=== PATIENT | male | born 1965 | race Caucasian/White ===

== ENCOUNTER 2017-07-07 07:04 | Day surgery (SDC) | payer OTHER ==
[~2017-07-07 07:04] MED LIST: Buffered Lidocaine 0.9% SYRIN* 5 ML/SYR SYRINGE INTRADERM ONE
[2017-07-07] MEDS ORDERED: Buffered Lidocaine 0.9% SYRIN* 5 ML/SYR SYRINGE ONE (07:12)
[2017-07-07] MEDS ORDERED: Bupivacaine 0.25% SDV* 30 ML ONE (07:44)
[2017-07-07] MEDS ORDERED: Midazolam* 1 MG/ML 5 ML VIAL (5 MG) ONE (08:37)
[2017-07-07] MEDS ORDERED: fentaNYL* 50 MCG/ML 2 ML VIAL (100 MCG VIAL) ONE (08:44)
[2017-07-07] MEDS ORDERED: Propofol* 10 MG/ML 20 ML BTL IV PUSH ONE (08:53)
[2017-07-07] MEDS ORDERED: Midazolam* 1 MG/ML 2 ML VIAL (2 MG) ONE (08:59)
[2017-07-07] MEDS ORDERED: oxyCODONE TAB* 5 MG TAB PO PRN (09:10)
[2017-07-07] MEDS ORDERED: fentaNYL* 50 MCG/ML 2 ML VIAL (100 MCG VIAL) IV PRN (09:10)
[2017-07-07] MEDS ORDERED: HYDROcodone/ACETAMIN 5-325 MG* 1 TAB PO PRN (09:10)
[2017-07-07] MEDS ORDERED: Ondansetron INJ* 2 MG/ML VIAL IV PRN (09:10)
[2017-07-07] MEDS ORDERED: Naloxone* 0.4 MG/ML 1 ML VIAL IV PRN (09:10)
[2017-07-07 09:50] VITALS: BP 131/71
--- NOTE | 2017-07-08 14:56 | OP ---
DATE OF OPERATION: 07/07/17 - SDS DATE OF : 65 SURGEON: Moises Burkett MD SENIOR EDITOR: VALDEZ Madsen ANESTHESIOLOGIST: Carter Ahmadi MD ANESTHESIA: Local MAC. PRE-OP DIAGNOSIS: Right dorsal ulnar wrist mass. POST-OP DIAGNOSIS: Large right dorsal ulnar wrist cyst. OPERATIVE PROCEDURE: Excision of right dorsal ulnar wrist ganglion cyst coming off the distal radioulnar joint with transposition of the EDQ tendon. INDICATIONS: Prasanna has had enlarging mass over the dorsal ulnar aspect of the wrist. It was bothering him a quite a bit. We talked about risks and benefits. He wanted it excised. ESTIMATED BLOOD LOSS: 2 mL. COMPLICATIONS: None. FINDINGS: See above and below. DESCRIPTION OF PROCEDURE: Prasanna was seen in the preoperative holding area. The correct site and side of the procedure were identified. We came back to the operating room. The arm was prepped and draped in the usual fashion. The time-out was performed. I had infiltrated the operative site with 0.25% plain Marcaine. The arm was exsanguinated with the Esmarch and the tourniquet inflated to 250 mmHg. I made a longitudinal incision right over the fifth dorsal compartment and over the mass. Dissection was carried down. Extensor retinaculum was identified. There were two large areas of ganglion cyst. These were ellipsed out and ultimately tracked down through the extensor retinaculum into the fifth dorsal compartment and ultimately down to the DRUJ. The EDQ tendon was released and transposed dorsal to the retinaculum. Once I had opened up the retinaculum and transposed the tendon, I could easily trace the tendon back and it was excised. I took the Bovie and cauterized the area where it came off the joint. The tendon was left transposed and the extensor retinaculum was closed with 4-0 Ethibond suture. The wound was irrigated and the skin was closed with 4-0 Monocryl and Steri-Strips. Wound was dressed with Xeroform, 4x4, sterile Webril, and a cock-up wrist splint was applied. The tourniquet was deflated. The patient was taken to the recovery room in stable condition. [id number]/[facility] #: [id number] [facility]
== END 2017-07-07 09:56 | disposition home or self-care (01) ==
LOC: OR 07:04
PROVIDERS: ATTEND Orthopaedic Surgery Hand Surgery
DX: M67.431 Ganglion, right wrist (principal); F17.210 Nicotine dependence, cigarettes, uncomplicated; I10 Essential (primary) hypertension; F10.20 Alcohol dependence, uncomplicated; E83.110 Hereditary hemochromatosis; K29.70 Gastritis, unspecified, without bleeding
CPT/HCPCS: 88304; J2250; J2704; J3010

== ENCOUNTER 2018-03-15 21:19 | Inpatient (IN) | payer OTHER ==
[2018-03-15 21:52] LABS: EGFR Non-African American 116.5 (>60)
[2018-03-15] MEDS ORDERED: NS 0.9% 1000 ML* 1,000 ML IV ONE (22:14)
[2018-03-15 22:33] LABS: Hematocrit 45 % (42-52); Hemoglobin 15.1 g/dl (14.0-18.0); Mean Corpuscular HGB Conc 34 g/dl (31-36); Mean Corpuscular Hemoglobin 36 pg (27-31); Mean Corpuscular Volume 106 fL (80-94); Red Blood Count 4.22 10^6/ul (4.00-5.40); Red Cell Distribution Width 16 % (10.5-15); White Blood Count 4.9 10^3/ul (3.5-10.8)
--- NOTE | 2018-03-15 22:33 | ED ---
Syncope/Near Syncope - HPI Summary HPI Summary: This patient is a 52 year old M presenting to [facility] accompanied by his and daughter with a chief complaint of multiple witnessed syncopal episodes since falling backwards on stairs, with at least 5 episodes SHIPFITTER, and at least 3 since arrival. Pt was walking up stairs and fell backwards. He laid down for a few hours, and when he woke up starting fainting recurrently. PMHx HTN, hemochromatosis, 7x MIs with no stents. PMHx alcohol use; 15 beers every 2 days. He endorses chronic bilateral lower extremity numbness. He denies PMHx CVA. Pt denies any pain, LEE. He denies using recreational drugs, and endorses smoking. - History Of Current Complaint Chief Complaint: EDSyncope Time Seen by Provider: 03/15/18 21:35 Hx Obtained From: Patient, Family/Computer Lab Para Professional Onset/Duration: Sudden Onset, Lasting Hours, Still Present Timing: Intermittent Episode Lasting - seconds Context: Witnessed, Loss Of Consciousness Activity At Onset: At Rest Associated Head Trauma: No Aggravating Factor(s): Nothing Alleviating Factor(s): Nothing Associated Signs And Symptoms: Head Trauma (Recent) - possible, fell on stairs prior to sx onset, but denies head pain., Numbness - BLE, chronic Frequency: Episodes x___ - at least 8, Episodes Lasting ____ (in Mins/Days/Weeks /Years) - seconds - Allergies/Home Medications Allergies/Adverse Reactions: Allergies Allergy/AdvReac Type Severity Reaction Status Date / Time cyclobenzaprine Allergy Severe Anaphylatic Verified 09/04/17 11:22 [From Flexeril] Shock latex Allergy Rash Verified 09/04/17 11:22 aspirin AdvReac Stomach Verified 09/04/17 11:22 Cramps ibuprofen AdvReac Stomach Verified 09/04/17 11:22 Cramps PMH/Surg Hx/FS Hx/Imm Hx Endocrine/Hematology History: Reports: Other Endocrine/Hematological Disorders - Hemochromotosis Denies: Hx Diabetes Cardiovascular History: Reports: Hx Hypercholesterolemia, Hx Hypertension - ON MEDICATION, Hx Syncope Denies: Hx Pacemaker/ICD Respiratory History: Reports: Hx Pneumonia, Hx Seasonal Allergies GI History: Reports: Hx Gastroesophageal Reflux Disease, Hx Ulcer History: Denies: Hx Renal Disease Musculoskeletal History: Reports: Hx Arthritis - HANDS, Hx Back Problems, Hx Orthopedic Injury Sensory History: Reports: Hx Contacts or Glasses, Hx Eye Injury Denies: Hx Legally Blind, Hx Deafness, Hx Hearing Aid Opthamlomology History: Reports: Hx Contacts or Glasses, Hx Eye Injury Denies: Hx Legally Blind EENT History: Denies: Hx Deafness Neurological History: Reports: Hx Headaches, Hx Peripheral Neuropathy Psychiatric History: Reports: Hx Substance Abuse - alcohol Denies: Hx Panic Disorder - Surgical History Surgery Procedure, Year, and Place: Piece of metal removed from left eye 1987 done in [place]. Hx Anesthesia Reactions: No - Immunization History Date of Tetanus Vaccine: utd Date of Influenza Vaccine: utd Infectious Disease History: No Infectious Disease History: Denies: Traveled Outside the [place] in Last 30 Days - Family History Known Family History: Negative: Blood Disorder - Social History Lives: With Family Alcohol Use: Daily Alcohol Amount: 7.5 beers a day Hx Substance Use: No Substance Use Type: Reports: None Hx Tobacco Use: Yes Smoking Status (MU): Current Every Day Smoker Type: Cigarettes Amount Used/How Often: 10 cigarettes/ day Have You Smoked in the Last Year: Yes Review of Systems Positive: no symptoms reported Positive: Decreased ROM - BLE Positive: Weakness - BLE, Numbness - BLE, Syncope - multiple episodes with LOC All Other Systems Reviewed And Are Negative: Yes Physical Exam - Summary Physical Exam Summary: Appearance: Well appearing, no pain distress Skin: warm, dry, reflects adequate perfusion Head/face: normal Eyes: EOMI, CARLOS EDUARDO ENT: normal Neck: supple, non-tender Respiratory: CTA, breath sounds present Cardiovascular: RRR, pulses symmetrical Abdomen: non-tender, soft Bowel: present Musculoskeletal: normal, strength/ROM intact Neuro: normal, sensory motor intact, A&Ox3 Triage Information Reviewed: Yes Vital Signs On Initial Exam: Initial Vitals Pulse Resp Pulse Ox 87 16 94 03/15/18 21:24 03/15/18 21:24 03/15/18 21:24 Vital Signs Reviewed: Yes - Pily Coma Scale Best Eye Response: 4 - Spontaneous Best Motor Response: 6 - Obeys Commands Best Verbal Response: 5 - Oriented Coma Scale Total: 15 Diagnostics - Vital Signs Vital Signs Temp Pulse Resp BP Pulse Ox 03/15/18 21:26 98.1 F 86 14 108/73 95 03/15/18 21:25 94 14 108/73 98 03/15/18 21:24 87 16 94 - Laboratory Lab Results: Lab Results 03/15/18 Range/Units 21:26 Sodium 132 L (135-145) mmol/L Potassium 4.0 (3.5-5.0) mmol/L Chloride 99 L (101-111) mmol/L Carbon Dioxide 22 (22-32) mmol/L Anion Gap 11 (2-11) mmol/L BUN 7 (6-24) mg/dL Creatinine 0.71 (0.67-1.17) mg/dL Est GFR ( Amer) 141.0 (>60) Est GFR (Non-Af Amer) 116.5 (>60) BUN/Creatinine Ratio 9.9 (8-20) Glucose 115 H (70-100) mg/dL Calcium 8.8 (8.6-10.3) mg/dL Result Diagrams: 03/15/18 21:26 03/15/18 21:26 Lab Statement: Any lab studies that have been ordered have been reviewed, and results considered in the medical decision making process. - Radiology CXR Xray Interpretation: No Acute Changes Radiology Interpretation Completed By: ED Physician - Negative. Pending official imaging report. - CT C-Spine CT Interpretation: No Acute Changes CT Interpretation Completed By: Radiologist - 1. No cervical spine traumatic abnormalities. 2. Mild C6-C7 cervical spondylopathy. Dr. Masterson has reviewed this report. Brain CT Interpretation: No Acute Changes CT Interpretation Completed By: Radiologist - 1. No traumatic intracranial abnormalities. 2. Age-related atrophy and mild chronic small vessel ischemic disease. Dr. Masterson has reviewed this report. - EKG 2125 Cardiac Rate: NL - 81 EKG Rhythm: Sinus Rhythm ST Segment: Normal Ectopy: None EKG Interpretation: No acute changes. Course/Dx Course Of Treatment: A 52-year-old M presents to the ED with a CC of multiple syncopal episodes, with at least 5 SHIPFITTER, and at least 3 s/p arrival. (+) LOC, associated trauma (fall on stairs). (-) head trauma, pain, LEE. Pt drinks 7 to 8 beers a night, PMHx 7 MIs, hemochromatosis, and HTN. He endorses BLE numbness making ambulation difficult. A CXR was (-). A CT c-spine reveals: 1. No cervical spine traumatic abnormalities. 2. Mild C6-C7 cervical spondylopathy. A CT brain reveals: 1. No traumatic intracranial abnormalities. 2. Age-related atrophy and mild chronic small vessel ischemic disease. An EKG reveals NSR at 81 BPM with no acute changes. In the ED course, pt was given nl saline. Labs and UA obtained and reviewed. - Diagnoses Differential Diagnosis/HQI/PQRI: Positive: Dysrhythmia, Metabolic Reaction, Vasovagal Episode, Other - SYNCOPY/ALCOHOL INTOX Provider Diagnoses: Syncope, Alcohol intoxication - Physician Notifications Discussed Care of Patient With: Flavio Chahal Time Discussed With Above Provider: 23:30 Instructed by Provider To: Other - Accepts admission. - Critical Care Time Critical Care Time: 30-74 min Discharge - Sign-Out/Discharge Documenting (check all that apply): Patient Departure - Admit - Discharge Plan Condition: Fair Disposition: ADMITTED TO [facility] Referrals: Christiana Palmer MD [Primary Care Provider] - - Billing Disposition and Condition Condition: FAIR Disposition: Admitted to [facility] - Attestation Statements Document Initiated by Miroslavaibe: Yes Documenting Scribe: Jaylan Rodas Provider For Whom Miroslavaibe is Documenting (Include Credential): Dr. Bruce Masterson MD Scribe Attestation: Jaylan Trujillo scribed for Dr. Bruce Masterson MD on 03/16/18 at 0017. Scribe Documentation Reviewed: Yes Provider Attestation: The documentation as recorded by the Jaylan curry accurately reflects the service I personally performed and the decisions made by , Dr. Bruce Masterson MD
[2018-03-15 22:36] LABS: ABS Basophils 0.1 10^3/ul (0-0.2); ABS Eosinophils 0.1 10^3/ul (0-0.6); ABS Monocytes 0.7 10^3/ul (0-0.8); ABS Nucleated RBC 0 10^3/ul; Eosinophil % 1.7 % (0-6); Lymphocyte % 40.7 % (25-47); Nucleated Red Blood Cells % 0.2; Platelet Count 152 10^3/ul (150-450)
[2018-03-15 22:38] LABS: INR 0.84 (0.77-1.02)
--- NOTE | 2018-03-15 22:46 | RAD ---
EXAM: CT Head Without Intravenous Contrast CLINICAL HISTORY: 52 years old, male; Signs and symptoms; Syncope and collapse; Additional info: Head injury TECHNIQUE: Axial computed tomography images of the head/brain without intravenous contrast. All CT scans at this facility use at least one of these dose optimization techniques: automated exposure control; mA and/or kV adjustment per patient size (includes targeted exams where dose is matched to clinical indication); or iterative reconstruction. COMPARISON: No relevant prior studies available. FINDINGS: Brain: Small round focus of low attenuation left thalamus. Mild periventricular and subcortical low attenuation without adjacent mass effect. No acute ischemic changes, extra axial fluid collections, intraparenchymal hemorrhage, or midline shift. Ventricles: The ventricles and extraventricular CSF spaces are widened although symmetrically positioned along the midline. Bones/joints: No acute fracture. No suspicious osseous lesions. Soft tissues: Normal. Vasculature: The vasculature demonstrates diffuse moderate atherosclerotic calcification. Sinuses: Normal as visualized. Mastoid air cells: Normal as visualized. No mastoid effusion. IMPRESSION: 1. No traumatic intracranial abnormalities. 2. Age-related atrophy and mild chronic small vessel ischemic disease.
--- NOTE | 2018-03-15 22:58 | RAD ---
EXAM: CT Cervical Spine Without Intravenous Contrast CLINICAL HISTORY: 52 years old, male; Pain; Neck pain; Additional info: Neck pains TECHNIQUE: Axial computed tomography images of the cervical spine without intravenous contrast. All CT scans at this facility use at least one of these dose optimization techniques: automated exposure control; mA and/or kV adjustment per patient size (includes targeted exams where dose is matched to clinical indication); or iterative reconstruction. COMPARISON: No relevant prior studies available. FINDINGS: Vertebrae: Normal cervical lordosis without spondylolisthesis.The craniocervical junction and atlantoaxial articulation are symmetric and normal. No fractures. Vertebral body heights are maintained. Discs/spinal canal/neural foramina: C2-C3:There is no significant disc space narrowing. No canal stenosis or foraminal narrowing. The facet joints are normal. C3-C4:There is no significant disc space narrowing. No canal stenosis or foraminal narrowing. The facet joints are normal. C4-C5: There is no significant disc space narrowing. No canal stenosis or foraminal narrowing. The facet joints are normal. C5-C6:There is no significant disc space narrowing. No canal stenosis or foraminal narrowing. The facet joints are normal. C6-C7: Disc space loss with endplate osteophytes. Bilateral uncovertebral hypertrophy causing moderate right and mild left neural foraminal narrowing. C7-T1:There is no significant disc space narrowing. No canal stenosis or foraminal narrowing. The facet joints are normal. Soft tissues: Normal. Lung apices: Single right apical bleb. Vasculature:The vasculature demonstrates diffuse mild atherosclerotic calcification. IMPRESSION: 1. No cervical spine traumatic abnormalities. 2. Mild C6-C7 cervical spondylopathy.
[2018-03-15 23:16] LABS: Urine Appearance Clear; Urine Blood Negative (Negative); Urine Color Yellow; Urine Ketones Negative (Negative); Urine Protein Negative (Negative); Urine Specific Gravity 1.002 (1.010-1.030); Urine Urobilinogen Negative (Negative)
--- NOTE | 2018-03-16 02:36 | HP ---
H&P (Free Text) History and Physical: PCP: Suhail Palmer MD Date/Time: 03/16/2018 0230 CC: syncope HPI: Mr Rodriguez is a 52YO alcoholic male typically drinking a case of beer daily w/ HX hemachromatosis, CAD, HTN, HLD, polyneuropathy who around 1500 "collapsed" for "a few hours". He daughter arrived home around 1900 and he informed her of the episode. She was helping him upstairs and he passed out again this time for ~10minutes falling backwards down the stairs. EMS was called and he reportedly syncopized in the ambulance and further here in ED. In ED nursing reports he would be talking one minute and 'out' the next. No telemetry irregularities associated. Mr Rodriguez denies prodromal symptoms, chest pain, SOB, palpitations, N/V, light-headedness, and sweats. Evaluation is most notable for a blood alcohol of 487. PMedHx alcoholism degenerative disc disease hemochromotosis CAD HTN HLD peripheral polyneuropathy GERD Ambulatory Orders Nursing to reconcile. Felodipine [Felodipine ER] 5 mg PO QAM 02/10/14 Lisinopril TAB* [Prinivil TAB*] 5 mg PO QAM 02/10/14 Lipitor 10 MG* 10 mg PO BEDTIME 01/09/15 Omeprazole 40 mg PO QAM 04/16/16 traZODone TAB* [Desyrel TAB*] 50 mg PO BEDTIME 06/27/17 Acetaminophen [Tylenol] 325 mg PO DAILY 08/18/17 Cetirizine HCl [Zyrtec] 20 mg PO DAILY 08/18/17 Oxycodone HCl [Roxicodone] 15 mg PO BID 08/18/17 Allergies cyclobenzaprine [From Flexeril] Allergy (Severe, Verified 09/04/17 11:22) Anaphylatic Shock latex Allergy (Verified 09/04/17 11:22) Rash aspirin Adverse Reaction (Verified 09/04/17 11:22) Stomach Cramps ibuprofen Adverse Reaction (Verified 09/04/17 11:22) Stomach Cramps PSurgHx denies SocHx: 1PPD cigarettes, 1 case beer daily (per daughter from shortly after awakening in the AM until going to bed), denies recreational drugs; , lives with his ; full code status FamHx: Sister: hemochromatosis ROS: as above, otherwise reviewed and all were negative vitals: Vital Signs Temp 36.7 C 03/15/18 21:26 Pulse 87 03/16/18 03:18 Resp 21 03/16/18 03:18 BP 110/74 03/16/18 03:18 Pulse Ox 90 03/16/18 03:18 Intake & Output 03/15/18 03/15/18 03/16/18 11:59 23:59 11:59 Intake Total 1000 Balance 1000 Weight 78.925 kg Intake: IV Fluids 1000 Constitutional: NAD, normally developed, well-nourished white male HEENM: atraumatic; sclera/conjunctiva: anicteric/clear; hearing: clinically intact; oropharynx: clear, mucosa moist Neck: soft tissue: non-tender, full ROM; thyroid: normal Pulmonary: clear to auscultation bilaterally, good aeration, no accessory muscle use CV: RR/RR, normal S1S2, no carotid bruit, no jugular venous distention, 2+ B DP/ PT, no edema Abdominal: soft, non-distended, non-tender, no rebound/guarding/rigidity, normoactive bowel sounds, no hepatosplenomegaly or masses, no costovertebral angle tenderness Musculoskeletal: general: grossly intact, non-tender Integumental: bruising BUE Psychiatric orientation: AA&O to PPS affect: calm mood: cooperative eye contact: fair content: seemingly reliable responses: timely insight: poor Testing: Lab Results 03/15/18 03/15/18 03/15/18 Range/Units 21:26 21:26 21:26 WBC 4.9 (3.5-10.8) 10^3/ul RBC 4.22 (4.00-5.40) 10^6/ul Hgb 15.1 (14.0-18.0) g/dl Hct 45 (42-52) % MCV 106 H (80-94) fL MCH 36 H (27-31) pg MCHC 34 (31-36) g/dl RDW 16 H (10.5-15) % Plt Count 152 (150-450) 10^3/ul MPV 9.0 (7.4-10.4) um3 Neut % (Auto) 40.8 (38-83) % Lymph % (Auto) 40.7 (25-47) % [place] % (Auto) 14.3 H (0-7) % Eos % (Auto) 1.7 (0-6) % Baso % (Auto) 2.5 H (0-2) % Absolute Neuts (auto) 2.0 (1.5-7.7) 10^3/ul Absolute Lymphs (auto) 2.0 (1.0-4.8) 10^3/ul Absolute Monos (auto) 0.7 (0-0.8) 10^3/ul Absolute Eos (auto) 0.1 (0-0.6) 10^3/ul Absolute Basos (auto) 0.1 (0-0.2) 10^3/ul Absolute Nucleated RBC 0 10^3/ul Nucleated RBC % 0.2 INR (Anticoag Therapy) 0.84 (0.77-1.02) APTT 34.8 (26.0-36.3) seconds Sodium 132 L (135-145) mmol/L Potassium 4.0 (3.5-5.0) mmol/L Chloride 99 L (101-111) mmol/L Carbon Dioxide 22 (22-32) mmol/L Anion Gap 11 (2-11) mmol/L BUN 7 (6-24) mg/dL Creatinine 0.71 (0.67-1.17) mg/dL Est GFR ( Amer) 141.0 (>60) Est GFR (Non-Af Amer) 116.5 (>60) BUN/Creatinine Ratio 9.9 (8-20) Glucose 115 H (70-100) mg/dL Lactic Acid (0.5-2.0) mmol/L Calcium 8.8 (8.6-10.3) mg/dL Total Bilirubin 0.70 (0.2-1.0) mg/dL AST 160 H (13-39) U/L ALT 69 H (7-52) U/L Alkaline Phosphatase 114 H (34-104) U/L Myoglobin 72.2 (17.4-105.7) ng/mL Troponin I 0.00 (<0.04) ng/mL Total Protein 7.2 (6.4-8.9) g/dL Albumin 4.0 (3.2-5.2) g/dL Globulin 3.2 (2-4) g/dL Albumin/Globulin Ratio 1.3 (1-3) TSH 3.51 (0.34-5.60) mcIU/mL Urine Color Urine Appearance Urine pH (5-9) Ur Specific [place] (1.010-1.030) Urine Protein (Negative) Urine Ketones (Negative) Urine Blood (Negative) Urine Nitrate (Negative) Urine Bilirubin (Negative) Urine Urobilinogen (Negative) Ur Leukocyte Esterase (Negative) Urine Glucose (Negative) Serum Alcohol 487 H* (<10) mg/dL 03/15/18 03/15/18 03/16/18 Range/Units 21:26 23:07 01:04 WBC (3.5-10.8) 10^3/ul RBC (4.00-5.40) 10^6/ul Hgb (14.0-18.0) g/dl Hct (42-52) % MCV (80-94) fL MCH (27-31) pg MCHC (31-36) g/dl RDW (10.5-15) % Plt Count (150-450) 10^3/ul MPV (7.4-10.4) um3 Neut % (Auto) (38-83) % Lymph % (Auto) (25-47) % [place] % (Auto) (0-7) % Eos % (Auto) (0-6) % Baso % (Auto) (0-2) % Absolute Neuts (auto) (1.5-7.7) 10^3/ul Absolute Lymphs (auto) (1.0-4.8) 10^3/ul Absolute Monos (auto) (0-0.8) 10^3/ul Absolute Eos (auto) (0-0.6) 10^3/ul Absolute Basos (auto) (0-0.2) 10^3/ul Absolute Nucleated RBC 10^3/ul Nucleated RBC % INR (Anticoag Therapy) (0.77-1.02) APTT (26.0-36.3) seconds Sodium (135-145) mmol/L Potassium (3.5-5.0) mmol/L Chloride (101-111) mmol/L Carbon Dioxide (22-32) mmol/L Anion Gap (2-11) mmol/L BUN (6-24) mg/dL Creatinine (0.67-1.17) mg/dL Est GFR ( Amer) (>60) Est GFR (Non-Af Amer) (>60) BUN/Creatinine Ratio (8-20) Glucose (70-100) mg/dL Lactic Acid 4.0 H* (0.5-2.0) mmol/L Calcium (8.6-10.3) mg/dL Total Bilirubin (0.2-1.0) mg/dL AST (13-39) U/L ALT (7-52) U/L Alkaline Phosphatase (34-104) U/L Myoglobin (17.4-105.7) ng/mL Troponin I 0.00 (<0.04) ng/mL Total Protein (6.4-8.9) g/dL Albumin (3.2-5.2) g/dL Globulin (2-4) g/dL Albumin/Globulin Ratio (1-3) TSH (0.34-5.60) mcIU/mL Urine Color Yellow Urine Appearance Clear Urine pH 6.0 (5-9) Ur Specific [place] 1.002 L (1.010-1.030) Urine Protein Negative (Negative) Urine Ketones Negative (Negative) Urine Blood Negative (Negative) Urine Nitrate Negative (Negative) Urine Bilirubin Negative (Negative) Urine Urobilinogen Negative (Negative) Ur Leukocyte Esterase Negative (Negative) Urine Glucose Negative (Negative) Serum Alcohol (<10) mg/dL ECG, personally reviewed: NSR rate 81, no ischemia CXR, personally reviewed: no acute process CT brain WO, personally reviewed: IMPRESSION: 1. No traumatic intracranial abnormalities. 2. Age-related atrophy and mild chronic small vessel ischemic disease. CT C-spine WO: IMPRESSION: 1. No cervical spine traumatic abnormalities. 2. Mild C6-C7 cervical spondylopathy. Impression: 52M HX hemachromatosis, CAD, HTN, HLD, polyneuropathy presents with acute/chronic alcohol intoxication PRADO 487 & new recurrent syncope of uncertain etiology DIAGNOSIS & PLAN Primary recurrent syncope : while in the setting of acute/chronic alcohol intoxication, he has not done this previously : telemetry : ECHO in AM ?alcoholic cardiomyopathy ?aortic stenosis : IVFs : check orthostatics : PT evaluation : supportive care Secondary alcoholism : advised treatment to abstain particularly given hemochromatosis, no motivation : WAM protocol degenerative disc disease : continue oxycodone ER hemochromatosis : no acute issues CAD : no acute issues HTN : continue lisinopril & amlodipine HLD : continue atorvastatin peripheral polyneuropathy GERD : continue omeprazole Admission Rational: observation for syncope work up DVTp: ELINA Code Status: full HCP:
[2018-03-16] MEDS ORDERED: Acetaminophen TAB* 325 MG PO PRN (03:21)
[2018-03-16] MEDS ORDERED: LORazepam INJ* 2 MG/ML 1 ML VIAL IV PUSH SCH (04:00)
[2018-03-16] MEDS ORDERED: Thiamine IV* 100 MG/ML 2 ML VIAL IM ONE (04:00)
--- NOTE | 2018-03-16 08:23 | RAD ---
Indication: Syncope Comparison: July 01, 2016 Technique: Sitting AP chest 2247 hours Report: Rarefaction of interstitial markings. No focal pulmonary lesion, compelling alveolar consolidation, pleural effusion, pneumothorax. The heart, pulmonary vasculature, and mediastinal contours are unremarkable. IMPRESSION: #. Stigmata of potential obstructive lung disease. #. No evidence for acute intrathoracic disease.
[2018-03-16] MEDS: Thiamine TAB* 100 MG TAB PO SCH (08:32)
[2018-03-16] MEDS: Multivitamins/Minerals TAB PO SCH (08:32)
[2018-03-16] MEDS: Lisinopril TAB* 5 MG PO SCH (08:32)
[2018-03-16] MEDS: Folic Acid TAB* 1 MG PO SCH (08:32)
[2018-03-16] MEDS: oxyCODONE SR TAB(*) 15 MG TAB.SR PO SCH ×2 (08:33→20:30)
[2018-03-16] MEDS: Omeprazole CAP* 20 MG PO SCH (08:38)
[2018-03-16] MEDS ORDERED: Docusate CAP* 100 MG PO SCH (09:00)
[2018-03-16] MEDS ORDERED: amLODIPine TAB* 5 MG PO SCH (09:00)
--- NOTE | 2018-03-16 10:47 | PN ---
Subjective Date of Service: 03/16/18 Interval History: Pt states he will stop abusing alcohol now. He had LOC before his fall. Appetite OK. Objective Active Medications: Atorvastatin Calcium (Lipitor*) 10 mg PO BEDTIME [facility] Chlordiazepoxide (Librium Cap*) 50 mg PO TID [facility] Folic Acid (Folvite Tab*) 1 mg PO DAILY [facility] Last Admin: 03/16/18 08:32 Dose: 1 mg Sodium Chloride (Ns 0.9% 1000 Ml*) 1,000 mls @ 75 mls/hr IV PER RATE [facility] Lisinopril (Prinivil Tab*) 5 mg PO QAM [facility] Last Admin: 03/16/18 08:32 Dose: 5 mg Multivitamins/Minerals (Theragran/Minerals Tab*) 1 tab PO DAILY [facility] Last Admin: 03/16/18 08:32 Dose: 1 tab Omeprazole (Prilosec Cap*) 40 mg PO QAM@0730 [facility] Last Admin: 03/16/18 08:38 Dose: 40 mg Oxycodone HCl (Oxycontin(*)) 15 mg PO BID [facility] Last Admin: 03/16/18 08:33 Dose: 15 mg Thiamine HCl (Vitamin B-1 Tab*) 100 mg PO DAILY [facility] Last Admin: 03/16/18 08:32 Dose: 100 mg Trazodone HCl (Desyrel Tab*) 50 mg PO BEDTIME [facility] Vital Signs - 8 hr 03/16/18 03/16/18 03/16/18 02:46 02:48 03:00 Temperature Pulse Rate 86 Respiratory 19 15 16 Rate Blood Pressure 120/83 101/76 (mmHg) O2 Sat by Pulse 95 Oximetry 03/16/18 03/16/18 03/16/18 03:04 03:18 04:15 Temperature 97.9 F Pulse Rate 87 87 Respiratory 18 21 21 Rate Blood Pressure 95/55 110/74 110/74 (mmHg) O2 Sat by Pulse 90 94 Oximetry 03/16/18 03/16/18 03/16/18 04:20 04:54 05:57 Temperature 98.5 F Pulse Rate 87 85 Respiratory 20 20 20 Rate Blood Pressure 139/77 126/87 (mmHg) O2 Sat by Pulse 97 97 Oximetry 03/16/18 03/16/18 03/16/18 08:07 08:33 10:00 Temperature 98.3 F Pulse Rate 77 Respiratory 20 16 16 Rate Blood Pressure 129/77 (mmHg) O2 Sat by Pulse 97 Oximetry Oxygen Devices in Use Now: None Appearance: Alert, in good spirits. Partly up in bed. Looks comfortable. Eyes: No Scleral Icterus Respiratory: Symmetrical Chest Expansion and Respiratory Effort, Clear to Auscultation, Clear to Percussion Cardiovascular: NL Sounds; No Murmurs; No JVD, RRR, No Edema, - Abdominal: NL Sounds; No Tenderness; No Distention, No Hepatosplenomegaly, - Extremities: No Edema, No Clubbing, Cyanosis, - Skin: No Rash or Ulcers, No Nodules or Sclerosis, - Neurological: Alert and Oriented x 3, NL Sensation - mod sustention tremor. Both legs weak. Result Diagrams: 03/15/18 21:26 03/15/18 21:26 Additional Lab and Data: Lab Results 03/15/18 Range/Units 21:26 Sodium 132 L (135-145) mmol/L Potassium 4.0 (3.5-5.0) mmol/L Chloride 99 L (101-111) mmol/L Carbon Dioxide 22 (22-32) mmol/L Anion Gap 11 (2-11) mmol/L BUN 7 (6-24) mg/dL Creatinine 0.71 (0.67-1.17) mg/dL Est GFR ( Amer) 141.0 (>60) Est GFR (Non-Af Amer) 116.5 (>60) BUN/Creatinine Ratio 9.9 (8-20) Glucose 115 H (70-100) mg/dL Calcium 8.8 (8.6-10.3) mg/dL Assess/Plan/Problems-Billing Assessment: - Patient Problems (1) Alcoholism Current Visit: Yes Status: Acute Code(s): F10.20 - ALCOHOL DEPENDENCE, UNCOMPLICATED SNOMED Code(s): 9487899 Comment: With alcoholic liver disease, early withdrawal sx's, 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 PTN and scheduled chlordiazepoxide ordered. (2) Hemochromatosis Current Visit: Yes Status: Acute Code(s): E83.119 - HEMOCHROMATOSIS, UNSPECIFIED SNOMED Code(s): 392432053 Comment: Dx noted. (3) CAD (coronary artery disease) Current Visit: Yes Status: Acute Code(s): I25.10 - ATHSCL HEART DISEASE OF [place] CORONARY ARTERY W/O ANG PCTRS SNOMED Code(s): 74744195 Comment: Continue statin. Pt states he can't take ASA because it makes his stomach bleed and he wasn't offered an alternative medication. (4) HTN (hypertension) Current Visit: Yes Status: Acute Code(s): I10 - ESSENTIAL (PRIMARY) HYPERTENSION SNOMED Code(s): 33421532 Comment: Continue lisinopril. (5) Gait disorder Current Visit: Yes Status: Acute Code(s): R26.9 - UNSPECIFIED ABNORMALITIES OF GAIT AND MOBILITY SNOMED Code(s): 71069052 Comment: Continue PT. Re-evluate 03/17.
[2018-03-16] MEDS: chlordiazePOXIDE CAP* 25 MG PO SCH ×3 (11:41→20:31)
--- NOTE | 2018-03-16 14:36 | ECHO ---
Patient: OC RIOS [facility] Rec#: [id number] : 1965 Date: 03/16/2018 Age: 52y Height: 183 cm / 72.0 in Weight: 78.9 kg / 173.9 lbs Sex: M BSA: 2.01 Room#: [facility] Admit Date#: 03/16/2018 Type: Inpatient Referring: Flavio Chahal MD Reading: Shilo Acosta MD Global Marketing Manager: Dora Tarango RDCS CC: MAN HYLTON Transthoracic Echocardiogram Indication: Syncope BP: 126/87 HR: 76 Rhythm: NSR Findings History: Hemachromatosis, CAD, HTN, HLD, alcoholism, smoker. Technical Comments: The study quality is fair. Completed at 1200. Left Ventricle: The left ventricular chamber size is mildly dilated. There is no left ventricular hypertrophy. There is global hypokinesis of the left ventricle with minor regional variation. There is mildly decreased left ventricular systolic function. The estimated ejection fraction is 45-50%. Abnormal left ventricular diastolic function is observed. There is an E to A reversal in the mitral valve flow pattern suggestive of diastolic dysfunction. Left Atrium: The left atrial chamber size is normal. Right Ventricle: Moderator Band present. The right ventricle is mildly dilated. The right ventricular global systolic function is normal. Right Atrium: The right atrium is mildly dilated. Aortic Valve: The aortic valve is trileaflet. The aortic valve leaflets are mildly thickened. There is no evidence of aortic regurgitation. There is no evidence of aortic stenosis. Mitral Valve: The mitral valve leaflets are mildly thickened. There is a trace of mitral regurgitation. There is no evidence of mitral stenosis. Tricuspid Valve: The tricuspid valve leaflets are normal. There is trace tricuspid regurgitation. Unable to estimate the right ventricular systolic pressure. There is no tricuspid stenosis. Pulmonic Valve: The pulmonic valve appears normal. There is a trace pulmonic regurgitation. There is no pulmonic stenosis. Pericardium: There is no significant pericardial effusion. A pericardial fat pad is visualized. Aorta: There is mild dilatation of the ascending aorta. There is no dilatation of the aortic arch. There is mild dilatation of the aortic root. Pulmonary Artery: The main pulmonary artery is not well visualized. Venous: The inferior vena cava appears normal in size. There is a greater than 50% respiratory change in the inferior vena cava dimension. Summary: There was not any prior study for comparison. Conclusions There is global hypokinesis of the left ventricle with minor regional variation. There is mildly decreased left ventricular systolic function. The estimated ejection fraction is 45-50%. The right ventricular global systolic function is normal. The aortic valve leaflets are mildly thickened. There is no evidence of aortic stenosis. There is a trace of mitral regurgitation. There is trace tricuspid regurgitation. Unable to estimate the right ventricular systolic pressure. There is no significant pericardial effusion. Measurements Name Value Normal Range RVIDd (AP) 2D 3.14 cm (0.9 - 2.6) RVDdMajor (2D) 4.5 cm (2.2 - 4.4) RAd ISD 4CH 4.7 cm (3.4 - 4.9) RA (A4C)W 4.7 cm (2.9 - 4.6) IVSd (2D) 0.7 cm (0.6 - 1) LVPWd (2D) 1 cm (0.6 - 1) LVIDd (2D) 5.5 cm (3.6 - 5.4) LVIDs (2D) 4.1 cm - LV FS (2D) 26 % (25 - 45) Aortic Annulus 2.4 cm (1.4 - 2.6) Ao root diameter (2D) 3.6 cm (2.1 - 3.5) Ascending Ao 3.9 cm (2.1 - 3.4) Aortic arch 2.5 cm (1.8 - 3.4) LA dimension (AP) 2D 3.5 cm (2.3 - 3.8) LAd ISD 4CH 5 cm (2.9 - 5.3) LA ISD 4CH W 4.8 cm (2.5 - 4.5) Name Value Normal Range LA ESV BP (A/L) index 38 ml/m2 - Name Value Normal Range MV E-wave Vmax 0.7 m/sec - MV deceleration time 169 msec - MV A-wave Vmax 0.9 m/sec - MV E:A ratio 0.7 ratio - LV septal e' Vmax 0.09 m/sec - LV lateral e' Vmax 0.06 m/sec - LV E:e' septal ratio 7.78 ratio - LV E:e' lateral ratio 11.67 ratio - Name Value Normal Range AV Vmax 1.2 m/sec - AV VTI 20.6 cm - AV peak gradient 5 mmHg - AV mean gradient 3 mmHg - LVOT Vmax 0.9 m/sec - LVOT VTI 16 cm - LVOT peak gradient 3 mmHg - LVOT mean gradient 1 mmHg - Name Value Normal Range IVC diameter 1.5 cm - Name Value Normal Range PV Vmax 0.76 m/sec - PV peak gradient 2 mmHg -
[2018-03-16] MEDS: NS 0.9% 1000 ML* 1,000 ML IV SCH (16:20)
[2018-03-16] MEDS: chlordiazePOXIDE CAP* 25 MG PO PRN ×2 (16:53→23:40)
[2018-03-16] MEDS: traZODone TAB* 50 MG TAB PO SCH (20:30)
[2018-03-16] MEDS: Atorvastatin* 10 MG TAB PO SCH (20:31)
[2018-03-17] MEDS: chlordiazePOXIDE CAP* 25 MG PO PRN ×3 (03:46→23:39)
[2018-03-17] MEDS: NS 0.9% 1000 ML* 1,000 ML IV SCH (06:10)
[2018-03-17 06:14] LABS: EGFR Non-African American 225.9 (>60)
[2018-03-17] MEDS: chlordiazePOXIDE CAP* 25 MG PO SCH ×3 (08:59→19:35)
[2018-03-17] MEDS: Multivitamins/Minerals TAB PO SCH (08:59)
[2018-03-17] MEDS: Omeprazole CAP* 20 MG PO SCH (08:59)
[2018-03-17] MEDS: Lisinopril TAB* 5 MG PO SCH (08:59)
[2018-03-17] MEDS: Thiamine TAB* 100 MG TAB PO SCH (09:00)
[2018-03-17] MEDS: oxyCODONE SR TAB(*) 15 MG TAB.SR PO SCH ×2 (09:00→19:36)
[2018-03-17] MEDS: Folic Acid TAB* 1 MG PO SCH (09:00)
[2018-03-17] MEDS: Potassium Chlor TAB* 10 MEQ TAB.ER PO SCH ×2 (14:23→19:38)
[2018-03-17] MEDS: traZODone TAB* 50 MG TAB PO SCH (19:36)
[2018-03-17] MEDS: Atorvastatin* 10 MG TAB PO SCH (19:36)
--- NOTE | 2018-03-18 00:27 | PN ---
Progress Note - Progress Note Date of Service: 03/18/18 Note: Patient ripped out IV, threatening to leave AMA. ON my arrival, patient calm. at bedside. Now agreeing to stay.
[2018-03-18] MEDS: chlordiazePOXIDE CAP* 25 MG PO PRN ×2 (02:02→05:37)
[2018-03-18] MEDS ORDERED: Acetaminophen TAB* 325 MG PO PRN (02:28)
[2018-03-18] MEDS: Haloperidol INJ IV/IM* 5 MG/ML AMP IV SLOW PU PRN (02:32)
[2018-03-18] MEDS ORDERED: LORazepam TAB(*) 1 MG PO SCH (03:00)
[2018-03-18] MEDS: Omeprazole CAP* 20 MG PO SCH (05:36)
[2018-03-18] MEDS: chlordiazePOXIDE CAP* 25 MG PO SCH ×3 (08:42→19:34)
[2018-03-18] MEDS: Potassium Chlor TAB* 10 MEQ TAB.ER PO SCH ×3 (08:42→20:46)
[2018-03-18] MEDS: Lisinopril TAB* 5 MG PO SCH (08:42)
[2018-03-18] MEDS: Multivitamins/Minerals TAB PO SCH (08:42)
[2018-03-18] MEDS: Folic Acid TAB* 1 MG PO SCH (08:42)
[2018-03-18] MEDS: Thiamine TAB* 100 MG TAB PO SCH (08:42)
[2018-03-18] MEDS: oxyCODONE SR TAB(*) 15 MG TAB.SR PO SCH ×2 (08:42→19:34)
[2018-03-18] MEDS ORDERED: Nicotine Inhaler* 10 MG AMP INH PRN (12:53)
[2018-03-18] MEDS ORDERED: Mouth Piece, Nicotine* 1 EACH CARTRIDGE INH PRN (12:53)
--- NOTE | 2018-03-18 14:07 | PN ---
Subjective Date of Service: 03/18/18 Interval History: Patient sleeping deeply. at bedside, was with him during lunch. He was oriented during lunch, spoke in a very soft voice. Objective Active Medications: Acetaminophen (Tylenol Tab*) 650 mg PO Q4H PRN PRN Reason: PAIN Atorvastatin Calcium (Lipitor*) 10 mg PO BEDTIME [facility] Last Admin: 03/17/18 19:36 Dose: 10 mg Chlordiazepoxide (Librium Cap*) 25 mg PO Q2H PRN PRN Reason: ANXIETY Last Admin: 03/18/18 05:37 Dose: 25 mg Chlordiazepoxide (Librium Cap*) 25 mg PO TID [facility] Last Admin: 03/18/18 08:42 Dose: 25 mg Device (Nicotine Mouth Piece*) 1 each INH .USE WITH NICOTROL PRN PRN Reason: CRAVING Last Admin: 03/18/18 13:03 Dose: 1 each Folic Acid (Folvite Tab*) 1 mg PO DAILY [facility] Last Admin: 03/18/18 08:42 Dose: 1 mg Haloperidol Lactate (Haldol Inj Iv/Im*) 5 mg IV SLOW PU Q6H PRN PRN Reason: AGITATION Last Admin: 03/18/18 02:32 Dose: 5 mg Lisinopril (Prinivil Tab*) 5 mg PO QAM [facility] Last Admin: 03/18/18 08:42 Dose: 5 mg Lorazepam (Ativan Tab(*)) 0 - 6 mg PO .PER [facility] PROTOCOL [facility]; Protocol Multivitamins/Minerals (Theragran/Minerals Tab*) 1 tab PO DAILY [facility] Last Admin: 03/18/18 08:42 Dose: 1 tab Nicotine (Nicotine Inhaler*) 10 mg INH Q2H PRN PRN Reason: CRAVING Last Admin: 03/18/18 13:03 Dose: 10 mg Omeprazole (Prilosec Cap*) 40 mg PO QAM@0730 [facility] Last Admin: 03/18/18 05:36 Dose: 40 mg Oxycodone HCl (Oxycontin(*)) 15 mg PO BID [facility] Last Admin: 03/18/18 08:42 Dose: 15 mg Potassium Chloride (Klor Con Er Tab*) 20 meq PO TID [facility] Last Admin: 03/18/18 08:42 Dose: 20 meq Thiamine HCl (Vitamin B-1 Tab*) 100 mg PO DAILY [facility] Last Admin: 03/18/18 08:42 Dose: 100 mg Trazodone HCl (Desyrel Tab*) 50 mg PO BEDTIME [facility] Last Admin: 03/17/18 19:36 Dose: 50 mg Vital Signs - 8 hr 03/18/18 03/18/18 03/18/18 08:00 08:25 08:42 Temperature Pulse Rate 78 Respiratory 18 18 18 Rate Blood Pressure 121/77 (mmHg) O2 Sat by Pulse 97 Oximetry 03/18/18 03/18/18 03/18/18 10:00 10:26 10:31 Temperature 97.5 F Pulse Rate 75 Respiratory 20 20 Rate Blood Pressure 97/64 111/72 (mmHg) O2 Sat by Pulse 96 Oximetry 03/18/18 03/18/18 03/18/18 11:14 12:00 12:06 Temperature 97.8 F Pulse Rate 76 Respiratory 20 19 19 Rate Blood Pressure 112/69 (mmHg) O2 Sat by Pulse 99 Oximetry Oxygen Devices in Use Now: None Appearance: On his R side in bed. Sleeping soundly, looks comfortable. Respiratory: Symmetrical Chest Expansion and Respiratory Effort, Clear to Auscultation, Clear to Percussion Cardiovascular: NL Sounds; No Murmurs; No JVD, RRR, No Edema, - Extremities: No Edema, No Clubbing, Cyanosis, - Skin: No Rash or Ulcers, No Nodules or Sclerosis, - Neurological: - - sleeping deeply. no tremor. Result Diagrams: 03/15/18 21:26 03/17/18 05:19 Additional Lab and Data: Lab Results 03/15/18 Range/Units 21:26 Sodium 132 L (135-145) mmol/L Potassium 4.0 (3.5-5.0) mmol/L Chloride 99 L (101-111) mmol/L Carbon Dioxide 22 (22-32) mmol/L Anion Gap 11 (2-11) mmol/L BUN 7 (6-24) mg/dL Creatinine 0.71 (0.67-1.17) mg/dL Est GFR ( Amer) 141.0 (>60) Est GFR (Non-Af Amer) 116.5 (>60) BUN/Creatinine Ratio 9.9 (8-20) Glucose 115 H (70-100) mg/dL Calcium 8.8 (8.6-10.3) mg/dL Assess/Plan/Problems-Billing Assessment: - Patient Problems (1) Alcoholism Current Visit: Yes Status: Acute Code(s): F10.20 - ALCOHOL DEPENDENCE, UNCOMPLICATED SNOMED Code(s): 8730528 Comment: With alcoholic liver disease, early withdrawal sx's, 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 PTN and scheduled chlordiazepoxide ordered. Flagrant DT's with aggressive behavior night on 03/17-03/18, received IM hloperidol 5 mg. Continue scheduled chlordiazepoxide. CBC, CMP 03/19. (2) Hemochromatosis Current Visit: Yes Status: Acute Code(s): E83.119 - HEMOCHROMATOSIS, UNSPECIFIED SNOMED Code(s): 521720977 Comment: Dx noted. (3) CAD (coronary artery disease) Current Visit: Yes Status: Acute Code(s): I25.10 - ATHSCL HEART DISEASE OF [place] CORONARY ARTERY W/O ANG PCTRS SNOMED Code(s): 28661288 Comment: Continue statin. Pt states he can't take ASA because it makes his stomach bleed and he wasn't offered an alternative medication. (4) HTN (hypertension) Current Visit: Yes Status: Acute Code(s): I10 - ESSENTIAL (PRIMARY) HYPERTENSION SNOMED Code(s): 45563208 Comment: Continue lisinopril. (5) Gait disorder Current Visit: Yes Status: Acute Code(s): R26.9 - UNSPECIFIED ABNORMALITIES OF GAIT AND MOBILITY SNOMED Code(s): 14299397 Comment: Continue PT. Re-evluate 03/17.
[2018-03-18] MEDS: traZODone TAB* 50 MG TAB PO SCH (19:34)
[2018-03-18] MEDS: Atorvastatin* 10 MG TAB PO SCH (20:45)
[2018-03-19] MEDS: chlordiazePOXIDE CAP* 25 MG PO SCH (00:09)
[2018-03-19] MEDS: traZODone TAB* 50 MG TAB PO SCH ×2 (00:09→20:47)
[2018-03-19] MEDS: Haloperidol INJ IV/IM* 5 MG/ML AMP IV SLOW PU PRN (01:18)
[2018-03-19] MEDS: Potassium Chlor TAB* 10 MEQ TAB.ER PO SCH ×2 (08:27→14:00)
[2018-03-19] MEDS: Lisinopril TAB* 5 MG PO SCH (08:27)
[2018-03-19] MEDS: oxyCODONE SR TAB(*) 15 MG TAB.SR PO SCH ×2 (08:27→20:46)
[2018-03-19] MEDS: Omeprazole CAP* 20 MG PO SCH (08:27)
[2018-03-19] MEDS: Multivitamins/Minerals TAB PO SCH (08:27)
[2018-03-19] MEDS: Thiamine TAB* 100 MG TAB PO SCH (08:27)
[2018-03-19] MEDS: Folic Acid TAB* 1 MG PO SCH (08:27)
[2018-03-19 15:35] LABS: EGFR Non-African American 207.8 (>60)
[2018-03-19 15:35] LABS: INR 0.95 (0.77-1.02)
[2018-03-19 16:12] LABS: Hematocrit 40 % (42-52); Hemoglobin 13.8 g/dl (14.0-18.0); Mean Corpuscular HGB Conc 34 g/dl (31-36); Mean Corpuscular Hemoglobin 36 pg (27-31); Mean Corpuscular Volume 106 fL (80-94); Red Cell Distribution Width 15 % (10.5-15); White Blood Count 3.4 10^3/ul (3.5-10.8)
[2018-03-19] MEDS ORDERED: Magnesium Sulfate IV* 3 GM in NS 0.9% 100 ML* 100 ML IVPB ONE (16:30)
[2018-03-19] MEDS ORDERED: oxyCODONE TAB* 5 MG TAB PO ONE (16:32)
--- NOTE | 2018-03-19 16:40 | PN ---
Subjective Date of Service: 03/19/18 Interval History: Patient very sedated this AM. Has a hard time forming words due to dry mouth. Patient only states that he does not want any more pills in morning and will not answer more questions. Patient more alert in PM when present and denies CP, SOB, N/V, abdominal pain, F/C, dysuria, dizziness, or other pain. Patient offers no other complaint except for a desire to stand up. Patient is still perseverative. Family History: Unchanged from Admission Social History: Unchanged from Admission Past Medical History: Unchanged from Admission Objective Active Medications: Acetaminophen (Tylenol Tab*) 650 mg PO Q4H PRN PRN Reason: PAIN Atorvastatin Calcium (Lipitor*) 10 mg PO BEDTIME [facility] Last Admin: 03/18/18 20:45 Dose: Not Given Device (Nicotine Mouth Piece*) 1 each INH .USE WITH NICOTROL PRN PRN Reason: CRAVING Last Admin: 03/18/18 13:03 Dose: 1 each Folic Acid (Folvite Tab*) 1 mg PO DAILY [facility] Last Admin: 03/19/18 08:27 Dose: Not Given Haloperidol Lactate (Haldol Inj Iv/Im*) 5 mg IV SLOW PU Q6H PRN PRN Reason: AGITATION Last Admin: 03/19/18 01:18 Dose: 5 mg Magnesium Sulfate 3 gm/ Sodium (Chloride) 106 mls @ 53 mls/hr IVPB ONCE ONE Stop: 03/19/18 18:29 Lisinopril (Prinivil Tab*) 5 mg PO QAM [facility] Last Admin: 03/19/18 08:27 Dose: Not Given Lorazepam (Ativan Tab(*)) 0 - 6 mg PO .PER [place] PROTOCOL [facility]; Protocol Multivitamins/Minerals (Theragran/Minerals Tab*) 1 tab PO DAILY [facility] Last Admin: 03/19/18 08:27 Dose: Not Given Nicotine (Nicotine Inhaler*) 10 mg INH Q2H PRN PRN Reason: CRAVING Last Admin: 03/18/18 13:03 Dose: 10 mg Omeprazole (Prilosec Cap*) 40 mg PO QAM@0730 [facility] Last Admin: 03/19/18 08:27 Dose: Not Given Oxycodone HCl (Oxycontin(*)) 15 mg PO BID [facility] Last Admin: 10/04/18 08:27 Dose: Not Given Potassium Chloride (Klor Con Er Tab*) 20 meq PO TID [facility] Last Admin: 03/19/18 14:00 Dose: Not Given Thiamine HCl (Vitamin B-1 Tab*) 100 mg PO DAILY [facility] Last Admin: 03/19/18 08:27 Dose: Not Given Trazodone HCl (Desyrel Tab*) 50 mg PO BEDTIME [facility] Last Admin: 03/19/18 00:09 Dose: Not Given Vital Signs - 8 hr 03/19/18 03/19/18 03/19/18 09:06 10:03 12:03 Temperature 97.7 F 97.7 F Pulse Rate 84 80 Respiratory 14 20 22 Rate Blood Pressure 140/84 134/74 (mmHg) O2 Sat by Pulse 97 99 Oximetry 03/19/18 15:36 Temperature 97.6 F Pulse Rate 86 Respiratory 23 Rate Blood Pressure 115/85 (mmHg) O2 Sat by Pulse 98 Oximetry Oxygen Devices in Use Now: None Appearance: Patient is a 52yo female who appears stated age and is sitting in the bed in [facility]. Eyes: No Scleral Icterus, PERRLA Ears/Nose/Mouth/Throat: NL Teeth, Lips, Gums, Clear Oropharnyx, Mucous Membranes Moist Neck: NL Appearance and Movements; NL JVP, Trachea Midline Respiratory: Symmetrical Chest Expansion and Respiratory Effort, Clear to Auscultation Cardiovascular: NL Sounds; No Murmurs; No JVD, RRR, No Edema Abdominal: NL Sounds; No Tenderness; No Distention, No Hepatosplenomegaly Lymphatic: No Cervical Adenopathy Extremities: No Edema, No Clubbing, Cyanosis Skin: No Rash or Ulcers, No Nodules or Sclerosis Neurological: - - Sedated but responsive to questioning. Unable to do full Neurological Exam. Result Diagrams: 03/19/18 15:07 03/19/18 15:07 Additional Lab and Data: Lab Results Assess/Plan/Problems-Billing Assessment: Patient is a 52yo female with a PMH for alcohol abuse, Hemochromatosis, and is presenting with syncope while intoxicated and is recovering slowly from alcohol withdrawal. 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 - [facility] protocol - Haldol PRN for agitation (2) CAD (coronary artery disease) Current Visit: Yes Status: Acute Code(s): I25.10 - ATHSCL HEART DISEASE OF [place] CORONARY ARTERY W/O ANG PCTRS SNOMED Code(s): 92507921 Comment: - Continue statin. - GI bleeding associated with aspirin. (3) Gait disorder Current Visit: Yes Status: Acute Code(s): R26.9 - UNSPECIFIED ABNORMALITIES OF GAIT AND MOBILITY SNOMED Code(s): 35307620 Comment: - Possibly due to alcoholic peripheral neuropathy - Will need re-assessment when not detoxing - B12 pending. (4) HTN (hypertension) Current Visit: Yes Status: Acute Code(s): I10 - ESSENTIAL (PRIMARY) HYPERTENSION SNOMED Code(s): 29777092 Comment: - Continue lisinopril. - Normotensive (5) Hemochromatosis Current Visit: Yes Status: Acute Code(s): E83.119 - HEMOCHROMATOSIS, UNSPECIFIED SNOMED Code(s): 680062625 Comment: - Ferritin Pending, Predisposes synergistically to cirrhosis with alcohol abuse Status and Disposition: Inpatient, Discharge to [facility] when available.
[2018-03-19 19:03] LABS: ABS Basophils 0 10^3/ul (0-0.2); ABS Eosinophils 0.1 10^3/ul (0-0.6); ABS Lymphocytes 0.8 10^3/ul (1.0-4.8); ABS Monocytes 0.4 10^3/ul (0-0.8); ABS Neutrophils 2.1 10^3/ul (1.5-7.7); ABS Nucleated RBC 0 10^3/ul; Eosinophil % 1.9 % (0-6); Lymphocyte % 23.4 % (25-47); Mean Platelet Volume 9.2 um3 (7.4-10.4); Nucleated Red Blood Cells % 0.2; Platelet Count 130 10^3/ul (150-450)
[2018-03-19] MEDS: Potassium Chlor TAB* 20 MEQ TAB.ER PO SCH (20:46)
[2018-03-19] MEDS: Atorvastatin* 10 MG TAB PO SCH (20:47)
[2018-03-20 07:22] LABS: Hematocrit 40 % (42-52); Hemoglobin 13.5 g/dl (14.0-18.0); Mean Corpuscular HGB Conc 34 g/dl (31-36); Mean Corpuscular Hemoglobin 37 pg (27-31); Mean Corpuscular Volume 108 fL (80-94); Mean Platelet Volume 9.4 um3 (7.4-10.4); Platelet Count 101 10^3/ul (150-450); Red Blood Count 3.66 10^6/ul (4.00-5.40); Red Cell Distribution Width 15 % (10.5-15); White Blood Count 3.9 10^3/ul (3.5-10.8)
[2018-03-20 07:35] LABS: EGFR Non-African American 202.4 (>60)
[2018-03-20] MEDS: Lisinopril TAB* 5 MG PO SCH (07:35)
[2018-03-20] MEDS: Potassium Chlor TAB* 20 MEQ TAB.ER PO SCH ×3 (07:35→22:03)
[2018-03-20] MEDS: Multivitamins/Minerals TAB PO SCH (07:35)
[2018-03-20] MEDS: Omeprazole CAP* 20 MG PO SCH (07:35)
[2018-03-20] MEDS: oxyCODONE SR TAB(*) 15 MG TAB.SR PO SCH ×2 (07:35→19:39)
[2018-03-20] MEDS: Folic Acid TAB* 1 MG PO SCH (07:36)
[2018-03-20] MEDS: Thiamine TAB* 100 MG TAB PO SCH (07:36)
[2018-03-20 07:52] LABS: ABS Basophils 0 10^3/ul (0-0.2); ABS Eosinophils 0.1 10^3/ul (0-0.6); ABS Lymphocytes 0.9 10^3/ul (1.0-4.8); ABS Monocytes 0.6 10^3/ul (0-0.8); ABS Neutrophils 2.3 10^3/ul (1.5-7.7); ABS Nucleated RBC 0 10^3/ul; Eosinophil % 1.8 % (0-6); Lymphocyte % 23.4 % (25-47); Nucleated Red Blood Cells % 0.2
[2018-03-20] MEDS ORDERED: LORazepam TAB(*) 0.5 MG PO PRN (13:47)
--- NOTE | 2018-03-20 15:57 | PN ---
Subjective Date of Service: 03/20/18 Interval History: Patient seen and examined. Appears to be mumbling. When asked if he is having any pain or discomfort, he states "I'll give you some pain" and appears disinterested in being examined or answering questions. Per notes, patient needed safety monitor last nite for agitation. Plan was for patient to go to [facility] for rehab, however he will not be accepted until Friday. Family History: Unchanged from Admission Social History: Unchanged from Admission Past Medical History: Unchanged from Admission Objective Active Medications: Acetaminophen (Tylenol Tab*) 650 mg PO Q4H PRN PRN Reason: PAIN Atorvastatin Calcium (Lipitor*) 10 mg PO BEDTIME [facility] Last Admin: 03/19/18 20:47 Dose: 10 mg Device (Nicotine Mouth Piece*) 1 each INH .USE WITH NICOTROL PRN PRN Reason: CRAVING Last Admin: 03/18/18 13:03 Dose: 1 each Folic Acid (Folvite Tab*) 1 mg PO DAILY [facility] Last Admin: 03/20/18 07:36 Dose: 1 mg Lisinopril (Prinivil Tab*) 5 mg PO QAM [facility] Last Admin: 03/20/18 07:35 Dose: 5 mg Lorazepam (Ativan Tab(*)) 0.5 mg PO Q6H PRN PRN Reason: agitation or anxiety Multivitamins/Minerals (Theragran/Minerals Tab*) 1 tab PO DAILY [facility] Last Admin: 03/20/18 07:35 Dose: 1 tab Nicotine (Nicotine Inhaler*) 10 mg INH Q2H PRN PRN Reason: CRAVING Last Admin: 03/18/18 13:03 Dose: 10 mg Omeprazole (Prilosec Cap*) 40 mg PO QAM@0730 [facility] Last Admin: 03/20/18 07:35 Dose: 40 mg Oxycodone HCl (Oxycontin(*)) 15 mg PO BID [facility] Last Admin: 03/20/18 07:35 Dose: 15 mg Potassium Chloride (Klor Con Er Tab*) 20 meq PO TID [facility] Last Admin: 03/20/18 13:18 Dose: 20 meq Thiamine HCl (Vitamin B-1 Tab*) 100 mg PO DAILY [facility] Last Admin: 03/20/18 07:36 Dose: 100 mg Trazodone HCl (Desyrel Tab*) 50 mg PO BEDTIME [facility] Last Admin: 03/19/18 20:47 Dose: 50 mg Vital Signs - 8 hr 03/20/18 03/20/18 07:55 11:42 Temperature 98.2 F Pulse Rate 102 Respiratory 20 15 Rate Blood Pressure 118/81 (mmHg) O2 Sat by Pulse 96 Oximetry Oxygen Devices in Use Now: None Appearance: disheveled, NAD Eyes: No Scleral Icterus Ears/Nose/Mouth/Throat: Mucous Membranes Moist Neck: NL Appearance and Movements; NL JVP Respiratory: Symmetrical Chest Expansion and Respiratory Effort, Clear to Auscultation Cardiovascular: NL Sounds; No Murmurs; No JVD, RRR, No Edema Extremities: No Edema Neurological: - - difficult to communicqate with, appears confused at times Nutrition: Taking PO's Result Diagrams: 03/20/18 07:09 03/20/18 07:10 Additional Lab and Data: Lab Results Assess/Plan/Problems-Billing Assessment: Patient is a 52yo female with a PMH for alcohol abuse, Hemochromatosis, and is presenting with syncope while intoxicated, acute alcohol withdrawal, gait dysfunction and encephalopathic changes. - Patient Problems (1) Alcoholic encephalopathy Code(s): G31.2 - DEGENERATION OF NERVOUS SYSTEM DUE TO ALCOHOL; F10.20 - ALCOHOL DEPENDENCE, UNCOMPLICATED SNOMED Code(s): 145971851 Comment: - Likely due to acute alcohol withdrawal - WAM scores low - Continue ativan for anxiety and geodon for acute agitation (2) Alcoholism Code(s): F10.20 - ALCOHOL DEPENDENCE, UNCOMPLICATED SNOMED Code(s): 8131732 Comment: - Advise complete abstinence - Librium as needed - Delerium tremens seem to have passed but should monitor closely (3) CAD (coronary artery disease) Code(s): I25.10 - ATHSCL HEART DISEASE OF [place] CORONARY ARTERY W/O ANG PCTRS SNOMED Code(s): 17867947 Comment: - Continue statin. - GI bleeding associated with aspirin. (4) Gait disorder Code(s): R26.9 - UNSPECIFIED ABNORMALITIES OF GAIT AND MOBILITY SNOMED Code(s) : 68046785 Comment: - Likley 2/2 alcoholic neuropathy and encephalopathy - PT recommends physical rehab (5) HTN (hypertension) Code(s): I10 - ESSENTIAL (PRIMARY) HYPERTENSION SNOMED Code(s): 04679365 Comment: - Continue lisinopril, stable (6) Hemochromatosis Code(s): E83.119 - HEMOCHROMATOSIS, UNSPECIFIED SNOMED Code(s): 511074768 Comment: - stable Status and Disposition: Ready for DC to [facility], however they cannot take the patient until friday. Remain inpatient.
[2018-03-20] MEDS ORDERED: Ziprasidone IM INJ* 20 MG/ML VIAL IM PRN ×2 (16:01→16:04)
[2018-03-20] MEDS: Atorvastatin* 10 MG TAB PO SCH (19:39)
[2018-03-20] MEDS: traZODone TAB* 50 MG TAB PO SCH (19:40)
--- NOTE | 2018-03-20 22:39 | PN ---
Hospitalist Progress Note Date of Service: 03/20/18 Per NS staff Pt has not urinated in an unknown amount of time. He has 400 ml in his bladder per bladder scan. Acute urinary retention. Will place urinary catheter tonight with plans to remove in the morning for a voiding trial. If he is unable to urinate after the voiding trial he should have the urinary catheter replaced and be seen in follow -up by urology outpatient.
[2018-03-20 23:21] LABS: Urine Red Blood Cell Absent (Absent); Urine White Blood Cell 1+(6-10/hpf) (Absent)
[2018-03-20 23:29] LABS: Urine Appearance Cloudy; Urine Blood Negative (Negative); Urine Color Amber; Urine Ketones 2+ (Negative); Urine Protein 1+(30 mg/dL) (Negative); Urine Urobilinogen Positive (Negative)
[2018-03-21] MEDS ORDERED: D5W 1/2 NS KCl 20 Meq 1000 ML* 1,000 ML IV SCH (08:00)
[2018-03-21] MEDS: Multivitamins/Minerals TAB PO SCH (08:03)
[2018-03-21] MEDS: Thiamine TAB* 100 MG TAB PO SCH (08:03)
[2018-03-21] MEDS: oxyCODONE SR TAB(*) 15 MG TAB.SR PO SCH (08:04)
[2018-03-21] MEDS: Lisinopril TAB* 5 MG PO SCH (08:04)
[2018-03-21] MEDS: Folic Acid TAB* 1 MG PO SCH (08:05)
[2018-03-21] MEDS ORDERED: Magnesium Oxide TAB* 400 MG PO SCH (09:00)
[2018-03-21] MEDS: Omeprazole CAP* 20 MG PO SCH (09:18)
--- NOTE | 2018-03-21 12:10 | PN ---
Subjective Date of Service: 03/21/18 Interval History: Patient lethargic, lying in bed , respirations easy and even, responds to tactile and painful stimuli, not following commands, at the bedside reports that the patient only takes oxycodone at night and not during the day. Patient is mumbling incomprehensible words. reports that this is not the patients baseline, states that he is usually yelling and loud. 1830- patient remain lethargic , but now will opens eyes to verbal stimuli, following some simple commands. will get CT head and Labs Family History: Unchanged from Admission Social History: Unchanged from Admission Past Medical History: Unchanged from Admission Objective Active Medications: Acetaminophen (Tylenol Tab*) 650 mg PO Q4H PRN PRN Reason: PAIN Atorvastatin Calcium (Lipitor*) 10 mg PO BEDTIME [facility] Last Admin: 03/20/18 19:39 Dose: 10 mg Device (Nicotine Mouth Piece*) 1 each INH .USE WITH NICOTROL PRN PRN Reason: CRAVING Last Admin: 03/18/18 13:03 Dose: 1 each Folic Acid (Folvite Tab*) 1 mg PO DAILY [facility] Last Admin: 03/21/18 08:05 Dose: 1 mg Lisinopril (Prinivil Tab*) 5 mg PO QAM [facility] Last Admin: 03/21/18 08:04 Dose: 5 mg Lorazepam (Ativan Tab(*)) 0.5 mg PO Q6H PRN PRN Reason: agitation or anxiety Magnesium Oxide (Magox 400 Tab*) 400 mg PO DAILY [facility] Last Admin: 03/21/18 09:20 Dose: 400 mg Multivitamins/Minerals (Theragran/Minerals Tab*) 1 tab PO DAILY [facility] Last Admin: 03/21/18 08:03 Dose: 1 tab Nicotine (Nicotine Inhaler*) 10 mg INH Q2H PRN PRN Reason: CRAVING Last Admin: 03/18/18 13:03 Dose: 10 mg Omeprazole (Prilosec Cap*) 40 mg PO QAM@0730 [facility] Last Admin: 03/21/18 09:18 Dose: 40 mg Oxycodone HCl (Oxycontin(*)) 15 mg PO BID [facility] Last Admin: 03/21/18 08:04 Dose: 15 mg Thiamine HCl (Vitamin B-1 Tab*) 100 mg PO DAILY [facility] Last Admin: 03/21/18 08:03 Dose: 100 mg Trazodone HCl (Desyrel Tab*) 50 mg PO BEDTIME [facility] Last Admin: 03/20/18 19:40 Dose: 50 mg Ziprasidone (Geodon Im Inj*) 20 mg IM BEDTIME PRN PRN Reason: AGITATION Vital Signs - 8 hr 03/21/18 08:04 Respiratory 20 Rate Oxygen Devices in Use Now: None Appearance: lethargic, responding to tactile stimuli Eyes: No Scleral Icterus Ears/Nose/Mouth/Throat: NL Teeth, Lips, Gums, Mucous Membranes Moist Neck: NL Appearance and Movements; NL JVP, Trachea Midline Respiratory: Symmetrical Chest Expansion and Respiratory Effort, Clear to Auscultation, - - diminished t/o bilat Cardiovascular: NL Sounds; No Murmurs; No JVD, No Edema Abdominal: NL Sounds; No Tenderness; No Distention Extremities: No Edema, No Clubbing, Cyanosis Skin: No Rash or Ulcers Neurological: - - lethargic, mumbles a few words, Nutrition: Taking PO's Result Diagrams: 03/21/18 21:00 03/22/18 06:42 Additional Lab and Data: Lab Results Assess/Plan/Problems-Billing Assessment: Patient is a 52yo female with a PMH for alcohol abuse, Hemochromatosis, and is presenting with syncope while intoxicated, acute alcohol withdrawal, gait dysfunction and encephalopathic changes. - Patient Problems (1) Alcoholic encephalopathy Current Visit: Yes Status: Acute Code(s): G31.2 - DEGENERATION OF NERVOUS SYSTEM DUE TO ALCOHOL; F10.20 - ALCOHOL DEPENDENCE, UNCOMPLICATED SNOMED Code( s): 431934018 Comment: - Likely due to acute alcohol withdrawal - WAM scores low - Continue ativan for anxiety and geodon for acute severe agitation - patient is lethargic today - suspect this is related to oxycodone per patient only take this in the evening. will stop BID dosing and change to PRN with lower dose of 5 mg. - if the patient mental status does not improve by tomorrow will ask neurology to see- suspect this could also be related to wernicke's encephalopathy vs other underlying neurologic event. - will also check a ammonia level today- was WNL on admission (2) Alcoholism Current Visit: Yes Status: Acute Code(s): F10.20 - ALCOHOL DEPENDENCE, UNCOMPLICATED SNOMED Code(s): 9880449 Comment: - Advise complete abstinence - will continue to monitor for withdrawal symptoms with WAM (3) CAD (coronary artery disease) Current Visit: Yes Status: Acute Code(s): I25.10 - ATHSCL HEART DISEASE OF [place] CORONARY ARTERY W/O ANG PCTRS SNOMED Code(s): 81827745 Comment: - Continue statin. - GI bleeding associated with aspirin. 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 - PT recommends physical rehab (5) HTN (hypertension) Current Visit: Yes Status: Acute Code(s): I10 - ESSENTIAL (PRIMARY) HYPERTENSION SNOMED Code(s): 20206820 Comment: - Continue lisinopril, stable (6) Hemochromatosis Current Visit: Yes Status: Acute Code(s): E83.119 - HEMOCHROMATOSIS, UNSPECIFIED SNOMED Code(s): 893802993 Comment: - stable (7) Full code status Current Visit: Yes Status: Acute Code(s): Z78.9 - OTHER SPECIFIED HEALTH STATUS SNOMED Code(s): 042340375 Status and Disposition: Ready for DC to [facility], however they cannot take the patient until friday. Remain inpatient.
[2018-03-21] MEDS ORDERED: oxyCODONE TAB* 5 MG TAB PO PRN (12:31)
[2018-03-21] MEDS ORDERED: NS 0.9% 500 ML* 500 ML IV ONE (17:45)
[2018-03-21] MEDS ORDERED: NS 0.9% 1000 ML* 1,000 ML IV SCH (18:00)
--- NOTE | 2018-03-21 20:07 | RAD ---
EXAM: CT Head Without Intravenous Contrast CLINICAL HISTORY: 52 years old, male; Signs and symptoms; Other: [employer] TECHNIQUE: Axial computed tomography images of the head/brain without intravenous contrast. All CT scans at this facility use at least one of these dose optimization techniques: automated exposure control; mA and/or kV adjustment per patient size (includes targeted exams where dose is matched to clinical indication); or iterative reconstruction. COMPARISON: BRAIN WO CT BRAIN WO 03/15/2018 10:34 PM FINDINGS: Brain: No intracranial hemorrhage or extra-axial fluid collection. No evidence of mass effect or midline shift. Mclean-white matter differentiation is normal. Ventricles: Mild prominence of the ventricles and sulci, most likely attributed to parenchymal volume loss. Bones/joints: Unremarkable. No acute fracture. Soft tissues: Unremarkable. Sinuses: Unremarkable as visualized. No acute sinusitis. Mastoid air cells: Unremarkable as visualized. No mastoid effusion. IMPRESSION: No acute intracranial pathology. To contact [facility] with a general question: [facility] - [phone] For direct physician to physician contact: Physician Hotline - [phone] [facility] ([facility] Facility ID #[id number])
[2018-03-21] MEDS ORDERED: Naloxone* 0.4 MG/ML 1 ML VIAL IV PUSH ONE (20:47)
[2018-03-21] MEDS: Atorvastatin* 10 MG TAB PO SCH ×2 (20:48→23:50)
[2018-03-21] MEDS ORDERED: Naloxone* 0.4 MG/ML 1 ML VIAL ONE (20:54)
[2018-03-21 21:21] LABS: ABS Basophils 0 10^3/ul (0-0.2); ABS Eosinophils 0.1 10^3/ul (0-0.6); ABS Lymphocytes 1.1 10^3/ul (1.0-4.8); ABS Monocytes 0.8 10^3/ul (0-0.8); ABS Neutrophils 1.5 10^3/ul (1.5-7.7); ABS Nucleated RBC 0 10^3/ul; Eosinophil % 2.6 % (0-6); Hematocrit 42 % (42-52); Hemoglobin 14.1 g/dl (14.0-18.0); Lymphocyte % 30.6 % (25-47); Mean Corpuscular HGB Conc 34 g/dl (31-36); Mean Corpuscular Hemoglobin 37 pg (27-31); Mean Corpuscular Volume 108 fL (80-94); Mean Platelet Volume 9.2 um3 (7.4-10.4); Nucleated Red Blood Cells % 0.1; Platelet Count 120 10^3/ul (150-450); Red Blood Count 3.88 10^6/ul (4.00-5.40); Red Cell Distribution Width 15 % (10.5-15); White Blood Count 3.4 10^3/ul (3.5-10.8)
[2018-03-21 21:36] LABS: EGFR Non-African American 144.3 (>60)
[2018-03-22 07:15] LABS: EGFR Non-African American 166.9 (>60)
[2018-03-22] MEDS ORDERED: Magnesium Sulfate IV* 3 GM in NS 0.9% 100 ML* 100 ML IVPB ONE (08:30)
--- NOTE | 2018-03-22 08:41 | PN ---
Subjective Date of Service: 03/22/18 Interval History: Patient more awake today. able to follow commands and participate in conversation. Patient denies chest pain or shortness of breath. Denies abd pain n/v/d. speech is mumbled and slight slurred. patient reports that his speech feels slurred to him . alert and oriented x3 Family History: Unchanged from Admission Social History: Unchanged from Admission Past Medical History: Unchanged from Admission Objective Active Medications: Acetaminophen (Tylenol Tab*) 650 mg PO Q4H PRN PRN Reason: PAIN Atorvastatin Calcium (Lipitor*) 10 mg PO BEDTIME [facility] Last Admin: 03/21/18 23:50 Dose: 10 mg Device (Nicotine Mouth Piece*) 1 each INH .USE WITH NICOTROL PRN PRN Reason: CRAVING Last Admin: 03/18/18 13:03 Dose: 1 each Folic Acid (Folvite Tab*) 1 mg PO DAILY [facility] Last Admin: 03/21/18 08:05 Dose: 1 mg Sodium Chloride (Ns 0.9% 1000 Ml*) 1,000 mls @ 75 mls/hr IV PER RATE [facility] Last Admin: 03/22/18 02:56 Dose: 75 mls/hr Magnesium Sulfate 3 gm/ Sodium (Chloride) 106 mls @ 53 mls/hr IVPB ONCE ONE Stop: 03/22/18 10:29 Lisinopril (Prinivil Tab*) 5 mg PO QAM [facility] Last Admin: 03/21/18 08:04 Dose: 5 mg Lorazepam (Ativan Tab(*)) 0.5 mg PO Q6H PRN PRN Reason: agitation or anxiety Magnesium Oxide (Magox 400 Tab*) 400 mg PO DAILY [facility] Multivitamins/Minerals (Theragran/Minerals Tab*) 1 tab PO DAILY [facility] Last Admin: 03/21/18 08:03 Dose: 1 tab Nicotine (Nicotine Inhaler*) 10 mg INH Q2H PRN PRN Reason: CRAVING Last Admin: 03/18/18 13:03 Dose: 10 mg Omeprazole (Prilosec Cap*) 40 mg PO QAM@0730 [facility] Last Admin: 03/21/18 09:18 Dose: 40 mg Thiamine HCl (Vitamin B-1 Tab*) 100 mg PO DAILY [facility] Last Admin: 03/21/18 08:03 Dose: 100 mg Ziprasidone (Geodon Im Inj*) 20 mg IM BEDTIME PRN PRN Reason: AGITATION Vital Signs - 8 hr 03/22/18 03/22/18 03:38 06:41 Temperature 98.2 F 97.8 F Pulse Rate 90 83 Respiratory 18 20 Rate Blood Pressure 128/83 139/80 (mmHg) O2 Sat by Pulse 98 99 Oximetry Oxygen Devices in Use Now: None Appearance: awake, oriented x3 , no acute distress Eyes: No Scleral Icterus Ears/Nose/Mouth/Throat: Clear Oropharnyx, Mucous Membranes Moist Neck: NL Appearance and Movements; NL JVP, Trachea Midline Respiratory: Symmetrical Chest Expansion and Respiratory Effort, Clear to Auscultation Cardiovascular: NL Sounds; No Murmurs; No JVD, No Edema Abdominal: NL Sounds; No Tenderness; No Distention Extremities: No Edema, No Clubbing, Cyanosis, - Skin: No Rash or Ulcers Neurological: Alert and Oriented x 3, - - slurred speech, lower extremity weekness noted right greater then left. Nutrition: Taking PO's Result Diagrams: 03/21/18 21:00 03/22/18 06:42 Additional Lab and Data: Lab Results Microbiology and Other Data: Microbiology 03/20/18 23:07 Urine Culture - Final Urine No Growth (<1,000 CFU/mL) Assess/Plan/Problems-Billing Assessment: Patient is a 52yo female with a PMH for alcohol abuse, Hemochromatosis, and is presenting with syncope while intoxicated, acute alcohol withdrawal, gait dysfunction and encephalopathic changes. - Patient Problems (1) Alcoholic encephalopathy Current Visit: Yes Status: Acute Code(s): G31.2 - DEGENERATION OF NERVOUS SYSTEM DUE TO ALCOHOL; F10.20 - ALCOHOL DEPENDENCE, UNCOMPLICATED SNOMED Code( s): 926775044 Comment: - Likely due to acute alcohol withdrawal - [facility] protocol stopped not scoring - Continue ativan for anxiety and geodon for acute severe agitation - patient more alert - with holding of oxycontin, able to converse and answer questions appropriately but continues to have slurred speech, that soft and mumbled as well - mental status improved today- will ask neurology to see d/t continued slurred sppech- suspect this could also be related to wernicke's encephalopathy vs other underlying neurologic event such as a stroke- ASA held d/t hx of GI bleeding in the event this was a stroke. -will get MRI tomorrow. - ammonia wnl (2) Alcoholism Current Visit: Yes Status: Acute Code(s): F10.20 - ALCOHOL DEPENDENCE, UNCOMPLICATED SNOMED Code(s): 7255009 Comment: - Advise complete abstinence (3) Hypomagnesemia Current Visit: Yes Status: Acute Code(s): E83.42 - HYPOMAGNESEMIA SNOMED Code(s): 024017009 Comment: Magnesium 1.6 today will give 3 gm of magnesium IV and repeat tomorrow magnesium level tomorrow (4) CAD (coronary artery disease) Current Visit: Yes Status: Acute Code(s): I25.10 - ATHSCL HEART DISEASE OF [place] CORONARY ARTERY W/O ANG PCTRS SNOMED Code(s): 87427843 Comment: - Continue statin. - GI bleeding associated with aspirin. 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 - PT recommends physical rehab - reports numbness in bilat lower legs for several months (6) HTN (hypertension) Current Visit: Yes Status: Acute Code(s): I10 - ESSENTIAL (PRIMARY) HYPERTENSION SNOMED Code(s): 85184224 Comment: - Continue lisinopril, stable (7) Hemochromatosis Current Visit: Yes Status: Acute Code(s): E83.119 - HEMOCHROMATOSIS, UNSPECIFIED SNOMED Code(s): 728713488 Comment: - stable (8) Full code status Current Visit: Yes Status: Acute Code(s): Z78.9 - OTHER SPECIFIED HEALTH STATUS SNOMED Code(s): 639164311 Status and Disposition: Ready for DC to [facility], however they cannot take the patient until friday. Remain inpatient.
--- NOTE | 2018-03-22 08:45 | RAD ---
Indication: Altered mental status. Hypertension. Recurrent syncope. Comparison: March 15, 2018 Technique: Upright AP 2105 hours Report: Clear lungs and pleural spaces. Negative for pneumothorax. The heart, pulmonary vasculature, and mediastinal contours are unremarkable. Unremarkable osseous structures and soft tissue contours. IMPRESSION: #. No evidence for acute intrathoracic disease. R1
[2018-03-22] MEDS: Multivitamins/Minerals TAB PO SCH (09:31)
[2018-03-22] MEDS: Thiamine TAB* 100 MG TAB PO SCH (09:31)
[2018-03-22] MEDS: Lisinopril TAB* 5 MG PO SCH (09:31)
[2018-03-22] MEDS: Folic Acid TAB* 1 MG PO SCH (09:31)
[2018-03-22] MEDS: Omeprazole CAP* 20 MG PO SCH (09:36)
[2018-03-22] MEDS: Atorvastatin* 10 MG TAB PO SCH (22:05)
[2018-03-22] MEDS: NS 0.9% 1000 ML* 1,000 ML IV SCH (22:05)
--- NOTE | 2018-03-22 23:02 | CONS ---
CONSULTATION REPORT: DATE OF CONSULT: 03/22/18 PATIENT OF: Mamta Lemus NP and Dr. Palemr. HISTORY OF PRESENT ILLNESS: This is a 52-year-old alcoholic man who drinks a case of beer daily and has a history of hemochromatosis, coronary artery disease , hypertension, hyperlipidemia and polyneuropathy, who apparently at 3 on collapsed for a few hours and he passed out falling down the stairs and then he apparently passed out in the ambulance. When he presented in the ER, he had blood alcohol level of 487. PAST MEDICAL HISTORY: Significant for alcoholism, degenerative disk disease, hemochromatosis, coronary artery disease, hypertension, hyperlipidemia, peripheral neuropathy, GERD. MEDICATIONS AT HOME: Include: 1. Oxycodone 15 b.i.d. 2. Zyrtec 20 mg daily. 3. Trazodone 50 mg at bedtime. 4. Omeprazole 40 mg in the morning. 5. Lipitor 10 mg at bedtime. 6. Lisinopril 5 mg q.a.m. 7. Felodipine 5 mg q.a.m. ALLERGIES: He is allergic to FLEXERIL; LATEX; ASPIRIN, he gets stomach cramps; IBUPROFEN, he gets stomach cramps. SOCIAL HISTORY: He smokes 1 pack of cigarettes a day, 1 case of beer daily. REVIEW OF SYSTEMS: Review of systems is negative in all 14 spheres, although history is somewhat limited. PHYSICAL EXAM: Temperature 97.8, pulse 83, respirations 20, blood pressure 139/ 80. He is alert. He knew he was at [facility]. He felt it was 03/19, but it was 03/22/18. He knew his age and his name. He spoke in complete sentences. He could name body parts. He did have slurred speech. Cranial nerves II through XII were intact. There was no nystagmus. [id number] was intact other than a [id number]-[id number] intention tremor; however, rapid alternating movements were quite sloppy. Strength: He needed coaxing, but in the upper extremities he was at least 5-/5. The lower extremities, he said he could not move at all, though he was moving earlier today per Ms. Lemus. When I moved his right leg, he said it hurts and he hurt all over without any occasion, but then later on I tested him and he had at least 4/5 plantarflexion and dorsiflexion in both feet, though his exam was hard to assess. He appeared to have decreased sensation to vibration in the feet, but he had changing hard to interpret exam. Reflexes were trace to 1. Toes were downgoing. Chest: Clear. Cardiovascular: Regular rate and rhythm. Abdomen: Soft. He had bloodshot eyes bilaterally. DIAGNOSTIC STUDIES/LAB DATA: His CT scan was reviewed and showed some mild atrophy for age, but no acute findings. Labs include a normal BMP. Most recent magnesium was 1.6. C-reactive protein 8.29. Ammonia 30. Normal liver function tests other than an AST of 73. B12 1278. TSH 3.51. IMPRESSION AND PLAN: Prasanna has significant alcoholism. It is unclear whether his slurring is just part of his alcohol chronic and acute toxicity. I think that this is the most likely thing. He is a hard person to evaluate because he is not fully cooperative with exam. It would make sense to get a MRI scan to screen for thing such as subacute stroke. We would not do anything differently in terms of he is outside of anytime window for acute intervention. He does not tolerate aspirin well and with his alcoholism, I am going to have him on antiplatelet agent until we document clear findings of stroke on MRI scan. Therefore, he will need to be reevaluated after his MRI scan to be done tomorrow. I discussed this with Ms. Lemus. Thank you for sharing his case. [id number]/[facility] #: [id number] [place]
[2018-03-23] MEDS ORDERED: LORazepam INJ* 2 MG/ML 1 ML VIAL IV PUSH ONE (04:38)
[2018-03-23] MEDS: LORazepam INJ* 2 MG/ML 1 ML VIAL ONE ×2 (04:56→05:22)
[2018-03-23 07:08] LABS: EGFR Non-African American 174.6 (>60)
[2018-03-23] MEDS ORDERED: Pneumococcal *Vac Polyvalent 0.5 ML VIAL IM ONE (09:00)
[2018-03-23] MEDS: Omeprazole CAP* 20 MG PO SCH (09:14)
[2018-03-23] MEDS: Folic Acid TAB* 1 MG PO SCH (09:16)
[2018-03-23] MEDS: Multivitamins/Minerals TAB PO SCH (09:16)
[2018-03-23] MEDS: Thiamine TAB* 100 MG TAB PO SCH (09:16)
[2018-03-23] MEDS: Magnesium Oxide TAB* 400 MG PO SCH (09:17)
[2018-03-23] MEDS: Lisinopril TAB* 5 MG PO SCH (09:18)
--- NOTE | 2018-03-23 11:20 | PN ---
Subjective Date of Service: 03/23/18 Interval History: Mr. Lizama reports feeling well this morning. He is difficult to understand d/ t slurred speech, but denies any significant complaints. He denies pain. No N/V/ D, chest pain, SOB. Family History: Unchanged from Admission Social History: Unchanged from Admission Past Medical History: Unchanged from Admission Objective Active Medications: Acetaminophen (Tylenol Tab*) 650 mg PO Q4H PRN Atorvastatin Calcium (Lipitor*) 10 mg PO BEDTIME [facility] Device (Nicotine Mouth Piece*) 1 each INH .USE WITH NICOTROL PRN Folic Acid (Folvite Tab*) 1 mg PO DAILY [facility] Sodium Chloride (Ns 0.9% 1000 Ml*) 1,000 mls @ 100 mls/hr IV PER RATE [facility] Lisinopril (Prinivil Tab*) 5 mg PO QAM [facility] Lorazepam (Ativan Tab(*)) 0.5 mg PO Q6H PRN Magnesium Oxide (Magox 400 Tab*) 400 mg PO DAILY [facility] Multivitamins/Minerals (Theragran/Minerals Tab*) 1 tab PO DAILY [facility] Nicotine (Nicotine Inhaler*) 10 mg INH Q2H PRN Omeprazole (Prilosec Cap*) 40 mg PO QAM@0730 [facility] Thiamine HCl (Vitamin B-1 Tab*) 100 mg PO DAILY [facility] Vital Signs - 8 hr 03/23/18 03/23/18 05:05 06:05 Respiratory 18 18 Rate Oxygen Devices in Use Now: None Appearance: Elderly male sitting in bed in no acute distress. Slightly drowsy, but able to participate in conversation and follows commands. Eyes: No Scleral Icterus, PERRLA Ears/Nose/Mouth/Throat: NL Teeth, Lips, Gums, Mucous Membranes Moist Neck: NL Appearance and Movements; NL JVP, Trachea Midline Respiratory: Symmetrical Chest Expansion and Respiratory Effort, Clear to Auscultation Cardiovascular: NL Sounds; No Murmurs; No JVD, RRR, No Edema Abdominal: NL Sounds; No Tenderness; No Distention, No Hepatosplenomegaly Extremities: No Edema Neurological: NL Sensation, - - Oriented to self and time Lines/Tubes/Other Access: Clean, Dry and Intact Peripheral IV Nutrition: Taking PO's Result Diagrams: 03/21/18 21:00 03/23/18 06:35 Assess/Plan/Problems-Billing Assessment: Patient is a 52yo female with a PMH for alcohol abuse, hemochromatosis, and is presenting with syncope while intoxicated, acute alcohol withdrawal, gait dysfunction and encephalopathic changes. - Patient Problems (1) Alcoholic encephalopathy Current Visit: Yes Status: Acute Priority: High Code(s): G31.2 - DEGENERATION OF NERVOUS SYSTEM DUE TO ALCOHOL; F10.20 - ALCOHOL DEPENDENCE, UNCOMPLICATED SNOMED Code(s): 944319286 Comment: - Wernicke's encephalopathy vs other neurological process - Continues to have slurred speech and some confusion - Appreciate neurology consult - Brain MRI today - Continue ativan for anxiety (2) Alcoholism Current Visit: Yes Status: Acute Priority: High Code(s): F10.20 - ALCOHOL DEPENDENCE, UNCOMPLICATED SNOMED Code(s): 4102114 Comment: - [facility] protocol stopped - Advise complete abstinence (3) Gait disorder Current Visit: Yes Status: Acute Priority: High Code(s): R26.9 - UNSPECIFIED ABNORMALITIES OF GAIT AND MOBILITY SNOMED Code(s): 68050029 Comment: - Shar 2/2 alcoholic neuropathy and encephalopathy - Reports numbness in bilat lower legs for several months - PT recommends physical rehab (4) Hypomagnesemia Current Visit: Yes Status: Acute Priority: High Code(s): E83.42 - HYPOMAGNESEMIA SNOMED Code(s): 140225256 Comment: - 4gm Mag sulfate today - Repeat labs in AM (5) HTN (hypertension) Current Visit: Yes Status: Acute Code(s): I10 - ESSENTIAL (PRIMARY) HYPERTENSION SNOMED Code(s): 50608353 Comment: - Continue lisinopril (6) CAD (coronary artery disease) Current Visit: Yes Status: Chronic Priority: Medium Code(s): I25.10 - ATHSCL HEART DISEASE OF [place] CORONARY ARTERY W/O ANG PCTRS SNOMED Code(s): 50331318 Comment: - Continue atorvastatin - Reported GI bleed in the past from aspirin use (7) Hemochromatosis Current Visit: Yes Status: Acute Code(s): E83.119 - HEMOCHROMATOSIS, UNSPECIFIED SNOMED Code(s): 314251033 Comment: - Stable (8) Full code status Current Visit: Yes Status: Acute Priority: High Code(s): Z78.9 - OTHER SPECIFIED HEALTH STATUS SNOMED Code(s): 030161073 (9) DVT prophylaxis Current Visit: Yes Status: Acute Priority: High Code(s): JHJ5837 - SNOMED Code(s): 704575831 Comment: - SCDs and encourage ambulation Status and Disposition: Ready for d/c to [facility] pending MRI.
--- NOTE | 2018-03-23 11:43 | RAD ---
HISTORY: slurred speech COMPARISONS: Head CT dated March 21, 2018 TECHNIQUE: The following sequences were obtained of the head: Sagittal T1-weighted images, axial T2-weighted images, axial FLAIR images, axial susceptibility weighted images, axial T1-weighted images. Additionally, axial diffusion-weighted images were obtained with calculated apparent diffusion coefficients. FINDINGS: HEMORRHAGE/INFARCT: There is no hemorrhage or acute infarct. MASSES/SHIFT: There is no mass or shift. EXTRA-AXIAL SPACES/MENINGES: There are no extra-axial fluid collections. SULCI AND VENTRICLES: The sulci and ventricles are normal in size and position for the patient's stated age. CEREBRUM: There are few scattered small foci of elevated T2/FLAIR signal within the periventricular and subcortical white matter. There is a chronic appearing lacunar infarct of the left thalamus. BRAINSTEM: There are no focal parenchymal abnormalities. CEREBELLUM: There are no focal parenchymal abnormalities. The cerebellar tonsils are normal in size and position. SELLA: The sella is normal. PINEAL: The pineal region is clear. CP ANGLE/TEMPORAL BONES: The labyrinthine structures are grossly normal. VESSELS: Normal flow-voids are noted within the visualized vertebral vasculature. DIFFUSION ABNORMALITIES: There are no diffusion abnormalities. PARANASAL SINUSES/MASTOIDS: There is a probable mucocele of the right frontal skull adjacent to the frontal sinus. ORBITS: The orbits are unremarkable. BONES AND SOFT TISSUE: No bone or soft tissue abnormalities are noted. OTHER: None IMPRESSION: 1. NO RESTRICTED DIFFUSION TO SUGGEST ACUTE INFARCT. 2. CHRONIC APPEARING LACUNAR INFARCT OF THE LEFT THALAMUS. 3. SCATTERED NONSPECIFIC WHITE MATTER CHANGES. GIVEN THE PRESENCE OF A LACUNAR INFARCT IN THE LEFT THALAMUS, THESE LIKELY REPRESENT CHRONIC SMALL VESSEL ISCHEMIC CHANGES. 4. INCIDENTALLY NOTED IS A PROBABLE MUCOCELE OF THE RIGHT FRONTAL SINUS.
[2018-03-23] MEDS ORDERED: Magnesium Sulf 4 GM/100 ML IV* 4,000 MG/100 ML BAG IVPB ONE (12:00)
[2018-03-23] MEDS: NS 0.9% 1000 ML* 1,000 ML IV SCH (15:46)
[2018-03-23] MEDS: Atorvastatin* 10 MG TAB PO SCH (20:23)
--- NOTE | 2018-03-23 22:30 | PN ---
PROGRESS NOTE: DATE OF SERVICE: 03/23/18 PATIENT OF: Esther Cai NP. HISTORY: Mr. Rodriguez has no new complaints. He still has some slurring of his speech. MEDICATIONS: Include: 1. Thiamine 100 mg daily. 2. Prilosec 40 mg daily. 3. Nicotine inhaler 10 mg q.2 hours p.r.n. 4. Ativan 0.5 p.r.n. 5. Lisinopril 5 mg p.o. q.a.m. 6. Lipitor 10 mg at bedtime. PHYSICAL EXAMINATION: He is alert and oriented, but still with slurred speech. Cranial nerves were otherwise intact. Motor exam revealed normal tone and strength. He still has some clumsy movements and has slight past-pointing today on exam. DIAGNOSTIC STUDIES/LAB DATA: I reviewed his MRI scan, which showed some diffuse atrophy including in the cerebellum. He also had some white matter changes and lacunar infarct in the left thalamus. There is no acute stroke or other acute findings. BMP today was normal other than magnesium 1.5. ASSESSMENT AND PLAN: Mr. Rodriguez's slurred speech is most likely just due to his alcoholism. There is no evidence of an acute stroke. I have no other recommendations to make at this point. [id number]/[facility] #: [id number] [facility]
--- NOTE | 2018-03-24 01:15 | DS ---
CC: Dr. Palmer * DISCHARGE SUMMARY: DATE OF ADMISSION: 03/16/18 DATE OF DISCHARGE: 03/24/18 PRIMARY CARE PROVIDER: Dr. Palmer. ATTENDING PHYSICIAN: Dr. Flory Winkler * (dictated by Erika Cai NP). PRIMARY DIAGNOSES: 1. Alcoholic encephalopathy. 2. Alcohol withdrawal. 3. 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 4. Hypomagnesemia. SECONDARY DIAGNOSES: 1. Hypertension. 2. Coronary artery disease. 3. Hemochromatosis. 4. Hyperlipidemia. 5. Peripheral neuropathy. 6. Gastroesophageal reflux disease. STUDIES WHILE IN THE HOSPITAL: 1. Chest x-ray on 03/15/18 reads as stigmata of potential obstructive lung disease. No evidence for acute intrathoracic disease. 2. Brain CT on 03/15/18 reads as no traumatic intracranial abnormalities, age- related atrophy and mild chronic small vessel ischemic disease. 3. Cervical spine CT on 03/15/18 reads as no cervical spine traumatic abnormalities, mild C6 through C7 cervical spondylopathy. 4. Transthoracic echocardiogram on 03/16/18 reads as global hypokinesis of the left ventricle, mildly decreased left ventricular systolic function, estimated ejection fraction is 45% to 50%. Right ventricular global systolic function is normal. Aortic valve leaflets are mildly thickened. No evidence of aortic stenosis. Trace mitral regurgitation, trace tricuspid regurgitation. No significant pericardial effusion. 5. Brain CT on 03/21/18 reads as no acute intracranial pathology. 6. Chest x-ray on 03/21/18 reads as no evidence for acute intrathoracic disease. 7. Brain MRI on 03/23/18 reads as no restricted diffusion to suggest acute infarct. Chronic appearing lacunar infarct of the left thalamus scattered nonspecific white matter changes given the presence of a lacunar infarct in the left thalamus. These likely represent chronic small vessel ischemic changes. 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 CONSULTATIONS WHILE IN THE HOSPITAL: The patient was seen in consultation by Dr. Mason on 03/22/18. At that point, Dr. Mason felt that the most of his acute issues were related to chronic alcoholism and acute toxicity. He felt as though a brain MRI should be done in order to rule out a subacute stroke. DISCHARGE MEDICATIONS: New Medications: 1. Folic acid 1 mg p.o. daily. 2. Magnesium oxide 400 mg p.o. daily. 3. Multivitamin 1 tab p.o. daily. 4. Thiamine 100 mg p.o. daily. 5. Lorazepam 0.5 mg p.o. q.6 hours p.r.n. 6. Olanzapine 5 mg p.o. bedtime Continued home medications: 1. Atorvastatin 10 mg p.o. daily. 2. Lisinopril 5 mg p.o. daily. 3. Omeprazole 40 mg p.o. daily. 4. Acetaminophen 325 mg p.o. daily. 5. Cetirizine 20 mg p.o. daily. 6. Felodipine 5 mg p.o. daily. Changed home medications: None. Discontinued home medications: None. HISTORY OF PRESENT ILLNESS AND HOSPITAL COURSE: Mr. Rodriguez is a 52-year-old male with a past medical history of alcoholism, hemochromatosis, CAD, hypertension, hyperlipidemia, and polyneuropathy, who presented to the emergency room on 03/15/18 with complaints of syncope. Please see the history and physical by Dr. Chahal for complete summary of the events leading up to his hospitalization, but in short, his daughter reported that she was helping him up the stairs when he "collapsed for a few hours." EMS was called and he reportedly syncopized in the ambulance en route to the hospital. In the ED there were no telemetry abnormalities. He denied any complaints at that time. He was noted to have an elevated blood alcohol of 487. He was admitted for syncope and alcohol withdrawal. During this hospitalization, it was determined that the syncope was likely related to his acute intoxication as he had an unremarkable cardiac workup. He was placed on [facility] protocol for alcohol withdrawal, which he completed on . Since that time, he has continued to have slurred speech and confusion, which was determined to the likely related to his alcoholism, less likely Wernicke's encephalopathy. All imaging was negative for any acute changes. He did have multiple instances where he became belligerent and aggressive towards staff, during which time he required Haldol. He has not required any Haldol or other sedatives since 03/19/18, although, he has continued to receive lorazepam 0.5 mg PO as needed. He did require a Beasley catheter for acute retention, which was successfully removed on 03/23/18. The patient continues to be slightly confused and has slurred speech. Physical Therapy recommended rehab for his gait disorder which is likely in part related to neuropathy in his lower extremities. He has been for the most part normotensive during this admission. He has had multiple instances of hypomagnesemia for which his magnesium was repleted. His hemochromatosis appears to be stable at this point. On the night prior to discharge, the patient became anxious overnight, hallucinating about attempted bombings. He was given lorazepam and Seroquel which resolved his agitation. His night was otherwise uneventful and he is pleasant and cooperative this morning. Mr. Rodriguez is stable for discharge to [facility]. Vital signs are as follows: Temp 97.4, heart rate 70, respiratory rate 18, oxygen saturation 99% on room air, blood pressure 156/87. DISCHARGE PLAN: Mr. Rodriguez will be discharged to [facility] for physical rehabilitation. Activity will be as tolerated. Diet will be regular as tolerated. He has been prescribed multiple new medications on discharge including lorazepam p.r.n., folic acid, magnesium oxide, multivitamin , and thiamine. Further medical management will be at the discretion of [facility]. The patient should follow up with his PCP in 4 to 7 days. He should return to the emergency room or nearest hospital for any worsening or symptoms, shortness of breath, lightheadedness, dizziness, chest discomfort, high fevers, chills, night sweats, loss of consciousness, or any other worrisome signs or symptoms. This is a summarized report of a complex medical history and hospital stay. For further details, please see the entire medical record. This case has been reviewed with my attending, Dr. Winkler, who is in agreement with the plans for discharge. TIME SPENT: Approximately 45 minutes were spent on this discharge, greater than half of that time was spent [id number] with the patient discussing discharge plans and instructions. ERIKA CAI NP [id number]/[facility] #: [id number] CHRYSTAL
[2018-03-24] MEDS ORDERED: LORazepam INJ* 2 MG/ML 1 ML VIAL IV PUSH ONE (04:00)
[2018-03-24] MEDS: Omeprazole CAP* 20 MG PO SCH (08:09)
[2018-03-24] MEDS: Lisinopril TAB* 5 MG PO SCH (08:10)
[2018-03-24] MEDS: Magnesium Oxide TAB* 400 MG PO SCH (08:10)
[2018-03-24] MEDS: Folic Acid TAB* 1 MG PO SCH (08:10)
[2018-03-24] MEDS: Multivitamins/Minerals TAB PO SCH (08:10)
[2018-03-24] MEDS: Thiamine TAB* 100 MG TAB PO SCH (08:10)
[2018-03-24 12:48] VITALS: BP 115/74
[2018-03-24] MEDS ORDERED: OLANzapine TAB*ODT* 5 MG PO SCH (21:00)
== END 2018-03-24 14:20 | DRG 775 ==
LOC: ED 21:19 → INTOOBSV 03-16 03:15 → MEDTELE 03-16 03:15 → OBSVTOIN 03-17 14:52 → MED 03-18 19:47
PROVIDERS: ADMIT Hospitalist; ATTEND Internal Medicine
DX: F10.229 Alcohol dependence with intoxication, unspecified (principal); F10.239 Alcohol dependence with withdrawal, unspecified; G31.2 Degeneration of nervous system due to alcohol; Y90.8 Blood alcohol level of 240 mg/100 ml or more; I10 Essential (primary) hypertension; R20.0 Anesthesia of skin; J30.2 Other seasonal allergic rhinitis; K21.9 Gastro-esophageal reflux disease without esophagitis; M19.042 Primary osteoarthritis, left hand; M19.041 Primary osteoarthritis, right hand; G62.9 Polyneuropathy, unspecified; F17.210 Nicotine dependence, cigarettes, uncomplicated; R40.2352 Coma scale, best motor response, localizes pain, at arrival to emergency department; R40.2142 Coma scale, eyes open, spontaneous, at arrival to emergency department; R40.2252 Coma scale, best verbal response, oriented, at arrival to emergency department; E78.5 Hyperlipidemia, unspecified; E83.119 Hemochromatosis, unspecified; E83.42 Hypomagnesemia; I08.1 Rheumatic disorders of both mitral and tricuspid valves; R26.9 Unspecified abnormalities of gait and mobility; R33.9 Retention of urine, unspecified; R45.1 Restlessness and agitation; I25.2 Old myocardial infarction; Z86.73 Personal history of transient ischemic attack (TIA), and cerebral infarction without residual deficits; Z88.8 Allergy status to other drugs, medicaments and biological substances; Z91.040 Latex allergy status; Z87.01 Personal history of pneumonia (recurrent)
CPT/HCPCS: 36415; 36600; 70450; 70551; 71045; 72125; 80048; 80053; 80320; 81003; 81015; 82140; 82607; 82728; 82803; 83540; 83550; 83605; 83735; 83874; 84443; 84484; 85025; 85610; 85652; 85730; 86140; 87086; 87493; 90686; 90732; 93005; 93306; 99284; 99406; A9270-GY; A9579; G0480; G8978-GP-CJ; G8979-GP-CI; G8987-GO-CL; G8988-GO-CI; J1630; J2060; J2310; J3411; J3475

== ENCOUNTER 2019-03-23 19:11 | Emergency (ER) | payer OTHER ==
[2019-03-23] MEDS: Iodixanol* (CONTRAST) 320 MG/ML 100 ML SDV IV ONE (20:13)
[2019-03-23 20:36] LABS: ABS Eosinophils 0.3 10^3/ul (0-0.6); ABS Lymphocytes 2.5 10^3/ul (1.0-4.8); ABS Monocytes 0.8 10^3/ul (0-0.8); ABS Neutrophils 4.2 10^3/ul (1.5-7.7); Eosinophil % 3.3 %; Hematocrit 43 % (42-52); Hemoglobin 14.9 g/dL (14.0-18.0); Mean Corpuscular HGB Conc 35 g/dL (31-36); Mean Corpuscular Hemoglobin 36 pg (27-31); Mean Corpuscular Volume 104 fL (80-94); Mean Platelet Volume 8.1 fL (7.4-10.4); Nucleated Red Blood Cells % 0.1; Platelet Count 271 10^3/uL (150-450); Red Blood Count 4.14 10^6 /uL (4.18-5.48); Red Cell Distribution Width 14 % (10-15); White Blood Count 7.8 10^3/uL (3.5-10.8)
--- NOTE | 2019-03-23 20:37 | ED ---
HPI Chest Pain - HPI Summary HPI Summary: Pt is a 53 y/o M presenting to the ED with a chief complaint of chest pain initially onset a couple of weeks ago but worsened today, 03/23/19. He states it began this morning when he woke up and it comes and goes intermittently. EMS states family reported episodes of confusion, and EMS noted a syncopal episode in the ambulance lasting about 30 seconds. EMS denies the pt having seizure activity. Pt reports LEE and chronic weakness in his LE. He denies vomiting or diarrhea, and states his would better remember his episodes of confusion. He notes hx of two CVAs in 2018. - History of Current Complaint Chief Complaint: EDChestPainROMI Time Seen by Provider: 03/23/19 19:26 Hx Obtained From: Patient Onset/Duration: Started Hours Ago, Still Present Timing: Intermittent, Lasting Hours Initial Severity: Moderate Current Severity: Moderate Pain Intensity: 7 Pain Scale Used: 0-10 Numeric Chest Pain Location: Diffuse Chest Pain Radiates: No Aggravating Factor(s): Nothing Alleviating Factor(s): Nothing Associated Signs and Symptoms: Positive: Chest Pain, Headaches, Weakness - chronic in LE, Syncope - reported by EMS, Other: - confusion. Negative: Vomiting - Additional Pertinent History Primary Care Physician: [id number] - Allergy/Home Medications Allergies/Adverse Reactions: Allergies Allergy/AdvReac Type Severity Reaction Status Date / Time cyclobenzaprine Allergy Severe Anaphylatic Verified 07/16/18 14:57 [From Flexeril] Shock latex Allergy Rash Verified 07/16/18 14:57 aspirin AdvReac Stomach Verified 07/16/18 14:57 Cramps ibuprofen AdvReac Stomach Verified 07/16/18 14:57 Cramps Home Medications: Home Medications Cetirizine* [ZyrTEC 10 MG TAB*] 10 mg PO DAILY 03/23/19 [History Confirmed 03/23] Felodipine (NF) [Plendil (NF)] 5 mg PO DAILY 03/23/19 [History Confirmed ] Omeprazole (Nf) [Prilosec (NF)] 40 mg PO DAILY 03/23/19 [History Confirmed 03/23] PMH/Surg Hx/FS Hx/Imm Hx Previously Healthy: Yes Endocrine/Hematology History: Reports: Other Endocrine/Hematological Disorders - Hemochromatosis Denies: Hx Diabetes Cardiovascular History: Reports: Hx Hypercholesterolemia, Hx Hypertension, Hx Syncope Denies: Hx Pacemaker/ICD Respiratory History: Reports: Hx Pneumonia, Hx Seasonal Allergies GI History: Reports: Hx Gastroesophageal Reflux Disease, Hx Ulcer History: Denies: Hx Renal Disease Musculoskeletal History: Reports: Hx Arthritis - HANDS, Hx Back Problems, Hx Orthopedic Injury Sensory History: Reports: Hx Contacts or Glasses - Not currently with patient, Hx Eye Injury Denies: Hx Legally Blind, Hx Deafness, Hx Hearing Aid Opthamlomology History: Reports: Hx Contacts or Glasses - Not currently with patient, Hx Eye Injury Denies: Hx Legally Blind Neurological History: Reports: Hx CVA, Hx Headaches, Hx Peripheral Neuropathy Psychiatric History: Reports: Hx Substance Abuse - alcohol Denies: Hx Panic Disorder - Surgical History Surgery Procedure, Year, and Place: Piece of metal removed from left eye 1987 done in [place] Anesthesia Reactions: No - Immunization History Date of Tetanus Vaccine: utd Date of Influenza Vaccine: utd Infectious Disease History: No Infectious Disease History: Denies: Traveled Outside the [place] in Last 30 Days - Family History Known Family History: Negative: Blood Disorder - Social History Alcohol Use: Daily Alcohol Amount: 7.5 beers a day Hx Substance Use: No Substance Use Type: Reports: None Hx Tobacco Use: Yes Smoking Status (MU): Current Every Day Smoker Type: Cigarettes Amount Used/How Often: 10 cigarettes/ day Have You Smoked in the Last Year: Yes Review of Systems Positive: Other - confusion Positive: Chest Pain Negative: Vomiting, Diarrhea Positive: Weakness - chronic in LE, Syncope - reported by EMS All Other Systems Reviewed And Are Negative: Yes Physical Exam - Summary Physical Exam Summary: Constitutional: Well-developed, Well-nourished, Alert. (-) Distressed. Pt smells of alcohol. Skin: Warm, Dry HENT: Normocephalic; Atraumatic Eyes: Conjunctiva normal Neck: Musculoskeletal ROM normal neck. (-) JVD, (-) Stridor, (-) Tracheal deviation Cardio: Rhythm regular, rate normal, Heart sounds normal; Intact distal pulses; Radial pulses are 2+ and symmetric. (-) Murmur Pulmonary/Chest wall: Effort normal. (-) Respiratory distress, (-) Wheezes, (-) Rales Abd: Soft, (-) tenderness, (-) Distension, (-) Guarding, (-) Rebound Musculoskeletal: (-) Edema. Weakness in bilateral LE. Lymph: (-) Cervical adenopathy Neuro: Alert, Oriented x3 Psych: Mood and affect Normal Triage Information Reviewed: Yes Vital Signs On Initial Exam: Initial Vitals Temp Pulse Resp BP Pulse Ox 99.2 F 87 12 157/93 96 03/23/19 19:18 03/23/19 19:18 03/23/19 19:18 03/23/19 19:18 03/23/19 19:18 Vital Signs Reviewed: Yes - Pily Coma Scale Best Eye Response: 4 - Spontaneous Best Motor Response: 6 - Obeys Commands Best Verbal Response: 5 - Oriented Coma Scale Total: 15 Procedures - Sedation Patient Received Moderate/Deep Sedation with Procedure: No Diagnostics - Vital Signs Vital Signs Temp Pulse Resp BP Pulse Ox 03/23/19 19:18 99.2 F 87 12 157/93 96 - Laboratory Result Diagrams: 03/23/19 20:25 03/23/19 20:24 Lab Statement: Any lab studies that have been ordered have been reviewed, and results considered in the medical decision making process. - CT CT Chest/Abd/Pelvis CT Interpretation Completed By: Radiologist Summary of CT Findings: No acute findings in the chest. Specifically, no aneurysm or dissection. No acute findings in the abdomen and pelvis. Specifically, no aneurysm or dissection. ED physician has reviewed this report. Brain CT CT Interpretation Completed By: Radiologist Summary of CT Findings: 1. No acute intracranial abnormality. 2. No change from the comparison study. ED physician has reviewed this report. - EKG 1911 Cardiac Rate: NL - 87bpm EKG Rhythm: Sinus Rhythm ST Segment: Normal Ectopy: None Summary of EKG Findings: EKG at 1911 shows NSR at 87bpm with no STEMI. ED physician has reviewed and interpreted this report. Re-Evaluation - Re-Evaluation 1st re-eval Re-Evaluation Time: 01:09 Change: Unchanged Comment: Pt is standing at bedside and is very adamant about leaving. RN called pt's daughter for a safe, sober ride home, who is coming to pick the pt up. Chest Pain Course/Dx - Course Course Of Treatment: Patient is here with chest pain, altered mental status. Patient had a stat CTA of his chest. Abdomen/pelvis which was negative for any dissection or aneurysm. Patient also had a negative CT brain performed. Patient bloater performed which showed an alcohol level in the 300s. Patient states he had an episode of arrhythmia in the [place] 30 years ago which was concerning given his 2 syncopal episodes today. Patient's also had prior CVAs. Patient was initially admitted but then became irate and wanted to leave. The patient's and daughter were called who came to pick him up. Patient left AGAINST MEDICAL ADVICE without discharge paperwork - Diagnoses Provider Diagnoses: Syncope, Chest pain, Altered mental status, Alcohol intoxication - Provider Notifications Discussed Care Of Patient With: Tj Troy Time Discussed With Above Provider: 22:25 Instructed by Provider To: Admit As Inpatient Discharge ED - Sign-Out/Discharge Documenting (check all that apply): Patient Departure - Discharge Plan Condition: Stable Disposition: AGAINST MEDICAL ADVICE Referrals: Christiana Palmer MD [Primary Care Provider] - Additional Instructions: Come back to the emergency department if you decide you'd like to be treated for your medical conditions. - Billing Disposition and Condition Condition: STABLE Disposition: Against Medical Advice - Attestation Statements Document Initiated by Scribe: Yes Documenting Scribe: Maribel Rodriguez Provider For Whom Nikki is Documenting (Include Credential): John Syed MD. Scribe Attestation: IMaribel, scribed for John Syed MD. on 03/24/19 at 0245. Scribe Documentation Reviewed: Yes Provider Attestation: The documentation as recorded by the scribeMaribel accurately reflects the service I personally performed and the decisions made by me, John Syed MD. Status of Scribe Document: Viewed Consult Consult: [id number] - I spoke with Dr. Troy who accepts the pt for admission to [facility].
[2019-03-23 20:52] LABS: Albumin 4.3 g/dL (3.2-5.2); Albumin/Globulin Ratio 1.5 (1-3); Calcium 9.1 mg/dL (8.6-10.3); EGFR African American 170.5 (>60); EGFR Non-African American 140.9 (>60); Globulin 2.8 g/dL (2-4); Potassium 4.3 mmol/L (3.5-5.0); Total Bilirubin 0.4 mg/dL (0.2-1.0); Total Protein 7.1 g/dL (6.4-8.9)
[2019-03-23 20:54] LABS: Troponin I 0.01 ng/mL (<0.04)
[2019-03-23 21:22] LABS: TSH (Thyroid Stimulating Horm) 1.06 mcIU/mL (0.34-5.60)
[2019-03-23] MEDS: NS 0.9% 1000 ML** 1,000 ML IV ONE (21:24)
[2019-03-24 01:33] VITALS: BP 0/0
== END 2019-03-24 01:32 | disposition left against medical advice (07) ==
LOC: ED 19:11
DX: R07.9 Chest pain, unspecified (principal); R55 Syncope and collapse; R41.82 Altered mental status, unspecified; F10.929 Alcohol use, unspecified with intoxication, unspecified; F17.210 Nicotine dependence, cigarettes, uncomplicated; E78.00 Pure hypercholesterolemia, unspecified; I10 Essential (primary) hypertension; K21.9 Gastro-esophageal reflux disease without esophagitis; Z86.73 Personal history of transient ischemic attack (TIA), and cerebral infarction without residual deficits; Z79.899 Other long term (current) drug therapy; Z88.8 Allergy status to other drugs, medicaments and biological substances; Z88.6 Allergy status to analgesic agent; Z91.040 Latex allergy status
CPT/HCPCS: 36415; 70450; 71275; 74174; 80053; 80320; 82140; 83605; 84443; 84484; 85025; 93005; 96360; 96361; 99283; G0480; Q9967

== ENCOUNTER 2022-01-29 12:40 | Inpatient (IN) ==
[2022-01-29] MEDS ORDERED: Lactated Ringers 1000 ml BAG 1,000 ML IV ONE ×2 (13:02→13:27)
[2022-01-29] MEDS ORDERED: Cefepime 2 GM in Dextrose 2 GM/50 ML BAG IV ONE (13:03)
[2022-01-29 13:14] LABS: PCO2 Arterial 22 mmHg (35-45); PO2 Arterial 75 mmHg (80-100)
[2022-01-29 13:19] LABS: Hematocrit 39 % (42-52); Hemoglobin 13.9 g/dL (14.0-18.0); Mean Corpuscular HGB Conc 35 g/dL (31-36); Mean Corpuscular Hemoglobin 36 pg (27-31); Mean Corpuscular Volume 103 fL (80-94); Mean Platelet Volume 10.8 fL (7.4-10.4); Platelet Count 143 10^3/uL (150-450); Red Blood Count 3.85 10^6 /uL (4.18-5.48); Red Cell Distribution Width 14 % (10-15); White Blood Count 3.3 10^3/uL (3.5-10.8)
[2022-01-29 13:25] LABS: Activated Partial Thrombo Time 37.4 seconds (26.0-38.0); INR 0.97 (0.89-1.11)
[2022-01-29 13:35] LABS: Urine Appearance Turbid; Urine Bilirubin 1+ (Small) (Negative); Urine Color Amber; Urine Glucose Negative (Negative); Urine Ketones Negative (Negative)
[2022-01-29 13:36] LABS: Urine Blood 3+ (Large) (Negative); Urine Nitrite Negative (Negative); Urine Protein 3+ (>=300 mg/dL) (Negative); Urine Urobilinogen 1.0 (Negative) (Negative); Urine pH 5.5 (5.0-9.0)
[2022-01-29 13:41] LABS: High Sens Troponin Baseline 1091 pg/mL (<20)
[2022-01-29 13:47] LABS: ALT 150 U/L (7-52); AST 508 U/L (13-39); Albumin 3.1 g/dL (3.2-5.2); Albumin/Globulin Ratio 0.9 (1-3); Alcohol, S < 13 mg/dL (<13); Alkaline Phosphatase 44 U/L (35-149); Anion Gap 17 mmol/L (2-11); Blood Urea Nitrogen 63 mg/dL (6-24); C Reactive Protein 406.93 mg/L (<8.01); CO2 Carbon Dioxide 18 mmol/L (22-32); Calcium 8.1 mg/dL (8.6-10.3); Chloride 95 mmol/L (101-111); Globulin 3.5 g/dL (2-4); Glucose 178 mg/dL (70-100); Potassium 3.4 mmol/L (3.5-5.0); Sodium 130 mmol/L (135-145); Total Protein 6.6 g/dL (6.4-8.9); eGFR CKD-EPI 38.2 (>60)
[2022-01-29 13:56] LABS: ABS Lymphocytes 0.2 10^3/ul (1.0-4.8); ABS Monocytes 0.3 10^3/ul (0-0.8); ABS Neutrophils 2.8 10^3/ul (1.5-7.7); Eosinophil % 0.1 %; Lymphocyte % 5.8 %; Macrocytosis 1+; Nucleated Red Blood Cells % 0.2
[2022-01-29 14:05] LABS: Urine Amorphous Crystals Present (Absent); Urine Bacteria 1+ (Absent); Urine Granular Casts Present (Absent); Urine Red Blood Cell 3+(>10/hpf) (Absent); Urine Squamous Epithelial Cell Present (Absent); Urine Transitional Epithelial Present (Absent); Urine White Blood Cell 3+(>20/hpf) (Absent)
[2022-01-29] MEDS ORDERED: Vancomycin 2,000 MG in NS 0.9% 500 ml BAG 500 ML IVPB ONE (14:30)
[2022-01-29 15:21] LABS: High Sensitivity Troponin 1 Hr 1077 pg/mL (<20)
[2022-01-29] MEDS ORDERED: Lorazepam PYXIS KEY PRN (15:31)
[2022-01-29] MEDS: Piperacillin/Tazobac ADVAN 3.375 GM in NS 0.9% 100 ml BAG 100 ML IV ONE ×2 (15:41→16:23)
[2022-01-29] MEDS ORDERED: Thiamine 100 MG/ML 2 ml VIAL 100 MG, Folic Acid IV 1 MG, Multiple Vitamin IV ADULT 10 M... IV ONE (15:45)
[2022-01-29] MEDS ORDERED: LORazepam 2 mg VIAL 1 ml IV PUSH SCH (16:00)
[2022-01-29] MEDS ORDERED: Zosyn per Pharmacy NOTE FOLLOW UP SCH (16:00)
[2022-01-29 17:11] LABS: CKMB ng/mL 2.9 ng/mL (0.6-6.3)
[2022-01-29 17:22] LABS: Creatine Kinase 10658 U/L (10-223)
[2022-01-29 17:26] LABS: Total Iron Binding Capacity 109 mcg/dL (250-450); Transferrin 78 mg/dL (203-362)
[2022-01-29 17:51] LABS: Ferritin > 1500.0 ng/mL (24-336)
[2022-01-29] MEDS: Azithromycin 500 mg/250 ml NS 500 MG/250 ML BAG IVPB SCH (17:51)
[2022-01-29] MEDS: Linezolid 600 MG IVPREMIX(*) 600 MG/300 ML BAG IVPB SCH (17:51)
[2022-01-29 18:18] LABS: % Iron Saturation 26 % (15-55); Iron 27 ug/dL (50-212); Total Iron Binding Capacity 105 mcg/dL (250-450); Transferrin < 75 mg/dL (203-362); Unsaturated Iron Binding 78 ug/dL
[2022-01-29] MEDS: fentaNYL 100 mcg/2 ml 50 MCG/ML VIAL IV SLOW PU PRN (18:35)
[2022-01-29] MEDS: ZOSYN 3.375 GM Q8H per EXTENDED INFUSION IV SCH (20:31)
[2022-01-29] MEDS: Lactated Ringers 1000 ml BAG 1,000 ML IV SCH (20:40)
[2022-01-29] MEDS: Heparin 5000 UNITS/ML 1 mL VIAL SUBCUT SCH (21:24)
[2022-01-29] MEDS: Acetaminophen IV 1 GM/100ML 1,000 MG/100 ML BAG IV PRN (21:24)
[2022-01-30] MEDS: Acetaminophen IV 1 GM/100ML 1,000 MG/100 ML BAG IV PRN ×3 (02:56→17:05)
[2022-01-30] MEDS: fentaNYL 100 mcg/2 ml 50 MCG/ML VIAL IV SLOW PU PRN (03:03)
[2022-01-30] MEDS: ZOSYN 3.375 GM Q8H per EXTENDED INFUSION IV SCH ×3 (04:07→20:32)
[2022-01-30] MEDS: Linezolid 600 MG IVPREMIX(*) 600 MG/300 ML BAG IVPB SCH (04:08)
[2022-01-30 04:33] LABS: ABS Lymphocytes 0.1 10^3/ul (1.0-4.8); ABS Monocytes 0.2 10^3/ul (0-0.8); ABS Neutrophils 1.5 10^3/ul (1.5-7.7); Eosinophil % 0.3 %; Hematocrit 32 % (42-52); Mean Corpuscular HGB Conc 34 g/dL (31-36); Mean Corpuscular Hemoglobin 36 pg (27-31); Mean Corpuscular Volume 105 fL (80-94); Mean Platelet Volume 10.2 fL (7.4-10.4); Nucleated Red Blood Cells % 0.1; Platelet Count 116 10^3/uL (150-450); Red Blood Count 3.08 10^6 /uL (4.18-5.48); Red Cell Distribution Width 15 % (10-15); White Blood Count 1.8 10^3/uL (3.5-10.8)
[2022-01-30 04:50] LABS: Calcium 7.3 mg/dL (8.6-10.3); Magnesium 2.2 mg/dL (1.9-2.7); Phosphorus 3.2 mg/dL (2.5-5.0); eGFR CKD-EPI 56.6 (>60)
[2022-01-30] MEDS ORDERED: Potassium Chlor 20 meq TAB.ER PO ONE (05:08)
[2022-01-30] MEDS: Heparin 5000 UNITS/ML 1 mL VIAL SUBCUT SCH ×3 (05:42→21:33)
[2022-01-30] MEDS: Lactated Ringers 1000 ml BAG 1,000 ML IV SCH ×2 (06:40→17:05)
[2022-01-30] MEDS: Multivitamins/Minerals TAB PO SCH (09:24)
[2022-01-30] MEDS: Azithromycin 500 mg/250 ml NS 500 MG/250 ML BAG IVPB SCH (15:20)
[2022-01-30] MEDS ORDERED: Albuterol/Ipratropium NEB.SOL (2.5/0.5 MG) 3 ML NEB.SOLN INH PRN (17:02)
[2022-01-30] MEDS: Thiamine 100 MG/ML 2 ml VIAL 500 MG in NS 0.9% 250 ml 250 ML IV SCH (21:33)
[2022-01-31] MEDS: Acetaminophen IV 1 GM/100ML 1,000 MG/100 ML BAG IV PRN ×3 (00:07→21:18)
[2022-01-31] MEDS: diazePAM INJ CARPUJECT 5 MG/ML SYRINGE IV PRN ×2 (02:25→05:58)
[2022-01-31] MEDS: Lactated Ringers 1000 ml BAG 1,000 ML IV SCH ×3 (03:22→22:12)
[2022-01-31] MEDS: ZOSYN 3.375 GM Q8H per EXTENDED INFUSION IV SCH ×3 (04:43→20:30)
[2022-01-31 05:01] LABS: Hematocrit 33 % (42-52); Hemoglobin 10.9 g/dL (14.0-18.0); Mean Corpuscular HGB Conc 33 g/dL (31-36); Mean Corpuscular Hemoglobin 35 pg (27-31); Mean Corpuscular Volume 104 fL (80-94); Mean Platelet Volume 10.4 fL (7.4-10.4); Platelet Count 160 10^3/uL (150-450); Red Blood Count 3.15 10^6 /uL (4.18-5.48); Red Cell Distribution Width 15 % (10-15)
[2022-01-31] MEDS: Heparin 5000 UNITS/ML 1 mL VIAL SUBCUT SCH ×3 (05:13→21:03)
[2022-01-31] MEDS: Thiamine 100 MG/ML 2 ml VIAL 500 MG in NS 0.9% 250 ml 250 ML IV SCH ×3 (05:13→22:01)
[2022-01-31 05:35] LABS: Blood Urea Nitrogen 37 mg/dL (6-24); CO2 Carbon Dioxide 26 mmol/L (22-32); Calcium 7.8 mg/dL (8.6-10.3); Chloride 108 mmol/L (101-111); Glucose 114 mg/dL (70-100); Magnesium 2.4 mg/dL (1.9-2.7); Sodium 142 mmol/L (135-145)
[2022-01-31 05:36] LABS: Anion Gap 8 mmol/L (2-11)
[2022-01-31 06:08] LABS: Target Cells 3+
[2022-01-31 06:12] LABS: ABS Lymphocytes 0.2 10^3/ul (1.0-4.8); ABS Monocytes 0.2 10^3/ul (0-0.8); ABS Neutrophils 3.6 10^3/ul (1.5-7.7); Eosinophil % 1.1 %; Lymphocyte % 4.3 %; Nucleated Red Blood Cells % 0.2; Toxic Granulation 1+
[2022-01-31 06:42] LABS: Potassium Redraw 3.1 mmol/L (3.5-5.0)
[2022-01-31] MEDS: Multivitamins/Minerals TAB PO SCH (08:20)
[2022-01-31] MEDS: KCL 20 MEQ/100 ML IVPREMIX 20 MEQ/100 ML BAG IV SCH ×3 (10:24→14:56)
[2022-01-31] MEDS ORDERED: Diazepam IV 0-15 mg dose for WAM protocol IV SCH (12:00)
[2022-01-31 13:35] LABS: Creatine Kinase 4213 U/L (10-223)
[2022-01-31] MEDS ORDERED: Gadoteridol (CONTRAST) 279.3 MG/ML 10 ML IV ONE (15:20)
[2022-01-31] MEDS: fentaNYL 100 mcg/2 ml 50 MCG/ML VIAL IV SLOW PU PRN (16:03)
[2022-01-31] MEDS: Azithromycin 500 mg/250 ml NS 500 MG/250 ML BAG IVPB SCH (17:38)
[2022-02-01] MEDS ORDERED: Vancomycin 1,000 MG in NS 0.9% 250 ml 250 ML IVPB ONE (02:12)
[2022-02-01] MEDS ORDERED: Vancomycin per Pharmacy 1 EA NOTE FOLLOW UP SCH (03:00)
[2022-02-01] MEDS ORDERED: Vancomycin 1,500 MG in NS 0.9% 250 ml 250 ML IVPB ONE (04:00)
[2022-02-01 04:38] LABS: Hematocrit 35 % (42-52); Mean Corpuscular HGB Conc 34 g/dL (31-36); Mean Corpuscular Hemoglobin 36 pg (27-31); Mean Corpuscular Volume 103 fL (80-94); Mean Platelet Volume 9.9 fL (7.4-10.4); Platelet Count 265 10^3/uL (150-450); Red Blood Count 3.39 10^6 /uL (4.18-5.48); Red Cell Distribution Width 15 % (10-15); White Blood Count 5.9 10^3/uL (3.5-10.8)
[2022-02-01 05:06] LABS: Blood Urea Nitrogen 26 mg/dL (6-24); CO2 Carbon Dioxide 29 mmol/L (22-32); Calcium 8.3 mg/dL (8.6-10.3); Chloride 111 mmol/L (101-111); Glucose 119 mg/dL (70-100); Magnesium 2.1 mg/dL (1.9-2.7); eGFR CKD-EPI 106.8 (>60)
[2022-02-01 05:09] LABS: Anion Gap 11 mmol/L (2-11); Sodium 151 mmol/L (135-145)
[2022-02-01] MEDS: ZOSYN 3.375 GM Q8H per EXTENDED INFUSION IV SCH ×3 (05:15→20:27)
[2022-02-01 05:28] LABS: Creatine Kinase 3057 U/L (10-223)
[2022-02-01 05:58] LABS: Phosphorus 1.5 mg/dL (2.5-5.0); Potassium Redraw 2.9 mmol/L (3.5-5.0)
[2022-02-01 06:03] LABS: ABS Eosinophils 0.1 10^3/ul (0-0.6); ABS Lymphocytes 0.2 10^3/ul (1.0-4.8); ABS Monocytes 0.2 10^3/ul (0-0.8); ABS Neutrophils 5.4 10^3/ul (1.5-7.7); Eosinophil % 1.6 %; Lymphocyte % 2.9 %; Nucleated Red Blood Cells % 0.1
[2022-02-01] MEDS: Thiamine 100 MG/ML 2 ml VIAL 500 MG in NS 0.9% 250 ml 250 ML IV SCH ×3 (06:04→21:27)
[2022-02-01] MEDS: Heparin 5000 UNITS/ML 1 mL VIAL SUBCUT SCH ×4 (06:07→21:19)
[2022-02-01] MEDS: Acetaminophen IV 1 GM/100ML 1,000 MG/100 ML BAG IV PRN ×3 (07:12→23:48)
[2022-02-01] MEDS ORDERED: Potassium Chlor 20 meq TAB.ER PO ONE (07:29)
[2022-02-01] MEDS ORDERED: Magnesium Sulf 4 GM/100 ML IV 4,000 MG/100 ML BAG IVPB ONE (07:29)
[2022-02-01 07:57] LABS: Calcium 8.3 mg/dL (8.6-10.3); eGFR CKD-EPI 109.6 (>60)
[2022-02-01] MEDS: KCL 20 MEQ/100 ML IVPREMIX 20 MEQ/100 ML BAG IV SCH ×5 (09:01→22:11)
[2022-02-01] MEDS: Multivitamins/Minerals TAB PO SCH (09:05)
[2022-02-01] MEDS ORDERED: D5W 1000 ml BAG 1,000 ML IV SCH (10:00)
[2022-02-01] MEDS: Potassium Acid Phos 500 mg TAB PO SCH ×3 (10:12→20:34)
[2022-02-01] MEDS ORDERED: Vancomycin 1,250 MG in NS 0.9% 250 ml 250 ML IVPB SCH (13:00)
[2022-02-01] MEDS: Acyclovir IV 800 MG in NS 0.9% 250 ml 250 ML IVPB SCH (16:44)
[2022-02-01] MEDS: DOXYcycline 100 MG in NS 0.9% 250 ml 250 ML IVPB SCH (16:45)
[2022-02-01 16:52] LABS: Calcium 7.7 mg/dL (8.6-10.3); Phosphorus 1.5 mg/dL (2.5-5.0); Potassium 3.2 mmol/L (3.5-5.0); eGFR CKD-EPI 110.6 (>60)
[2022-02-01 17:18] LABS: HIV 4th Generation Nonreactive (Nonreactive)
[2022-02-01] MEDS ORDERED: Potassium Phosphate IV 15 MMOLE in NS 0.9% 250 ml 250 ML IVPB ONE (17:45)
[2022-02-01] MEDS: Potassium Chloride IV 40 MEQ in D5W 1000 ml BAG 980 ML IVPB SCH (18:25)
[2022-02-02] MEDS ORDERED: Vancomycin 1,250 MG in NS 0.9% 250 ml 250 ML IVPB SCH
[2022-02-02 01:13] LABS: Calcium 7.3 mg/dL (8.6-10.3); Potassium 3.5 mmol/L (3.5-5.0); eGFR CKD-EPI 112.2 (>60)
[2022-02-02] MEDS: Acyclovir IV 800 MG in NS 0.9% 250 ml 250 ML IVPB SCH ×3 (01:15→16:45)
[2022-02-02] MEDS: DOXYcycline 100 MG in NS 0.9% 250 ml 250 ML IVPB SCH ×2 (04:28→16:51)
[2022-02-02] MEDS ORDERED: Vancomycin Trough Check NOTE FOLLOW UP ONE ×2 (04:30→11:30)
[2022-02-02] MEDS: ZOSYN 3.375 GM Q8H per EXTENDED INFUSION IV SCH ×3 (04:35→19:52)
[2022-02-02] MEDS: Potassium Chloride IV 40 MEQ in D5W 1000 ml BAG 980 ML IVPB SCH (04:50)
[2022-02-02 05:33] LABS: ABS Eosinophils 0.4 10^3/ul (0-0.6); ABS Lymphocytes 0.4 10^3/ul (1.0-4.8); ABS Monocytes 0.4 10^3/ul (0-0.8); ABS Neutrophils 4.7 10^3/ul (1.5-7.7); Eosinophil % 6.6 %; Hematocrit 31 % (42-52); Hemoglobin 11.1 g/dL (14.0-18.0); Lymphocyte % 7.2 %; Mean Corpuscular HGB Conc 35 g/dL (31-36); Mean Corpuscular Hemoglobin 36 pg (27-31); Mean Corpuscular Volume 102 fL (80-94); Mean Platelet Volume 9.1 fL (7.4-10.4); Nucleated Red Blood Cells % 0.2; Platelet Count 270 10^3/uL (150-450); Red Blood Count 3.08 10^6 /uL (4.18-5.48); Red Cell Distribution Width 15 % (10-15); White Blood Count 5.9 10^3/uL (3.5-10.8)
[2022-02-02] MEDS: Thiamine 100 MG/ML 2 ml VIAL 500 MG in NS 0.9% 250 ml 250 ML IV SCH ×4 (06:09→21:19)
[2022-02-02] MEDS: Heparin 5000 UNITS/ML 1 mL VIAL SUBCUT SCH ×3 (06:14→21:06)
[2022-02-02 06:31] LABS: Calcium 7.4 mg/dL (8.6-10.3); Magnesium 1.6 mg/dL (1.9-2.7); eGFR CKD-EPI 116.3 (>60)
[2022-02-02 06:34] LABS: Phosphorus 1.7 mg/dL (2.5-5.0); Potassium 3.3 mmol/L (3.5-5.0)
[2022-02-02] MEDS ORDERED: KCL 20 MEQ/100 ML IVPREMIX 20 MEQ/100 ML BAG IV ONE (08:27)
[2022-02-02] MEDS ORDERED: Potassium Phosphate IV 15 MMOLE in NS 0.9% 250 ml 250 ML IVPB ONE (08:27)
[2022-02-02] MEDS ORDERED: Magnesium Sulf 4 GM/100 ML IV 4,000 MG/100 ML BAG IVPB ONE (08:28)
[2022-02-02] MEDS: Multivitamins/Minerals TAB PO SCH (09:59)
[2022-02-02] MEDS: Acetaminophen IV 1 GM/100ML 1,000 MG/100 ML BAG IV PRN (11:40)
[2022-02-02 17:19] LABS: Calcium 7.1 mg/dL (8.6-10.3); Magnesium 2.1 mg/dL (1.9-2.7); Phosphorus 2.5 mg/dL (2.5-5.0); eGFR CKD-EPI 118.3 (>60)
[2022-02-02] MEDS ORDERED: Potassium Chloride LIQUID 20 MEQ/15 ML LIQUID PEG TUBE ONE (17:46)
[2022-02-02] MEDS: fentaNYL 100 mcg/2 ml 50 MCG/ML VIAL IV SLOW PU PRN (17:51)
[2022-02-02] MEDS: KCL 20 MEQ/100 ML IVPREMIX 20 MEQ/100 ML BAG IV SCH ×2 (18:39→21:04)
[2022-02-03] MEDS: Acyclovir IV 800 MG in NS 0.9% 250 ml 250 ML IVPB SCH ×3 (00:52→17:06)
[2022-02-03] MEDS: diazePAM INJ CARPUJECT 5 MG/ML SYRINGE IV PRN ×3 (02:17→21:52)
[2022-02-03] MEDS: DOXYcycline 100 MG in NS 0.9% 250 ml 250 ML IVPB SCH ×2 (04:20→16:33)
[2022-02-03] MEDS: ZOSYN 3.375 GM Q8H per EXTENDED INFUSION IV SCH ×3 (04:24→21:43)
[2022-02-03 04:49] LABS: ABS Eosinophils 0.4 10^3/ul (0-0.6); ABS Lymphocytes 0.6 10^3/ul (1.0-4.8); ABS Monocytes 0.5 10^3/ul (0-0.8); ABS Neutrophils 6.2 10^3/ul (1.5-7.7); Eosinophil % 5.4 %; Hematocrit 33 % (42-52); Hemoglobin 11.6 g/dL (14.0-18.0); Lymphocyte % 7.1 %; Mean Corpuscular HGB Conc 35 g/dL (31-36); Mean Corpuscular Hemoglobin 36 pg (27-31); Mean Corpuscular Volume 102 fL (80-94); Mean Platelet Volume 9.7 fL (7.4-10.4); Nucleated Red Blood Cells % 0.3; Platelet Count 303 10^3/uL (150-450); Red Blood Count 3.25 10^6 /uL (4.18-5.48); Red Cell Distribution Width 15 % (10-15); White Blood Count 7.8 10^3/uL (3.5-10.8)
[2022-02-03] MEDS: Acetaminophen IV 1 GM/100ML 1,000 MG/100 ML BAG IV PRN ×2 (05:13→23:47)
[2022-02-03 05:26] LABS: Calcium 7.3 mg/dL (8.6-10.3); Magnesium 1.6 mg/dL (1.9-2.7); Potassium 3.4 mmol/L (3.5-5.0); eGFR CKD-EPI 117.6 (>60)
[2022-02-03] MEDS: Thiamine 100 MG/ML 2 ml VIAL 500 MG in NS 0.9% 250 ml 250 ML IV SCH ×3 (05:58→21:43)
[2022-02-03] MEDS: Heparin 5000 UNITS/ML 1 mL VIAL SUBCUT SCH ×3 (06:00→21:53)
[2022-02-03] MEDS: fentaNYL 100 mcg/2 ml 50 MCG/ML VIAL IV SLOW PU PRN ×2 (08:14→21:51)
[2022-02-03] MEDS: Multivitamins/Minerals TAB PO SCH (09:14)
[2022-02-03] MEDS ORDERED: Potassium Chloride LIQUID 20 MEQ/15 ML LIQUID PEG TUBE ONE (09:43)
[2022-02-03] MEDS ORDERED: Magnesium Sulf 4 GM/100 ML IV 4,000 MG/100 ML BAG IVPB ONE (11:00)
[2022-02-03] MEDS: guaiFENesin 100 mg/5 ml LIQ unit dose cup NG TUBE PRN ×2 (13:34→21:51)
[2022-02-04] MEDS: diazePAM INJ CARPUJECT 5 MG/ML SYRINGE IV PRN ×3 (00:14→04:21)
[2022-02-04] MEDS: Acyclovir IV 800 MG in NS 0.9% 250 ml 250 ML IVPB SCH ×3 (00:39→17:00)
[2022-02-04] MEDS: fentaNYL 100 mcg/2 ml 50 MCG/ML VIAL IV SLOW PU PRN (02:22)
[2022-02-04] MEDS: DOXYcycline 100 MG in NS 0.9% 250 ml 250 ML IVPB SCH ×2 (04:21→18:17)
[2022-02-04] MEDS: ZOSYN 3.375 GM Q8H per EXTENDED INFUSION IV SCH ×3 (04:22→20:32)
[2022-02-04 05:31] LABS: ABS Eosinophils 0.3 10^3/ul (0-0.6); ABS Lymphocytes 0.7 10^3/ul (1.0-4.8); ABS Monocytes 0.5 10^3/ul (0-0.8); ABS Neutrophils 6.2 10^3/ul (1.5-7.7); ABS Nucleated RBC 0.1 10^3/ul; Eosinophil % 4.3 %; Hematocrit 29 % (42-52); Hemoglobin 9.6 g/dL (14.0-18.0); Lymphocyte % 9.1 %; Mean Corpuscular HGB Conc 34 g/dL (31-36); Mean Corpuscular Hemoglobin 35 pg (27-31); Mean Corpuscular Volume 103 fL (80-94); Mean Platelet Volume 9.6 fL (7.4-10.4); Nucleated Red Blood Cells % 0.7; Platelet Count 293 10^3/uL (150-450); Red Blood Count 2.78 10^6 /uL (4.18-5.48); Red Cell Distribution Width 15 % (10-15); White Blood Count 7.7 10^3/uL (3.5-10.8)
[2022-02-04 05:36] LABS: INR 1.14 (0.89-1.11)
[2022-02-04 05:46] LABS: Magnesium 1.6 mg/dL (1.9-2.7); eGFR CKD-EPI 117.6 (>60)
[2022-02-04] MEDS: Thiamine 100 MG/ML 2 ml VIAL 500 MG in NS 0.9% 250 ml 250 ML IV SCH ×3 (05:47→22:04)
[2022-02-04 05:56] LABS: Potassium 2.5 mmol/L (3.5-5.0)
[2022-02-04] MEDS ORDERED: Magnesium Sulf 4 GM/100 ML IV 4,000 MG/100 ML BAG IVPB ONE (06:00)
[2022-02-04] MEDS: Potassium Chloride LIQUID 20 MEQ/15 ML LIQUID PO SCH ×2 (06:25→13:20)
[2022-02-04 08:50] LABS: Activated Partial Thrombo Time 35.7 seconds (26.0-38.0)
[2022-02-04 10:26] LABS: Phosphorus 2.4 mg/dL (2.5-5.0)
[2022-02-04] MEDS: KCL 20 MEQ/100 ML IVPREMIX 20 MEQ/100 ML BAG IV SCH ×2 (10:45→13:30)
[2022-02-04] MEDS ORDERED: Gadoteridol (CONTRAST) 279.3 MG/ML 10 ML IV ONE (11:26)
[2022-02-04] MEDS: Multivitamins/Minerals TAB PO SCH (13:19)
[2022-02-04] MEDS: Heparin 5000 UNITS/ML 1 mL VIAL SUBCUT SCH ×3 (13:24→21:55)
[2022-02-04 14:15] LABS: C Reactive Protein 107.34 mg/L (<8.01)
[2022-02-04] MEDS: Metoprolol Tartrate 5 mg VIAL 5 ml VIAL (1 mg/ml) IV SCH (18:20)
[2022-02-04] MEDS: Acetaminophen IV 1 GM/100ML 1,000 MG/100 ML BAG IV PRN (19:42)
[2022-02-04 19:53] LABS: Calcium 7.1 mg/dL (8.6-10.3); Magnesium 1.9 mg/dL (1.9-2.7); Potassium 2.9 mmol/L (3.5-5.0); eGFR CKD-EPI 117.6 (>60)
[2022-02-05] MEDS: Metoprolol Tartrate 5 mg VIAL 5 ml VIAL (1 mg/ml) IV SCH ×4 (00:19→17:45)
[2022-02-05] MEDS: Acyclovir IV 800 MG in NS 0.9% 250 ml 250 ML IVPB SCH ×3 (01:16→16:03)
[2022-02-05] MEDS ORDERED: Potassium Phosphate IV 15 MMOLE in NS 0.9% 250 ml 250 ML IVPB ONE (01:39)
[2022-02-05 02:24] LABS: Urine Osmo 434 mOsm/kg (150-1150)
[2022-02-05 04:33] LABS: Hematocrit 28 % (42-52); Hemoglobin 9.6 g/dL (14.0-18.0); Mean Corpuscular HGB Conc 35 g/dL (31-36); Mean Corpuscular Hemoglobin 35 pg (27-31); Mean Corpuscular Volume 103 fL (80-94); Mean Platelet Volume 9.5 fL (7.4-10.4); Platelet Count 330 10^3/uL (150-450); Red Blood Count 2.71 10^6 /uL (4.18-5.48); Red Cell Distribution Width 15 % (10-15); White Blood Count 10.4 10^3/uL (3.5-10.8)
[2022-02-05] MEDS: DOXYcycline 100 MG in NS 0.9% 250 ml 250 ML IVPB SCH ×2 (04:38→16:28)
[2022-02-05] MEDS: ZOSYN 3.375 GM Q8H per EXTENDED INFUSION IV SCH ×3 (04:46→20:21)
[2022-02-05 04:47] LABS: Activated Partial Thrombo Time 37.4 seconds (26.0-38.0)
[2022-02-05 04:49] LABS: ABS Eosinophils 0.3 10^3/ul (0-0.6); ABS Monocytes 0.7 10^3/ul (0-0.8); ABS Neutrophils 8.4 10^3/ul (1.5-7.7); ABS Nucleated RBC 0.1 10^3/ul; Eosinophil % 2.6 %; Lymphocyte % 9.5 %; Nucleated Red Blood Cells % 0.5
[2022-02-05 05:16] LABS: Blood Urea Nitrogen 13 mg/dL (6-24); CO2 Carbon Dioxide 28 mmol/L (22-32); Calcium 7.1 mg/dL (8.6-10.3); Glucose 98 mg/dL (70-100); Magnesium 1.5 mg/dL (1.9-2.7); Phosphorus 2.9 mg/dL (2.5-5.0); Potassium 2.8 mmol/L (3.5-5.0); Rheumatoid Factor < 10 IU/mL (<15); eGFR CKD-EPI 117.6 (>60)
[2022-02-05 05:19] LABS: Anion Gap 4 mmol/L (2-11); Chloride 116 mmol/L (101-111); Sodium 148 mmol/L (135-145)
[2022-02-05] MEDS ORDERED: Magnesium Sulf 4 GM/100 ML IV 4,000 MG/100 ML BAG IVPB ONE ×2 (05:37→08:39)
[2022-02-05] MEDS: Thiamine 100 MG/ML 2 ml VIAL 500 MG in NS 0.9% 250 ml 250 ML IV SCH ×3 (07:50→20:39)
[2022-02-05] MEDS: KCL 20 MEQ/100 ML IVPREMIX 20 MEQ/100 ML BAG IV SCH ×5 (07:50→20:39)
[2022-02-05] MEDS: Heparin 5000 UNITS/ML 1 mL VIAL SUBCUT SCH (07:50)
[2022-02-05 08:32] LABS: INR 1.06 (0.89-1.11)
[2022-02-05] MEDS: Multivitamins/Minerals TAB PO SCH (08:59)
[2022-02-05] MEDS: CMCS: Olopatadine 0.1% OPHTH (NF) 1 DROP BTL BOTH EYES SCH ×2 (11:15→20:40)
[2022-02-05 15:34] LABS: Magnesium 2.7 mg/dL (1.9-2.7); Phosphorus 2.9 mg/dL (2.5-5.0); eGFR CKD-EPI 118.3 (>60)
[2022-02-05] MEDS: Acetaminophen IV 1 GM/100ML 1,000 MG/100 ML BAG IV PRN (20:57)
[2022-02-05 21:27] LABS: Anaplasma phagocytophilum Negative (Negative); B. miyamotoi PCR, B Negative (Negative); Babesia divergens/MO-1 Negative (Negative); Babesia ducani Negative (Negative); Ehrlichia chaffeensis Negative (Negative); Ehrlichia ewingii/canis Negative (Negative); Ehrlichia muris eauclairensis Negative (Negative)
[2022-02-05 23:15] LABS: Adenovirus Result Negative (Negative)
[2022-02-05 23:48] LABS: eGFR CKD-EPI 118.3 (>60)
[2022-02-06] MEDS: Metoprolol Tartrate 5 mg VIAL 5 ml VIAL (1 mg/ml) IV SCH ×5 (01:15→23:07)
[2022-02-06] MEDS ORDERED: D5W IVPB SCH (01:15)
[2022-02-06] MEDS: KCL 20 MEQ/100 ML IVPREMIX 20 MEQ/100 ML BAG IV SCH (01:15)
[2022-02-06] MEDS ORDERED: POTASSIUM CHLORIDE IVPB SCH (01:15)
[2022-02-06] MEDS: Potassium Chloride IV 40 MEQ in D5W 1000 ml BAG 980 ML IVPB SCH ×2 (02:00→17:10)
[2022-02-06] MEDS: Acyclovir IV 800 MG in NS 0.9% 250 ml 250 ML IVPB SCH ×4 (02:00→22:53)
[2022-02-06] MEDS: diazePAM INJ CARPUJECT 5 MG/ML SYRINGE IV PRN (04:31)
[2022-02-06] MEDS: ZOSYN 3.375 GM Q8H per EXTENDED INFUSION IV SCH ×3 (04:37→23:05)
[2022-02-06] MEDS: DOXYcycline 100 MG in NS 0.9% 250 ml 250 ML IVPB SCH ×2 (04:40→17:10)
[2022-02-06 05:10] LABS: Hematocrit 28 % (42-52); Hemoglobin 9.5 g/dL (14.0-18.0); Mean Corpuscular HGB Conc 34 g/dL (31-36); Mean Corpuscular Hemoglobin 35 pg (27-31); Mean Corpuscular Volume 103 fL (80-94); Mean Platelet Volume 9.1 fL (7.4-10.4); Platelet Count 356 10^3/uL (150-450); Red Cell Distribution Width 15 % (10-15); White Blood Count 9.9 10^3/uL (3.5-10.8)
[2022-02-06 05:12] LABS: ABS Eosinophils 0.2 10^3/ul (0-0.6); ABS Lymphocytes 1.2 10^3/ul (1.0-4.8); ABS Monocytes 0.8 10^3/ul (0-0.8); ABS Neutrophils 7.6 10^3/ul (1.5-7.7); ABS Nucleated RBC 0.2 10^3/ul; Eosinophil % 2.3 %; Lymphocyte % 12.3 %; Nucleated Red Blood Cells % 1.8
[2022-02-06 05:32] LABS: Magnesium 1.8 mg/dL (1.9-2.7); Phosphorus 2.1 mg/dL (2.5-5.0); Potassium 3.2 mmol/L (3.5-5.0); eGFR CKD-EPI 121.2 (>60)
[2022-02-06] MEDS: Thiamine 100 MG/ML 2 ml VIAL 500 MG in NS 0.9% 250 ml 250 ML IV SCH ×2 (06:01→13:23)
[2022-02-06] MEDS ORDERED: Potassium Chlor 20 meq TAB.ER PO ONE (06:24)
[2022-02-06] MEDS ORDERED: Magnesium Sulfate 2 gm BAG 2 GM/50 ML BAG IVPB ONE (06:24)
[2022-02-06] MEDS: Multivitamins/Minerals TAB PO SCH ×2 (07:45→08:35)
[2022-02-06] MEDS: CMCS: Olopatadine 0.1% OPHTH (NF) 1 DROP BTL BOTH EYES SCH ×2 (09:20→23:07)
[2022-02-06] MEDS ORDERED: Anidulafungin 200 MG in NS 0.9% 250 ml 200 ML IVPB ONE (12:59)
[2022-02-06] MEDS ORDERED: Succinylcholine 200 mg VIAL 20 mg/ml 10 ml VIAL (200 mg) ONE (16:24)
[2022-02-06] MEDS ORDERED: Propofol 10 mg/ml 100 ML BTL 100 ML ONE (16:24)
[2022-02-06] MEDS ORDERED: Etomidate 40 mg/20 ml (2 MG/ML) 20 ml VIAL (40 mg) ONE (16:40)
[2022-02-06] MEDS: Propofol 10 mg/ml 100 ML BTL 100 ML IV SCH ×2 (16:42→22:38)
[2022-02-06] MEDS ORDERED: diazePAM INJ CARPUJECT 5 MG/ML SYRINGE IV PRN (16:48)
[2022-02-06] MEDS ORDERED: Thiamine 100 MG/ML 2 ml VIAL 100 MG in NS 0.9% 50 ML 50 ML IV SCH (17:00)
[2022-02-06] MEDS ORDERED: Propofol 10 mg/ml 100 ML BTL 100 ML IV SCH (17:00)
[2022-02-06 17:18] LABS: Blood Urea Nitrogen 9 mg/dL (6-24); CO2 Carbon Dioxide 26 mmol/L (22-32); Glucose 112 mg/dL (70-100); Magnesium 1.9 mg/dL (1.9-2.7); eGFR CKD-EPI 121.2 (>60)
[2022-02-06 17:22] LABS: Chloride 114 mmol/L (101-111); Sodium 146 mmol/L (135-145)
[2022-02-06] MEDS: Pantoprazole VIAL 40 MG VIAL IV SCH (17:54)
[2022-02-06 17:57] LABS: Anion Gap 6 mmol/L (2-11)
[2022-02-06] MEDS ORDERED: diazePAM INJ CARPUJECT 5 MG/ML SYRINGE IV SCH (18:00)
[2022-02-06 20:16] LABS: Calcium 6.8 mg/dL (8.6-10.3); Potassium 3.1 mmol/L (3.5-5.0); eGFR CKD-EPI 118.3 (>60)
[2022-02-06] MEDS ORDERED: Gadoteridol (CONTRAST) 279.3 MG/ML 10 ML IV ONE (22:15)
[2022-02-06] MEDS: Chlorhexidine MOUTHWASH 0.12% 15 ML UDC SCH (23:07)
[2022-02-07 03:23] LABS: Hematocrit 28 % (42-52); Hemoglobin 9.1 g/dL (14.0-18.0); Mean Corpuscular HGB Conc 33 g/dL (31-36); Mean Corpuscular Hemoglobin 34 pg (27-31); Mean Corpuscular Volume 103 fL (80-94); Mean Platelet Volume 8.9 fL (7.4-10.4); Platelet Count 341 10^3/uL (150-450); Red Blood Count 2.67 10^6 /uL (4.18-5.48); Red Cell Distribution Width 14 % (10-15); White Blood Count 12.2 10^3/uL (3.5-10.8)
[2022-02-07 03:44] LABS: Calcium 6.9 mg/dL (8.6-10.3); Magnesium 1.6 mg/dL (1.9-2.7); eGFR CKD-EPI 115.7 (>60)
[2022-02-07] MEDS: ZOSYN 3.375 GM Q8H per EXTENDED INFUSION IV SCH ×2 (04:11→14:04)
[2022-02-07] MEDS: DOXYcycline 100 MG in NS 0.9% 250 ml 250 ML IVPB SCH ×2 (04:13→17:08)
[2022-02-07] MEDS ORDERED: Potassium Chloride LIQUID 20 MEQ/15 ML LIQUID PO ONE ×2 (04:18→22:29)
[2022-02-07 04:32] LABS: ABS Basophils 0.2 10^3/ul (0-0.2); ABS Eosinophils 0.3 10^3/ul (0-0.6); ABS Lymphocytes 1.5 10^3/ul (1.0-4.8); ABS Neutrophils 9.4 10^3/ul (1.5-7.7); ABS Nucleated RBC 0.2 10^3/ul; Eosinophil % 2.2 %; Nucleated Red Blood Cells % 1.3
[2022-02-07] MEDS: Thiamine 100 MG/ML 2 ml VIAL 100 MG in NS 0.9% 50 ML 50 ML IV SCH (05:25)
[2022-02-07] MEDS: Metoprolol Tartrate 5 mg VIAL 5 ml VIAL (1 mg/ml) IV SCH ×4 (05:25→23:33)
[2022-02-07] MEDS: Propofol 10 mg/ml 100 ML BTL 100 ML IV SCH ×2 (06:00→11:01)
[2022-02-07] MEDS: Acyclovir IV 800 MG in NS 0.9% 250 ml 250 ML IVPB SCH ×2 (06:00→14:22)
[2022-02-07] MEDS ORDERED: Magnesium Sulf 4 GM/100 ML IV 4,000 MG/100 ML BAG IVPB ONE (06:14)
[2022-02-07] MEDS: Potassium Chloride IV 40 MEQ in D5W 1000 ml BAG 980 ML IVPB SCH ×3 (07:00→17:55)
[2022-02-07] MEDS ORDERED: fentaNYL 100 mcg/2 ml 50 MCG/ML VIAL ONE (07:39)
[2022-02-07] MEDS ORDERED: fentaNYL 100 mcg/2 ml 50 MCG/ML VIAL IV SLOW PU ONE (07:42)
[2022-02-07] MEDS ORDERED: fentaNYL 100 mcg/2 ml 50 MCG/ML VIAL IV SLOW PU PRN (08:19)
[2022-02-07] MEDS: Multivitamins ADULT w/MIN LIQ 15 ML UDC PO SCH (08:35)
[2022-02-07] MEDS: Chlorhexidine MOUTHWASH 0.12% 15 ML UDC SCH ×3 (08:35→21:05)
[2022-02-07] MEDS: Pantoprazole VIAL 40 MG VIAL IV SCH (08:37)
[2022-02-07] MEDS: CMCS: Olopatadine 0.1% OPHTH (NF) 1 DROP BTL BOTH EYES SCH ×2 (08:37→21:06)
[2022-02-07 10:40] LABS: Body Fluid Source Cerebral Spinal
[2022-02-07 10:57] LABS: CSF Glucose 83 mg/dL (40-70)
[2022-02-07 11:19] LABS: Body Fluid Appearance Clear; Body Fluid Color Colorless; Body Fluid WBC 1 /mcL; CSF Tube # 4
[2022-02-07 13:36] LABS: Body Fluid Mono 14 %; Body Fluid Total Cells Counted 7
[2022-02-07] MEDS: Anidulafungin 100 MG in NS 0.9% 100 ml BAG 100 ML IVPB SCH (14:31)
[2022-02-07] MEDS: Heparin 5000 UNITS/ML 1 mL VIAL SUBCUT SCH ×2 (17:09→21:05)
[2022-02-07] MEDS: Acetaminophen IV 1 GM/100ML 1,000 MG/100 ML BAG IV PRN (18:41)
[2022-02-07 22:16] LABS: Potassium 3.1 mmol/L (3.5-5.0); eGFR CKD-EPI 120.4 (>60)
[2022-02-07 22:23] LABS: Calcium 6.3 mg/dL (8.6-10.3)
[2022-02-07 22:43] LABS: Magnesium 1.8 mg/dL (1.9-2.7)
[2022-02-07] MEDS ORDERED: Magnesium Sulfate 2 gm BAG 2 GM/50 ML BAG IVPB ONE (23:08)
[2022-02-08] MEDS: Potassium Chloride IV 40 MEQ in D5W 1000 ml BAG 980 ML IVPB SCH ×3 (00:05→17:06)
[2022-02-08] MEDS: DOXYcycline 100 MG in NS 0.9% 250 ml 250 ML IVPB SCH ×2 (04:58→17:34)
[2022-02-08 05:25] LABS: Hematocrit 27 % (42-52); Hemoglobin 9.1 g/dL (14.0-18.0); Mean Corpuscular HGB Conc 34 g/dL (31-36); Mean Corpuscular Hemoglobin 35 pg (27-31); Mean Corpuscular Volume 104 fL (80-94); Platelet Count 351 10^3/uL (150-450); Red Blood Count 2.58 10^6 /uL (4.18-5.48); Red Cell Distribution Width 15 % (10-15); White Blood Count 12.5 10^3/uL (3.5-10.8)
[2022-02-08] MEDS: Thiamine 100 MG/ML 2 ml VIAL 100 MG in NS 0.9% 50 ML 50 ML IV SCH (05:29)
[2022-02-08] MEDS: Metoprolol Tartrate 5 mg VIAL 5 ml VIAL (1 mg/ml) IV SCH ×2 (05:32→12:29)
[2022-02-08] MEDS: Heparin 5000 UNITS/ML 1 mL VIAL SUBCUT SCH ×3 (05:36→20:36)
[2022-02-08 06:03] LABS: Magnesium 1.9 mg/dL (1.9-2.7); Phosphorus 1.6 mg/dL (2.5-5.0); Potassium 3.5 mmol/L (3.5-5.0)
[2022-02-08] MEDS ORDERED: Potassium Phosphate IV 15 MMOLE in NS 0.9% 250 ml 250 ML IVPB ONE (06:37)
[2022-02-08] MEDS: Multivitamins ADULT w/MIN LIQ 15 ML UDC PO SCH (07:08)
[2022-02-08] MEDS: Pantoprazole VIAL 40 MG VIAL IV SCH (07:08)
[2022-02-08] MEDS: Chlorhexidine MOUTHWASH 0.12% 15 ML UDC SCH (07:09)
[2022-02-08] MEDS: CMCS: Olopatadine 0.1% OPHTH (NF) 1 DROP BTL BOTH EYES SCH ×2 (07:09→20:36)
[2022-02-08 08:09] LABS: ABS Basophils 0.2 10^3/ul (0-0.2); ABS Eosinophils 0.2 10^3/ul (0-0.6); ABS Lymphocytes 2.3 10^3/ul (1.0-4.8); ABS Monocytes 1.1 10^3/ul (0-0.8); ABS Neutrophils 8.7 10^3/ul (1.5-7.7); ABS Nucleated RBC 0.1 10^3/ul; Eosinophil % 1.8 %; Lymphocyte % 18.3 %
[2022-02-08] MEDS: Acetaminophen IV 1 GM/100ML 1,000 MG/100 ML BAG IV PRN (09:01)
[2022-02-08] MEDS: Anidulafungin 100 MG in NS 0.9% 100 ml BAG 100 ML IVPB SCH (12:29)
[2022-02-08] MEDS ORDERED: diazePAM INJ CARPUJECT 5 MG/ML SYRINGE IV SCH (14:00)
[2022-02-08] MEDS ORDERED: diazePAM INJ CARPUJECT 5 MG/ML SYRINGE IV PRN (14:02)
[2022-02-08 14:33] LABS: Urine Appearance Clear; Urine Bilirubin Negative (Negative); Urine Blood Negative (Negative); Urine Color Yellow; Urine Glucose Negative (Negative); Urine Ketones Negative (Negative); Urine Nitrite Negative (Negative); Urine Protein Trace (Negative); Urine Urobilinogen 0.2 (Negative) (Negative); Urine pH 6.5 (5.0-9.0)
[2022-02-08 14:41] LABS: Urine Bacteria Absent (Absent); Urine Red Blood Cell Trace(0-2/hpf) (Absent); Urine White Blood Cell Trace(0-5/hpf) (Absent)
[2022-02-09] MEDS: DOXYcycline 100 MG in NS 0.9% 250 ml 250 ML IVPB SCH (02:38)
[2022-02-09 04:41] LABS: Hematocrit 26 % (42-52); Mean Corpuscular HGB Conc 34 g/dL (31-36); Mean Corpuscular Hemoglobin 36 pg (27-31); Mean Corpuscular Volume 105 fL (80-94); Mean Platelet Volume 9.1 fL (7.4-10.4); Platelet Count 349 10^3/uL (150-450); Red Cell Distribution Width 15 % (10-15); White Blood Count 12.7 10^3/uL (3.5-10.8)
[2022-02-09 04:43] LABS: ABS Basophils 0.2 10^3/ul (0-0.2); ABS Eosinophils 0.2 10^3/ul (0-0.6); ABS Lymphocytes 2.4 10^3/ul (1.0-4.8); ABS Monocytes 1.1 10^3/ul (0-0.8); ABS Neutrophils 8.9 10^3/ul (1.5-7.7); Eosinophil % 1.7 %; Lymphocyte % 18.7 %; Nucleated Red Blood Cells % 0.2
[2022-02-09 05:30] LABS: Magnesium 1.3 mg/dL (1.9-2.7); Potassium 3.4 mmol/L (3.5-5.0)
[2022-02-09] MEDS ORDERED: Magnesium Sulfate 2 gm BAG 2 GM/50 ML BAG IVPB ONE (06:19)
[2022-02-09] MEDS: Thiamine 100 MG/ML 2 ml VIAL 100 MG in NS 0.9% 50 ML 50 ML IV SCH (06:21)
[2022-02-09] MEDS: Heparin 5000 UNITS/ML 1 mL VIAL SUBCUT SCH ×3 (06:25→20:50)
[2022-02-09] MEDS ORDERED: Magnesium Sulfate IV 3 GM in NS 0.9% 100 ml BAG 100 ML IVPB ONE (07:26)
[2022-02-09] MEDS: Multivitamins ADULT w/MIN LIQ 15 ML UDC PO SCH (07:32)
[2022-02-09] MEDS: Pantoprazole VIAL 40 MG VIAL IV SCH (07:32)
[2022-02-09] MEDS: KCL 20 MEQ/100 ML IVPREMIX 20 MEQ/100 ML BAG IV SCH ×2 (07:32→09:33)
[2022-02-09] MEDS: CMCS: Olopatadine 0.1% OPHTH (NF) 1 DROP BTL BOTH EYES SCH ×2 (08:04→21:14)
[2022-02-09] MEDS ORDERED: Cyanocobalamin INJ 1,000 MCG/ML VIAL 1 ML VIAL IM ONE (09:04)
[2022-02-09] MEDS: Anidulafungin 100 MG in NS 0.9% 100 ml BAG 100 ML IVPB SCH (12:51)
[2022-02-10] MEDS: Acetaminophen IV 1 GM/100ML 1,000 MG/100 ML BAG IV PRN (00:18)
[2022-02-10 05:17] LABS: Activated Partial Thrombo Time 35.3 seconds (26.0-38.0); INR 1.03 (0.89-1.11)
[2022-02-10] MEDS: Heparin 5000 UNITS/ML 1 mL VIAL SUBCUT SCH ×3 (05:20→21:16)
[2022-02-10] MEDS: Thiamine 100 MG/ML 2 ml VIAL 100 MG in NS 0.9% 50 ML 50 ML IV SCH (05:20)
[2022-02-10 05:30] LABS: Calcium 7.7 mg/dL (8.6-10.3); Magnesium 1.8 mg/dL (1.9-2.7); Phosphorus 3.4 mg/dL (2.5-5.0); Potassium 3.7 mmol/L (3.5-5.0)
[2022-02-10 05:34] LABS: ABS Basophils 0.1 10^3/ul (0-0.2); ABS Eosinophils 0.2 10^3/ul (0-0.6); ABS Lymphocytes 2.2 10^3/ul (1.0-4.8); ABS Monocytes 1.1 10^3/ul (0-0.8); ABS Neutrophils 7.9 10^3/ul (1.5-7.7); Eosinophil % 1.9 %; Hematocrit 31 % (42-52); Hemoglobin 10.3 g/dL (14.0-18.0); Mean Corpuscular HGB Conc 34 g/dL (31-36); Mean Corpuscular Hemoglobin 36 pg (27-31); Mean Corpuscular Volume 107 fL (80-94); Mean Platelet Volume 9.1 fL (7.4-10.4); Nucleated Red Blood Cells % 0.1; Platelet Count 406 10^3/uL (150-450); Red Blood Count 2.88 10^6 /uL (4.18-5.48); Red Cell Distribution Width 15 % (10-15); White Blood Count 11.5 10^3/uL (3.5-10.8)
[2022-02-10] MEDS ORDERED: Magnesium Sulfate 2 gm BAG 2 GM/50 ML BAG IVPB ONE (07:44)
[2022-02-10] MEDS ORDERED: Potassium Chloride LIQUID 20 MEQ/15 ML LIQUID PO ONE (07:45)
[2022-02-10] MEDS: Pantoprazole VIAL 40 MG VIAL IV SCH (09:33)
[2022-02-10] MEDS: Multivitamins ADULT w/MIN LIQ 15 ML UDC PO SCH (09:33)
[2022-02-10] MEDS: CMCS: Olopatadine 0.1% OPHTH (NF) 1 DROP BTL BOTH EYES SCH ×2 (09:33→21:16)
[2022-02-10] MEDS: Anidulafungin 100 MG in NS 0.9% 100 ml BAG 100 ML IVPB SCH (13:52)
[2022-02-10 16:22] LABS: HSV 1 PCR, CSF Negative (Negative); HSV 2 PCR, CSF Negative (Negative)
[2022-02-11 03:13] LABS: Hematocrit 27 % (42-52); Hemoglobin 9.5 g/dL (14.0-18.0); Mean Corpuscular HGB Conc 35 g/dL (31-36); Mean Corpuscular Hemoglobin 37 pg (27-31); Mean Corpuscular Volume 106 fL (80-94); Mean Platelet Volume 8.6 fL (7.4-10.4); Platelet Count 406 10^3/uL (150-450); Red Blood Count 2.59 10^6 /uL (4.18-5.48); Red Cell Distribution Width 16 % (10-15); White Blood Count 9.6 10^3/uL (3.5-10.8)
[2022-02-11 03:39] LABS: ABS Eosinophils 0.2 10^3/ul (0-0.6); ABS Lymphocytes 1.7 10^3/ul (1.0-4.8); ABS Monocytes 1.1 10^3/ul (0-0.8); ABS Neutrophils 6.6 10^3/ul (1.5-7.7); ABS Nucleated RBC 0.1 10^3/ul; Eosinophil % 2.3 %; Lymphocyte % 17.4 %; Nucleated Red Blood Cells % 0.5
[2022-02-11 03:59] LABS: Calcium 7.8 mg/dL (8.6-10.3); Magnesium 1.6 mg/dL (1.9-2.7); Phosphorus 3.7 mg/dL (2.5-5.0); Potassium 3.6 mmol/L (3.5-5.0); eGFR CKD-EPI 130.1 (>60)
[2022-02-11] MEDS: Thiamine 100 MG/ML 2 ml VIAL 100 MG in NS 0.9% 50 ML 50 ML IV SCH (04:59)
[2022-02-11] MEDS: Heparin 5000 UNITS/ML 1 mL VIAL SUBCUT SCH ×3 (05:14→20:07)
[2022-02-11] MEDS ORDERED: Magnesium Sulfate 2 gm BAG 2 GM/50 ML BAG IVPB ONE (06:00)
[2022-02-11] MEDS: Multivitamins ADULT w/MIN LIQ 15 ML UDC PO SCH (08:57)
[2022-02-11] MEDS: CMCS: Olopatadine 0.1% OPHTH (NF) 1 DROP BTL BOTH EYES SCH ×2 (08:57→20:13)
[2022-02-11] MEDS: Famotidine IV 10 MG/ML 2 ml VIAL (20 mg) IV SLOW PU SCH ×2 (11:31→20:06)
[2022-02-11] MEDS: Anidulafungin 100 MG in NS 0.9% 100 ml BAG 100 ML IVPB SCH (14:29)
[2022-02-12] MEDS ORDERED: Potassium Chloride LIQUID 20 MEQ/15 ML LIQUID PO ONE (03:23)
[2022-02-12] MEDS ORDERED: Magnesium Sulf 4 GM/100 ML IV 4,000 MG/100 ML BAG IVPB ONE (03:23)
[2022-02-12 04:59] LABS: Hematocrit 28 % (42-52); Hemoglobin 9.6 g/dL (14.0-18.0); Mean Corpuscular HGB Conc 34 g/dL (31-36); Mean Corpuscular Hemoglobin 36 pg (27-31); Mean Corpuscular Volume 106 fL (80-94); Mean Platelet Volume 9.2 fL (7.4-10.4); Platelet Count 404 10^3/uL (150-450); Red Blood Count 2.66 10^6 /uL (4.18-5.48); Red Cell Distribution Width 17 % (10-15); White Blood Count 8.3 10^3/uL (3.5-10.8)
[2022-02-12 05:05] LABS: Calcium 7.9 mg/dL (8.6-10.3); Magnesium 1.6 mg/dL (1.9-2.7); Phosphorus 3.8 mg/dL (2.5-5.0); Potassium 3.7 mmol/L (3.5-5.0); eGFR CKD-EPI 131.1 (>60)
[2022-02-12] MEDS: Heparin 5000 UNITS/ML 1 mL VIAL SUBCUT SCH ×3 (05:19→23:17)
[2022-02-12] MEDS: Thiamine 100 MG/ML 2 ml VIAL 100 MG in NS 0.9% 50 ML 50 ML IV SCH (05:19)
[2022-02-12 05:48] LABS: ABS Eosinophils 0.2 10^3/ul (0-0.6); ABS Lymphocytes 1.6 10^3/ul (1.0-4.8); ABS Monocytes 1.1 10^3/ul (0-0.8); ABS Neutrophils 5.4 10^3/ul (1.5-7.7); Eosinophil % 2.4 %; Lymphocyte % 19.2 %; Nucleated Red Blood Cells % 0.4
[2022-02-12] MEDS: Multivitamins ADULT w/MIN LIQ 15 ML UDC PO SCH (09:12)
[2022-02-12] MEDS: Famotidine IV 10 MG/ML 2 ml VIAL (20 mg) IV SLOW PU SCH ×2 (09:12→23:02)
[2022-02-12] MEDS: CMCS: Olopatadine 0.1% OPHTH (NF) 1 DROP BTL BOTH EYES SCH ×2 (10:38→23:15)
[2022-02-12] MEDS: Anidulafungin 100 MG in NS 0.9% 100 ml BAG 100 ML IVPB SCH (15:31)
[2022-02-13 05:39] LABS: ABS Basophils 0.1 10^3/ul (0-0.2); ABS Eosinophils 0.2 10^3/ul (0-0.6); ABS Lymphocytes 1.2 10^3/ul (1.0-4.8); ABS Monocytes 1.1 10^3/ul (0-0.8); ABS Neutrophils 4.1 10^3/ul (1.5-7.7); Eosinophil % 3.1 %; Hematocrit 30 % (42-52); Hemoglobin 10.4 g/dL (14.0-18.0); Lymphocyte % 17.6 %; Mean Corpuscular HGB Conc 34 g/dL (31-36); Mean Corpuscular Hemoglobin 37 pg (27-31); Mean Corpuscular Volume 107 fL (80-94); Mean Platelet Volume 8.8 fL (7.4-10.4); Nucleated Red Blood Cells % 0.2; Platelet Count 390 10^3/uL (150-450); Red Blood Count 2.84 10^6 /uL (4.18-5.48); Red Cell Distribution Width 17 % (10-15); White Blood Count 6.8 10^3/uL (3.5-10.8)
[2022-02-13 05:51] LABS: Calcium 8.4 mg/dL (8.6-10.3); Magnesium 1.7 mg/dL (1.9-2.7); Potassium 3.9 mmol/L (3.5-5.0); eGFR CKD-EPI 125.3 (>60)
[2022-02-13] MEDS: Thiamine 100 MG/ML 2 ml VIAL 100 MG in NS 0.9% 50 ML 50 ML IV SCH (06:01)
[2022-02-13] MEDS: Heparin 5000 UNITS/ML 1 mL VIAL SUBCUT SCH ×3 (06:06→22:25)
[2022-02-13] MEDS ORDERED: Magnesium Sulfate IV 3 GM in NS 0.9% 100 ml BAG 100 ML IVPB ONE (09:00)
[2022-02-13] MEDS: Famotidine IV 10 MG/ML 2 ml VIAL (20 mg) IV SLOW PU SCH ×2 (09:44→22:26)
[2022-02-13] MEDS: CMCS: Olopatadine 0.1% OPHTH (NF) 1 DROP BTL BOTH EYES SCH ×2 (09:45→22:26)
[2022-02-13] MEDS: Multivitamins ADULT w/MIN LIQ 15 ML UDC PO SCH (09:51)
[2022-02-14] MEDS: Thiamine 100 MG/ML 2 ml VIAL 100 MG in NS 0.9% 50 ML 50 ML IV SCH (06:13)
[2022-02-14] MEDS: Heparin 5000 UNITS/ML 1 mL VIAL SUBCUT SCH ×3 (06:16→21:20)
[2022-02-14 09:24] LABS: Calcium 8.7 mg/dL (8.6-10.3); Magnesium 1.8 mg/dL (1.9-2.7); Potassium 4.1 mmol/L (3.5-5.0); eGFR CKD-EPI 121.2 (>60)
[2022-02-14] MEDS: Famotidine IV 10 MG/ML 2 ml VIAL (20 mg) IV SLOW PU SCH ×2 (10:11→21:22)
[2022-02-14] MEDS: CMCS: Olopatadine 0.1% OPHTH (NF) 1 DROP BTL BOTH EYES SCH ×2 (10:11→21:19)
[2022-02-14 10:13] LABS: AGNA-1, CSF Negative titer (<1:2); Amphiphysin Ab, CSF Negative titer (<1:2); CRMP-5-IgG, CSF Negative titer (<1:2); PCA-1, CSF Negative titer (<1:2); PCA-2, CSF Negative titer (<1:2); PCA-Tr, CSF Negative titer (<1:2)
[2022-02-14] MEDS: Multivitamins ADULT w/MIN LIQ 15 ML UDC PO SCH (11:08)
[2022-02-14] MEDS ORDERED: Magnesium Sulfate 2 gm BAG 2 GM/50 ML BAG IVPB ONE (12:21)
[2022-02-15 05:32] LABS: ABS Basophils 0.2 10^3/ul (0-0.2); ABS Eosinophils 0.2 10^3/ul (0-0.6); ABS Lymphocytes 1.6 10^3/ul (1.0-4.8); ABS Monocytes 1.3 10^3/ul (0-0.8); ABS Neutrophils 3.3 10^3/ul (1.5-7.7); Eosinophil % 3.1 %; Hematocrit 32 % (42-52); Hemoglobin 11.1 g/dL (14.0-18.0); Lymphocyte % 24.4 %; Mean Corpuscular HGB Conc 35 g/dL (31-36); Mean Corpuscular Hemoglobin 37 pg (27-31); Mean Corpuscular Volume 107 fL (80-94); Mean Platelet Volume 8.5 fL (7.4-10.4); Nucleated Red Blood Cells % 0.1; Platelet Count 362 10^3/uL (150-450); Red Blood Count 2.97 10^6 /uL (4.18-5.48); Red Cell Distribution Width 17 % (10-15); White Blood Count 6.6 10^3/uL (3.5-10.8)
[2022-02-15] MEDS: Thiamine 100 MG/ML 2 ml VIAL 100 MG in NS 0.9% 50 ML 50 ML IV SCH (05:39)
[2022-02-15 06:03] LABS: Magnesium 1.7 mg/dL (1.9-2.7); Potassium 4.1 mmol/L (3.5-5.0)
[2022-02-15] MEDS: Heparin 5000 UNITS/ML 1 mL VIAL SUBCUT SCH ×3 (06:22→21:07)
[2022-02-15] MEDS ORDERED: Magnesium Sulfate IV 3 GM in NS 0.9% 100 ml BAG 100 ML IVPB ONE (07:01)
[2022-02-15] MEDS ORDERED: Magnesium Sulfate 2 gm BAG 2 GM/50 ML BAG IVPB ONE ×2 (07:15→09:00)
[2022-02-15] MEDS: CMCS: Olopatadine 0.1% OPHTH (NF) 1 DROP BTL BOTH EYES SCH ×2 (10:00→21:04)
[2022-02-15] MEDS: Famotidine IV 10 MG/ML 2 ml VIAL (20 mg) IV SLOW PU SCH ×2 (10:13→21:09)
[2022-02-15] MEDS: Multivitamins ADULT w/MIN LIQ 15 ML UDC PO SCH (10:31)
[2022-02-15] MEDS ORDERED: COVID VACC, MONOVAL PFIZER-TRIS 30 MCG/0.3 ML SYR IM ONE (16:00)
[2022-02-16] MEDS: Thiamine 100 MG/ML 2 ml VIAL 100 MG in NS 0.9% 50 ML 50 ML IV SCH (05:14)
[2022-02-16] MEDS: Heparin 5000 UNITS/ML 1 mL VIAL SUBCUT SCH ×3 (05:21→20:30)
[2022-02-16 06:32] LABS: Hematocrit 34 % (42-52); Mean Corpuscular HGB Conc 33 g/dL (31-36); Mean Corpuscular Hemoglobin 35 pg (27-31); Mean Corpuscular Volume 108 fL (80-94); Mean Platelet Volume 8.8 fL (7.4-10.4); Platelet Count 350 10^3/uL (150-450); Red Blood Count 3.12 10^6 /uL (4.18-5.48); Red Cell Distribution Width 17 % (10-15)
[2022-02-16 06:43] LABS: Magnesium 1.8 mg/dL (1.9-2.7); Phosphorus 4.8 mg/dL (2.5-5.0); Potassium 4.1 mmol/L (3.5-5.0); eGFR CKD-EPI 115.7 (>60)
[2022-02-16 07:02] LABS: Polychromasia 1+; RBC Morphology Normal (Normal)
[2022-02-16 07:03] LABS: ABS Basophils 0.1 10^3/ul (0-0.2); ABS Eosinophils 0.4 10^3/ul (0-0.6); ABS Lymphocytes 1.8 10^3/ul (1.0-4.8); ABS Monocytes 1.5 10^3/ul (0-0.8); ABS Neutrophils 3.2 10^3/ul (1.5-7.7); Eosinophil % 5.3 %; Lymphocyte % 26.3 %
[2022-02-16] MEDS ORDERED: Magnesium Sulfate IV 3 GM in NS 0.9% 100 ml BAG 100 ML IVPB ONE (07:35)
[2022-02-16] MEDS: CMCS: Olopatadine 0.1% OPHTH (NF) 1 DROP BTL BOTH EYES SCH ×2 (08:12→20:35)
[2022-02-16] MEDS: Multivitamins ADULT w/MIN LIQ 15 ML UDC PO SCH ×2 (08:13→11:34)
[2022-02-16] MEDS: Famotidine IV 10 MG/ML 2 ml VIAL (20 mg) IV SLOW PU SCH ×4 (08:13→20:33)
[2022-02-16 08:21] LABS: TSH Ultra Thyroid Stim Horm 2.84 mcIU/mL (0.34-5.60)
[2022-02-17] MEDS: Thiamine 100 MG/ML 2 ml VIAL 100 MG in NS 0.9% 50 ML 50 ML IV SCH (05:56)
[2022-02-17] MEDS: Heparin 5000 UNITS/ML 1 mL VIAL SUBCUT SCH ×3 (05:56→22:30)
[2022-02-17 06:26] LABS: ABS Basophils 0.2 10^3/ul (0-0.2); ABS Eosinophils 0.4 10^3/ul (0-0.6); ABS Lymphocytes 1.8 10^3/ul (1.0-4.8); ABS Monocytes 1.2 10^3/ul (0-0.8); ABS Neutrophils 2.6 10^3/ul (1.5-7.7); Eosinophil % 6.1 %; Hematocrit 33 % (42-52); Hemoglobin 11.1 g/dL (14.0-18.0); Lymphocyte % 28.9 %; Mean Corpuscular HGB Conc 34 g/dL (31-36); Mean Corpuscular Hemoglobin 36 pg (27-31); Mean Corpuscular Volume 107 fL (80-94); Mean Platelet Volume 8.5 fL (7.4-10.4); Nucleated Red Blood Cells % 0.1; Platelet Count 330 10^3/uL (150-450); Red Blood Count 3.04 10^6 /uL (4.18-5.48); Red Cell Distribution Width 16 % (10-15); White Blood Count 6.1 10^3/uL (3.5-10.8)
[2022-02-17 06:52] LABS: Calcium 9.2 mg/dL (8.6-10.3); Magnesium 1.8 mg/dL (1.9-2.7); Phosphorus 5.1 mg/dL (2.5-5.0); eGFR CKD-EPI 119.7 (>60)
[2022-02-17] MEDS ORDERED: Magnesium Sulfate 2 gm BAG 2 GM/50 ML BAG IVPB ONE (07:00)
[2022-02-17] MEDS: CMCS: Olopatadine 0.1% OPHTH (NF) 1 DROP BTL BOTH EYES SCH ×2 (07:47→19:32)
[2022-02-17] MEDS: Multivitamins ADULT w/MIN LIQ 15 ML UDC PO SCH (07:47)
[2022-02-17] MEDS: Famotidine IV 10 MG/ML 2 ml VIAL (20 mg) IV SLOW PU SCH ×2 (07:48→19:32)
[2022-02-17 10:10] LABS: Albumin/Globulin Ratio 0.8 (1-3); Direct Bilirubin 0.2 mg/dL (0.03-0.18); Globulin 3.6 g/dL (2-4); Indirect Bilirubin 0.4 mg/dL (0.3-1.0); Total Bilirubin 0.6 mg/dL (0.2-1.0); Total Protein 6.6 g/dL (6.4-8.9)
[2022-02-17] MEDS ORDERED: Ondansetron 4 mg VIAL 2 MG/ML 2 ml VIAL IV PRN (19:10)
[2022-02-18] MEDS: Heparin 5000 UNITS/ML 1 mL VIAL SUBCUT SCH ×2 (05:12→14:06)
[2022-02-18] MEDS: Thiamine 100 MG/ML 2 ml VIAL 100 MG in NS 0.9% 50 ML 50 ML IV SCH (05:13)
[2022-02-18] MEDS ORDERED: Magnesium Sulfate 2 gm BAG 2 GM/50 ML BAG IVPB ONE (07:43)
[2022-02-18 07:46] LABS: Hematocrit 32 % (42-52); Hemoglobin 10.8 g/dL (14.0-18.0); Mean Corpuscular HGB Conc 34 g/dL (31-36); Mean Corpuscular Hemoglobin 36 pg (27-31); Mean Corpuscular Volume 106 fL (80-94); Mean Platelet Volume 8.4 fL (7.4-10.4); Platelet Count 322 10^3/uL (150-450); Red Cell Distribution Width 16 % (10-15)
[2022-02-18 08:16] LABS: Albumin 2.9 g/dL (3.2-5.2); Albumin/Globulin Ratio 0.8 (1-3); Calcium 9.4 mg/dL (8.6-10.3); Globulin 3.7 g/dL (2-4); Magnesium 1.6 mg/dL (1.9-2.7); Potassium 4.3 mmol/L (3.5-5.0); Total Bilirubin 0.6 mg/dL (0.2-1.0); Total Protein 6.6 g/dL (6.4-8.9)
[2022-02-18] MEDS: CMCS: Olopatadine 0.1% OPHTH (NF) 1 DROP BTL BOTH EYES SCH ×2 (09:04→21:38)
[2022-02-18] MEDS: Famotidine IV 10 MG/ML 2 ml VIAL (20 mg) IV SLOW PU SCH ×2 (09:05→21:34)
[2022-02-18] MEDS: Multivitamins ADULT w/MIN LIQ 15 ML UDC PO SCH (09:08)
[2022-02-18] MEDS: Enoxaparin 40 MG/0.4 ML SYR SUBCUT SCH (21:39)
[2022-02-19] MEDS: Thiamine 100 MG/ML 2 ml VIAL 100 MG in NS 0.9% 50 ML 50 ML IV SCH (05:31)
[2022-02-19] MEDS: CMCS: Olopatadine 0.1% OPHTH (NF) 1 DROP BTL BOTH EYES SCH ×2 (10:14→20:42)
[2022-02-19] MEDS: Multivitamins ADULT w/MIN LIQ 15 ML UDC PO SCH (10:14)
[2022-02-19] MEDS: Famotidine IV 10 MG/ML 2 ml VIAL (20 mg) IV SLOW PU SCH ×3 (10:16→20:43)
[2022-02-19] MEDS ORDERED: Magnesium Sulf 4 GM/100 ML IV 4,000 MG/100 ML BAG IVPB ONE (10:39)
[2022-02-19 15:14] LABS: CSF West Nile Virus IgG Ab Negative (Negative); CSF West Nile Virus IgM Ab Negative (Negative)
[2022-02-20] MEDS: Enoxaparin 40 MG/0.4 ML SYR SUBCUT SCH ×2 (00:29→22:39)
[2022-02-20] MEDS: Thiamine 100 MG/ML 2 ml VIAL 100 MG in NS 0.9% 50 ML 50 ML IV SCH (05:29)
[2022-02-20] MEDS: CMCS: Olopatadine 0.1% OPHTH (NF) 1 DROP BTL BOTH EYES SCH ×2 (09:41→22:42)
[2022-02-20] MEDS: Famotidine IV 10 MG/ML 2 ml VIAL (20 mg) IV SLOW PU SCH ×2 (09:43→22:36)
[2022-02-20] MEDS: Multivitamins ADULT w/MIN LIQ 15 ML UDC PO SCH (09:46)
[2022-02-20] MEDS ORDERED: Magnesium Sulfate IV 3 GM in NS 0.9% 100 ml BAG 100 ML IVPB ONE (13:15)
[2022-02-21] MEDS: Thiamine 100 MG/ML 2 ml VIAL 100 MG in NS 0.9% 50 ML 50 ML IV SCH (05:27)
[2022-02-21] MEDS ORDERED: Magnesium Sulfate IV 3 GM in NS 0.9% 100 ml BAG 100 ML IVPB ONE (07:32)
[2022-02-21] MEDS: Famotidine IV 10 MG/ML 2 ml VIAL (20 mg) IV SLOW PU SCH ×2 (08:18→21:13)
[2022-02-21] MEDS: CMCS: Olopatadine 0.1% OPHTH (NF) 1 DROP BTL BOTH EYES SCH ×2 (08:21→21:23)
[2022-02-21] MEDS: Multivitamins ADULT w/MIN LIQ 15 ML UDC PO SCH (08:23)
[2022-02-21] MEDS: Enoxaparin 40 MG/0.4 ML SYR SUBCUT SCH (21:13)
[2022-02-22] MEDS: Thiamine 100 MG/ML 2 ml VIAL 100 MG in NS 0.9% 50 ML 50 ML IV SCH (05:27)
[2022-02-22] MEDS: Multivitamins ADULT w/MIN LIQ 15 ML UDC PO SCH (09:45)
[2022-02-22] MEDS: CMCS: Olopatadine 0.1% OPHTH (NF) 1 DROP BTL BOTH EYES SCH ×2 (09:46→21:57)
[2022-02-22] MEDS: Famotidine IV 10 MG/ML 2 ml VIAL (20 mg) IV SLOW PU SCH ×2 (09:47→20:57)
[2022-02-22] MEDS ORDERED: Magnesium Sulfate IV 3 GM in NS 0.9% 100 ml BAG 100 ML IVPB ONE (10:06)
[2022-02-22] MEDS ORDERED: Magnesium Sulfate 2 GM IV (Premix) IVPB ONE (10:30)
[2022-02-22] MEDS ORDERED: Magnesium Sulfate 1 GM IV 1 GM/100 ML BAG IV ONE (11:30)
[2022-02-22] MEDS: Enoxaparin 40 MG/0.4 ML SYR SUBCUT SCH (20:56)
[2022-02-23] MEDS: Thiamine 100 MG/ML 2 ml VIAL 100 MG in NS 0.9% 50 ML 50 ML IV SCH (05:16)
[2022-02-23] MEDS: Multivitamins ADULT w/MIN LIQ 15 ML UDC PO SCH (09:09)
[2022-02-23] MEDS: CMCS: Olopatadine 0.1% OPHTH (NF) 1 DROP BTL BOTH EYES SCH ×2 (15:45→20:36)
[2022-02-23] MEDS: Enoxaparin 40 MG/0.4 ML SYR SUBCUT SCH (20:34)
[2022-02-24] MEDS: Thiamine 100 MG/ML 2 ml VIAL 100 MG in NS 0.9% 50 ML 50 ML IV SCH (05:24)
[2022-02-24] MEDS: Multivitamins ADULT w/MIN LIQ 15 ML UDC PO SCH (09:09)
[2022-02-24] MEDS: CMCS: Olopatadine 0.1% OPHTH (NF) 1 DROP BTL BOTH EYES SCH ×2 (09:10→19:55)
[2022-02-24] MEDS ORDERED: Magnesium Sulfate 2 gm BAG 2 GM/50 ML BAG IVPB ONE (09:55)
[2022-02-24] MEDS: Enoxaparin 40 MG/0.4 ML SYR SUBCUT SCH (20:02)
[2022-02-25] MEDS: Thiamine 100 MG/ML 2 ml VIAL 100 MG in NS 0.9% 50 ML 50 ML IV SCH (05:19)
[2022-02-25 06:18] LABS: Hematocrit 35 % (42-52); Hemoglobin 12.6 g/dL (14.0-18.0); Mean Corpuscular HGB Conc 36 g/dL (31-36); Mean Corpuscular Hemoglobin 38 pg (27-31); Mean Corpuscular Volume 106 fL (80-94); Mean Platelet Volume 7.8 fL (7.4-10.4); Platelet Count 298 10^3/uL (150-450); Red Blood Count 3.33 10^6 /uL (4.18-5.48); Red Cell Distribution Width 14 % (10-15); White Blood Count 9.9 10^3/uL (3.5-10.8)
[2022-02-25 07:02] LABS: Albumin 3.1 g/dL (3.2-5.2); Albumin/Globulin Ratio 0.9 (1-3); Calcium 9.1 mg/dL (8.6-10.3); Globulin 3.6 g/dL (2-4); Magnesium 1.7 mg/dL (1.9-2.7); Phosphorus 4.5 mg/dL (2.5-5.0); Potassium 3.7 mmol/L (3.5-5.0); Total Bilirubin 0.7 mg/dL (0.2-1.0); Total Protein 6.7 g/dL (6.4-8.9); eGFR CKD-EPI 124.4 (>60)
[2022-02-25] MEDS ORDERED: Magnesium Sulfate 2 gm BAG 2 GM/50 ML BAG IVPB ONE (07:42)
[2022-02-25] MEDS: Multivitamins ADULT w/MIN LIQ 15 ML UDC PO SCH (08:49)
[2022-02-25] MEDS: CMCS: Olopatadine 0.1% OPHTH (NF) 1 DROP BTL BOTH EYES SCH ×2 (08:49→22:06)
[2022-02-25] MEDS: Enoxaparin 40 MG/0.4 ML SYR SUBCUT SCH (22:04)
[2022-02-26 06:23] LABS: Hematocrit 33 % (42-52); Hemoglobin 11.3 g/dL (14.0-18.0); Mean Corpuscular HGB Conc 34 g/dL (31-36); Mean Corpuscular Hemoglobin 35 pg (27-31); Mean Corpuscular Volume 104 fL (80-94); Mean Platelet Volume 7.9 fL (7.4-10.4); Platelet Count 272 10^3/uL (150-450); Red Cell Distribution Width 14 % (10-15); White Blood Count 10.1 10^3/uL (3.5-10.8)
[2022-02-26 06:45] LABS: Calcium 8.8 mg/dL (8.6-10.3); Magnesium 1.4 mg/dL (1.9-2.7); Potassium 3.6 mmol/L (3.5-5.0); eGFR CKD-EPI 130.1 (>60)
[2022-02-26] MEDS ORDERED: Magnesium Sulfate IV 3 GM in NS 0.9% 100 ml BAG 100 ML IVPB ONE (07:27)
[2022-02-26] MEDS: CMCS: Olopatadine 0.1% OPHTH (NF) 1 DROP BTL BOTH EYES SCH (08:55)
[2022-02-26] MEDS: Multivitamins ADULT w/MIN LIQ 15 ML UDC PO SCH (08:56)
[2022-02-26] MEDS ORDERED: Nystatin TOP POWDER 15 GM BTL TOPICAL SCH (09:00)
[2022-02-26 11:58] VITALS: BP 117/72
== END 2022-02-26 12:18 | disposition swing bed (61) | DRG 720 ==
LOC: ED 12:40 → EDHOLD 15:01 → SUATTDRO 15:01 → ICU 15:53 → MED 02-12 14:32
PROVIDERS: ADMIT Surgery Surgical Critical Care; ATTEND Family Medicine

== ENCOUNTER 2022-02-26 13:39 | Inpatient (IN) ==
[2022-02-26] MEDS ORDERED: guaiFENesin 100 mg/5 ml LIQ unit dose cup NG TUBE PRN (14:25)
[2022-02-26] MEDS ORDERED: Albuterol/Ipratropium NEB.SOL (2.5/0.5 MG) 3 ML NEB.SOLN INH PRN (14:25)
[2022-02-26] MEDS: Nystatin TOP POWDER 15 GM BTL TOPICAL SCH (22:28)
[2022-02-26] MEDS: CMCS: Olopatadine 0.1% OPHTH (NF) 1 DROP BTL BOTH EYES SCH (22:28)
[2022-02-26] MEDS: Enoxaparin 40 MG/0.4 ML SYR SUBCUT SCH (22:31)
[2022-02-27] MEDS: Multivitamins ADULT w/MIN LIQ 15 ML UDC PO SCH (10:35)
[2022-02-27] MEDS: Nystatin TOP POWDER 15 GM BTL TOPICAL SCH ×2 (10:35→19:51)
[2022-02-27] MEDS: CMCS: Olopatadine 0.1% OPHTH (NF) 1 DROP BTL BOTH EYES SCH ×2 (10:35→19:51)
[2022-02-27] MEDS: Enoxaparin 40 MG/0.4 ML SYR SUBCUT SCH (22:47)
[2022-02-28] MEDS: Nystatin TOP POWDER 15 GM BTL TOPICAL SCH ×2 (08:42→23:07)
[2022-02-28] MEDS: Multivitamins ADULT w/MIN LIQ 15 ML UDC PO SCH (08:42)
[2022-02-28] MEDS: CMCS: Olopatadine 0.1% OPHTH (NF) 1 DROP BTL BOTH EYES SCH ×2 (08:43→23:07)
[2022-02-28] MEDS: Enoxaparin 40 MG/0.4 ML SYR SUBCUT SCH (23:07)
[2022-03-01] MEDS: Nystatin TOP POWDER 15 GM BTL TOPICAL SCH ×2 (09:29→21:10)
[2022-03-01] MEDS: Multivitamins ADULT w/MIN LIQ 15 ML UDC PO SCH (09:31)
[2022-03-01] MEDS: CMCS: Olopatadine 0.1% OPHTH (NF) 1 DROP BTL BOTH EYES SCH ×2 (09:37→21:10)
[2022-03-01] MEDS: Enoxaparin 40 MG/0.4 ML SYR SUBCUT SCH (21:11)
[2022-03-02] MEDS: Multivitamins ADULT w/MIN LIQ 15 ML UDC PO SCH (08:39)
[2022-03-02] MEDS: CMCS: Olopatadine 0.1% OPHTH (NF) 1 DROP BTL BOTH EYES SCH ×2 (08:39→20:13)
[2022-03-02] MEDS: Nystatin TOP POWDER 15 GM BTL TOPICAL SCH ×2 (08:39→20:14)
[2022-03-02] MEDS: Enoxaparin 40 MG/0.4 ML SYR SUBCUT SCH (21:39)
[2022-03-03] MEDS: Multivitamins ADULT w/MIN LIQ 15 ML UDC PO SCH (09:37)
[2022-03-03] MEDS: CMCS: Olopatadine 0.1% OPHTH (NF) 1 DROP BTL BOTH EYES SCH ×2 (09:37→20:28)
[2022-03-03] MEDS: Nystatin TOP POWDER 15 GM BTL TOPICAL SCH ×2 (09:38→20:29)
[2022-03-03] MEDS: Enoxaparin 40 MG/0.4 ML SYR SUBCUT SCH (21:20)
[2022-03-04] MEDS: CMCS: Olopatadine 0.1% OPHTH (NF) 1 DROP BTL BOTH EYES SCH ×2 (09:26→20:39)
[2022-03-04] MEDS: Multivitamins ADULT w/MIN LIQ 15 ML UDC PO SCH (09:26)
[2022-03-04] MEDS: Nystatin TOP POWDER 15 GM BTL TOPICAL SCH ×2 (15:50→20:40)
[2022-03-04] MEDS: Enoxaparin 40 MG/0.4 ML SYR SUBCUT SCH (20:36)
[2022-03-05] MEDS: Multivitamins ADULT w/MIN LIQ 15 ML UDC PO SCH (09:38)
[2022-03-05] MEDS: CMCS: Olopatadine 0.1% OPHTH (NF) 1 DROP BTL BOTH EYES SCH ×2 (09:44→20:42)
[2022-03-05] MEDS: Nystatin TOP POWDER 15 GM BTL TOPICAL SCH ×2 (09:46→20:42)
[2022-03-05] MEDS: Enoxaparin 40 MG/0.4 ML SYR SUBCUT SCH (20:43)
[2022-03-06] MEDS: Multivitamins ADULT w/MIN LIQ 15 ML UDC PO SCH (08:57)
[2022-03-06] MEDS: CMCS: Olopatadine 0.1% OPHTH (NF) 1 DROP BTL BOTH EYES SCH ×2 (08:57→21:54)
[2022-03-06] MEDS: Nystatin TOP POWDER 15 GM BTL TOPICAL SCH ×2 (08:58→21:43)
[2022-03-06] MEDS: Enoxaparin 40 MG/0.4 ML SYR SUBCUT SCH (21:53)
[2022-03-07] MEDS: CMCS: Olopatadine 0.1% OPHTH (NF) 1 DROP BTL BOTH EYES SCH ×2 (08:53→20:15)
[2022-03-07] MEDS: Multivitamins ADULT w/MIN LIQ 15 ML UDC PO SCH (08:54)
[2022-03-07] MEDS: Nystatin TOP POWDER 15 GM BTL TOPICAL SCH ×2 (09:21→20:14)
[2022-03-07] MEDS: Enoxaparin 40 MG/0.4 ML SYR SUBCUT SCH (20:20)
[2022-03-08] MEDS: Multivitamins ADULT w/MIN LIQ 15 ML UDC PO SCH (10:46)
[2022-03-08] MEDS: CMCS: Olopatadine 0.1% OPHTH (NF) 1 DROP BTL BOTH EYES SCH ×2 (10:46→21:24)
[2022-03-08] MEDS: Nystatin TOP POWDER 15 GM BTL TOPICAL SCH ×2 (10:52→21:24)
[2022-03-08] MEDS ORDERED: COVID VACC, MONOVAL PFIZER-TRIS 30 MCG/0.3 ML SYR IM ONE (16:00)
[2022-03-08] MEDS: Enoxaparin 40 MG/0.4 ML SYR SUBCUT SCH (21:29)
[2022-03-09] MEDS: Multivitamins ADULT w/MIN LIQ 15 ML UDC PO SCH (09:41)
[2022-03-09] MEDS: Nystatin TOP POWDER 15 GM BTL TOPICAL SCH ×3 (09:41→20:46)
[2022-03-09] MEDS: CMCS: Olopatadine 0.1% OPHTH (NF) 1 DROP BTL BOTH EYES SCH ×2 (09:42→20:54)
[2022-03-09] MEDS: Enoxaparin 40 MG/0.4 ML SYR SUBCUT SCH (20:52)
[2022-03-10] MEDS: CMCS: Olopatadine 0.1% OPHTH (NF) 1 DROP BTL BOTH EYES SCH ×2 (10:04→22:26)
[2022-03-10] MEDS: Multivitamins ADULT w/MIN LIQ 15 ML UDC PO SCH (10:04)
[2022-03-10] MEDS: Nystatin TOP POWDER 15 GM BTL TOPICAL SCH ×2 (10:05→22:21)
[2022-03-10] MEDS: Enoxaparin 40 MG/0.4 ML SYR SUBCUT SCH (22:26)
[2022-03-11 07:39] VITALS: BP 122/66
[2022-03-11] MEDS: CMCS: Olopatadine 0.1% OPHTH (NF) 1 DROP BTL BOTH EYES SCH (07:51)
[2022-03-11] MEDS: Nystatin TOP POWDER 15 GM BTL TOPICAL SCH (07:52)
[2022-03-11] MEDS: Multivitamins ADULT w/MIN LIQ 15 ML UDC PO SCH (07:55)
== END 2022-03-11 14:05 | disposition home health service (06) | DRG 720 ==
LOC: SUATTDRO 13:39 → MED 13:39
PROVIDERS: ADMIT Family Medicine; ATTEND Pediatrics

== ENCOUNTER 2024-05-11 22:06 | Observation (INO) ==
[2024-05-11 22:40] LABS: ABS Basophils 0.1 10^3/uL (0.0-0.1); ABS Eosinophils 0.1 10^3/uL (0.0-0.5); ABS Lymphocytes 1.9 10^3/uL (1.0-4.8); ABS Nucleated RBC 0.01 10^3/ul; Eosinophil % 1.1 %; Hematocrit 38.8 % (38-53); Hemoglobin 13.6 g/dL (13.2-16.3); Lymphocyte % 20.9 %; Mean Corpuscular Hemoglobin 35.1 pg (27-33); Mean Corpuscular Volume 100.4 fL (80-97); Mean Platelet Volume 8.8 fL (7.5-11.2); Nucleated Red Blood Cells % 0.1 %/100WBC (0.0-0.8); Platelet Count 255 10^3/uL (150-450); Red Blood Count 3.87 10^6/uL (4.06-5.63); Red Cell Distribution Width 13.4 % (12-17); White Blood Count 9.1 10^3/uL (3.6-10.2)
[2024-05-11 22:45] LABS: INR 1.21 (0.85-1.14)
[2024-05-11 23:17] LABS: Albumin 4.4 g/dL (3.2-5.2); Albumin/Globulin Ratio 1.6 (1-3); Calcium 9.6 mg/dL (8.6-10.3); Creatinine, Serum 0.63 mg/dL (0.67-1.17); Globulin 2.7 g/dL (2-4); Magnesium 1.7 mg/dL (1.9-2.7); Potassium 3.9 mmol/L (3.5-5.0); Total Bilirubin 0.5 mg/dL (0.2-1.0); Total Protein 7.1 g/dL (6.4-8.9); eGFR CKD-EPI 110.3 (>60)
[2024-05-11 23:55] LABS: High Sensitivity Troponin 1 Hr 4 pg/mL (<20)
[2024-05-12] MEDS ORDERED: Magnesium Sulf 4 GM/100 ML IV 4,000 MG/100 ML BAG IVPB ONE (00:51)
[2024-05-12] MEDS: Magnesium Sulf 4 GM/100 ML IV 4,000 MG/100 ML BAG IVPB ONE (01:16)
[2024-05-12] MEDS ORDERED: Sulfur Hexaflouride MICROSPHR 25 MG VIAL IV PRN (02:29)
[2024-05-12 04:34] LABS: Activated Partial Thrombo Time 31.5 seconds (26.0-38.0); INR 1.04 (0.85-1.14)
[2024-05-12 04:37] LABS: ABS Basophils 0.1 10^3/uL (0.0-0.1); ABS Eosinophils 0.2 10^3/uL (0.0-0.5); ABS Lymphocytes 2.4 10^3/uL (1.0-4.8); ABS Monocytes 1.1 10^3/uL (0.0-1.1); ABS Neutrophils 4.9 10^3/uL (1.5-7.6); ABS Nucleated RBC 0.01 10^3/ul; Eosinophil % 2.3 %; Hematocrit 37.5 % (38-53); Hemoglobin 13.1 g/dL (13.2-16.3); Lymphocyte % 27.5 %; Mean Corpuscular Hemoglobin 35.3 pg (27-33); Mean Corpuscular Hgb Conc 34.9 g/dL (31-36); Mean Corpuscular Volume 101.2 fL (80-97); Mean Platelet Volume 8.4 fL (7.5-11.2); Nucleated Red Blood Cells % 0.1 %/100WBC (0.0-0.8); Platelet Count 247 10^3/uL (150-450); Red Cell Distribution Width 13.8 % (12-17); White Blood Count 8.7 10^3/uL (3.6-10.2)
[2024-05-12 04:55] LABS: Creatinine, Serum 0.6 mg/dL (0.67-1.17); eGFR CKD-EPI 111.9 (>60)
[2024-05-12] MEDS ORDERED: Heparin 5000 UNITS/ML 1 mL VIAL SUBCUT SCH (09:00)
[2024-05-12] MEDS ORDERED: DULoxetine DR 60 mg CAP PO SCH (09:00)
[2024-05-12] MEDS ORDERED: Lidocaine PATCH 5% PATCH TRANSDERM SCH (09:00)
[2024-05-12] MEDS ORDERED: CMCS:Mirabegron 25 mg ER TAB (NF) PO SCH (09:00)
[2024-05-12] MEDS: Lidocaine PATCH 5% PATCH TRANSDERM SCH (09:22)
[2024-05-12] MEDS: DULoxetine DR 60 mg CAP PO SCH (09:23)
[2024-05-12] MEDS: CMCS:Mirabegron 25 mg ER TAB (NF) PO SCH (09:23)
[2024-05-12] MEDS: Heparin 5000 UNITS/ML 1 mL VIAL SUBCUT SCH (09:23)
[2024-05-12 10:27] LABS: Calcium 9.1 mg/dL (8.6-10.3); Creatinine, Serum 0.61 mg/dL (0.67-1.17); Potassium 3.8 mmol/L (3.5-5.0); eGFR CKD-EPI 111.3 (>60)
[2024-05-12 10:49] LABS: Urine Osmo 308 mOsm/kg (150-1150)
[2024-05-12 11:34] LABS: Magnesium 2.2 mg/dL (1.9-2.7)
[2024-05-13] MEDS: Lidocaine PATCH 5% PATCH TRANSDERM ONE (01:32)
[2024-05-13 07:47] LABS: ABS Basophils 0.1 10^3/uL (0.0-0.1); ABS Eosinophils 0.2 10^3/uL (0.0-0.5); ABS Lymphocytes 1.8 10^3/uL (1.0-4.8); Eosinophil % 2.1 %; Hematocrit 39.1 % (38-53); Hemoglobin 13.7 g/dL (13.2-16.3); Lymphocyte % 22.1 %; Mean Corpuscular Hemoglobin 35.3 pg (27-33); Mean Corpuscular Volume 100.9 fL (80-97); Mean Platelet Volume 8.6 fL (7.5-11.2); Platelet Count 218 10^3/uL (150-450); Red Blood Count 3.87 10^6/uL (4.06-5.63); Red Cell Distribution Width 13.2 % (12-17); White Blood Count 8.1 10^3/uL (3.6-10.2)
[2024-05-13] MEDS: Potassium Chlor 10 meq TAB PO ONE (08:55)
[2024-05-13 09:01] LABS: Calcium 9.1 mg/dL (8.6-10.3); Creatinine, Serum 0.66 mg/dL (0.67-1.17); Magnesium 1.9 mg/dL (1.9-2.7); Potassium 4.1 mmol/L (3.5-5.0); eGFR CKD-EPI 108.7 (>60)
[2024-05-13 14:13] VITALS: BP 102/61
== END 2024-05-13 15:40 | disposition home or self-care (01) ==
LOC: ED 22:06 → SUATTDRO 05-12 01:34 → EDHOLD 05-12 01:34 → INTOOBSV 05-12 01:34 → MEDTELE 05-12 15:08
PROVIDERS: ADMIT Internal Medicine; ATTEND Hospitalist